=== PATIENT | male | born 1980 | race American Indian/Alaskan Native ===

== ENCOUNTER 2016-06-29 14:22 | Emergency (ER) | payer OTHER, MEDICAID ==
--- NOTE | 2016-06-29 14:24 | EDM.PDOC ---
[id number]: chest pain [id number] Time Seen by Provider: 06/29/16 14:24 Source of Information: Reports: Patient, RN, RN notes reviewed History Limitations: Reports: No limitations - History of Present Illness INITIAL COMMENTS - FREE TEXT/NARRATIVE: Complaining of sudden onset of sharp pain across the mid-chest at approximately 10 a.m. The sharp pain quickly faded to a dull ache and went away within a few minutes. Onset of pain was while at rest. The pain returned a couple hours later and patient called the ambulance to come and check him out. Paramedics told patient his EKG was normal and gave patient aspirin 324mg pox1. Patient declined ambulance transfer because the pain went away again. The pain returned a third time with more o fa pressure-like pain accompanied with SOB and did not go away. Symptom Onset Date: 06/30/16 Severity: severe Location, General: Reports: chest Quality: Reports: Ache Improves with: Reports: None Worsens with: Reports: None Context, General: Reports: Other (resting) Associated Symptoms (General): Reports: no other symptoms - Related Data Allergies/ADRs: Allergies Allergy/AdvReac Type Severity Reaction Status Date / Time amoxicillin Allergy Other Verified 06/29/16 14:52 Home Meds: Home Meds . [No Known Home Meds] 06/23/15 [History] Past Medical History HEENT History: Reports: Impaired vision Other HEENT History: wears corrective lenses Cardiovascular History: Reports: Other (see below) Other Cardiovascular History: Tachycardic episode about 6 years ago. Related it to caffiene. Had heart workup and angiogram. SVT. A-fib. Gastrointestinal History: Reports: GERD Dermatologic History: Reports: Other (see below) Other Dermatologic History: fatty tumor removed back of head - Past Surgical History Cardiovascular Surgical History: Reports: Other (see below) Other Cardiovascular Surgeries/Procedures: angiogram Social & Family History - Family History HEENT: Reports: None Cardiac: Reports: Other (see below) (Mother has some type of heart problem) - Tobacco Use Smoking Status *Q: Current Every Day Smoker Years of Tobacco use: 21 Packs/Tins Daily: 3 Used Tobacco, but Quit: No Second Hand Smoke Exposure: Yes - Caffeine Use Caffeine Use: Reports: Coffee, Soda - Recreational Drug Use Recreational Drug Use: No ED ROS GENERAL - Review of Systems Review Of Systems: ROS reveals no pertinent complaints other than HPI. ED EXAM, GENERAL - Physical Exam Exam: See Below Exam Limited By: No limitations General Appearance: alert, WD/WN, no apparent distress Eye Exam: bilateral eye: normal inspection Ears: normal external exam, normal canal, hearing grossly normal, normal TMs Nose: normal inspection, normal mucosa, no blood Throat/Mouth: Normal inspection, Normal lips, Normal teeth, Normal gums, Normal oropharynx, Normal voice, No airway compromise Head: atraumatic, normocephalic Neck: normal inspection, supple, non-tender, full range of motion Respiratory/Chest: no respiratory distress, lungs clear, normal breath sounds, no accessory muscle use, chest non-tender Cardiovascular: normal peripheral pulses, regular rate, rhythm, no edema, no gallop, no JVD, no murmur, no rub GI/Abdominal: normal bowel sounds, soft, non tender, no organomegaly, no distention, no abnormal bruit, no mass Back Exam: normal inspection, full range of motion, NT Extremities: normal inspection, normal range of motion, non-tender, normal capillary refill, no pedal edema Neurological: alert, oriented, CN II-XII intact, normal cognition, normal gait, normal reflexes, no motor/sensory deficits Psychiatric: normal affect, normal mood Skin Exam: Warm, Dry, Intact, Normal color, No rash Lymphatic: no adenopathy EKG INTERPRETATION EKG Date: 06/29/16 Time: 14:37 Rhythm: other (sinus rhythm) Rate (beats/min): 84 [place]: normal P-wave: present QRS: normal ST-T: normal QT: normal Course - Vital Signs Last Recorded V/S: Last Vital Signs Temp 36.7 C 06/29/16 15:53 Pulse 78 06/29/16 15:53 Resp 19 06/29/16 15:53 BP 111/47 L 06/29/16 15:53 Pulse Ox 96 06/29/16 15:53 - Orders/Labs/Meds Labs: Laboratory Tests 06/29/16 06/29/16 06/29/16 Range/Units 14:57 14:57 14:57 WBC 6.8 (5.0-10.0) 10^3/uL RBC 4.81 (4.6-6.2) 10^6/uL Hgb 15.5 (14.0-18.0) g/dL Hct 44.3 (40.0-54.0) % MCV 92.1 (80-100) fL MCH 32.2 (27.0-34.0) pg MCHC 35.0 (33.0-35.0) g/dL Plt Count 229 (150-450) 10^3/uL Neut % (Auto) 57.1 (42.2-75.2) % Lymph % (Auto) 26.0 (20.5-50.1) % [place] % (Auto) 9.2 H (2-8) % Eos % (Auto) 6.2 H (1.0-3.0) % Baso % (Auto) 1.5 H (0.0-1.0) % D-Dimer, Quantitative < 100 (0-400) ng/mL Sodium 141 (135-145) mmol/L Potassium 4.2 (3.6-5.0) mmol/L Chloride 106 (101-111) mmol/L Carbon Dioxide 27.0 (21.0-31.0) mmol/L Anion Gap 12.2 BUN 22 H (7-18) mg/dL Creatinine 1.3 (0.6-1.3) mg/dL Est Cr Clr Drug Dosing 79.31 mL/min Estimated GFR (MDRD) > 60 BUN/Creatinine Ratio 16.92 Glucose 108 H (74-105) mg/dL Calcium 9.0 (8.4-10.2) mg/dl Total Bilirubin 1.0 (0.2-1.0) mg/dL AST 24 (10-42) IU/L ALT 36 (10-60) IU/L Alkaline Phosphatase 46 (42-121) IU/L Creatine Kinase (26-174) IU/L Creatine Kinase Index (0-2.4) % CK-MB (CK-2) (0.4-4.7) ng/mL Troponin I 0.04 H* (0.00-0.02) ng/ml Total Protein 6.8 (6.7-8.2) g/dl Albumin 4.6 (3.2-5.5) g/dl Globulin 2.2 Albumin/Globulin Ratio 2.09 Amylase 65 (28-100) U/L Lipase 39 (22-51) U/L Urine Color (YELLOW) Urine Appearance (CLEAR) Urine pH (5.0-9.0) Ur Specific [place] (1.005-1.030) Urine Protein (NEGATIVE) Urine Glucose (UA) (NEGATIVE) Urine Ketones (NEGATIVE) Urine Occult Blood (NEGATIVE) Urine Nitrite (NEGATIVE) Urine Bilirubin (NEGATIVE) Urine Urobilinogen (0.2-1.0) mg/dL Ur Leukocyte Esterase (NEGATIVE) Urine RBC /HPF Urine WBC (0-5/HPF) /HPF Amorphous Sediment (0/HPF) /HPF Urine Opiates Screen (NEGATIVE) Ur Oxycodone Screen (NEGATIVE) Urine Methadone Screen (NEGATIVE) Ur Barbiturates Screen (NEGATIVE) U Tricyclic Antidepress (NEGATIVE) Ur Phencyclidine Scrn (NEGATIVE) Ur Amphetamine Screen (NEGATIVE) U Methamphetamines Scrn (NEGATIVE) Urine MDMA Screen (NEGATIVE) U Benzodiazepines Scrn (NEGATIVE) Urine Cocaine Screen (NEGATIVE) U Marijuana (THC) Screen (NEGATIVE) Ethyl Alcohol < 5 mg/dL 06/29/16 06/29/16 06/29/16 Range/Units 14:57 15:00 15:00 WBC (5.0-10.0) 10^3/uL RBC (4.6-6.2) 10^6/uL Hgb (14.0-18.0) g/dL Hct (40.0-54.0) % MCV (80-100) fL MCH (27.0-34.0) pg MCHC (33.0-35.0) g/dL Plt Count (150-450) 10^3/uL Neut % (Auto) (42.2-75.2) % Lymph % (Auto) (20.5-50.1) % [place] % (Auto) (2-8) % Eos % (Auto) (1.0-3.0) % Baso % (Auto) (0.0-1.0) % D-Dimer, Quantitative (0-400) ng/mL Sodium (135-145) mmol/L Potassium (3.6-5.0) mmol/L Chloride (101-111) mmol/L Carbon Dioxide (21.0-31.0) mmol/L Anion Gap BUN (7-18) mg/dL Creatinine (0.6-1.3) mg/dL Est Cr Clr Drug Dosing mL/min Estimated GFR (MDRD) BUN/Creatinine Ratio Glucose (74-105) mg/dL Calcium (8.4-10.2) mg/dl Total Bilirubin (0.2-1.0) mg/dL AST (10-42) IU/L ALT (10-60) IU/L Alkaline Phosphatase (42-121) IU/L Creatine Kinase 120 (26-174) IU/L Creatine Kinase Index 1.8 (0-2.4) % CK-MB (CK-2) 2.10 (0.4-4.7) ng/mL Troponin I (0.00-0.02) ng/ml Total Protein (6.7-8.2) g/dl Albumin (3.2-5.5) g/dl Globulin Albumin/Globulin Ratio Amylase (28-100) U/L Lipase (22-51) U/L Urine Color Yellow (YELLOW) Urine Appearance Clear (CLEAR) Urine pH 6.5 (5.0-9.0) Ur Specific [place] 1.010 (1.005-1.030) Urine Protein Negative (NEGATIVE) Urine Glucose (UA) Negative (NEGATIVE) Urine Ketones Negative (NEGATIVE) Urine Occult Blood Negative (NEGATIVE) Urine Nitrite Negative (NEGATIVE) Urine Bilirubin Negative (NEGATIVE) Urine Urobilinogen 0.2 (0.2-1.0) mg/dL Ur Leukocyte Esterase Negative (NEGATIVE) Urine RBC 0-5 /HPF Urine WBC Not seen (0-5/HPF) /HPF Amorphous Sediment Few (0/HPF) /HPF Urine Opiates Screen Negative (NEGATIVE) Ur Oxycodone Screen Negative (NEGATIVE) Urine Methadone Screen Negative (NEGATIVE) Ur Barbiturates Screen Negative (NEGATIVE) U Tricyclic Antidepress Negative (NEGATIVE) Ur Phencyclidine Scrn Negative (NEGATIVE) Ur Amphetamine Screen Negative (NEGATIVE) U Methamphetamines Scrn Negative (NEGATIVE) Urine MDMA Screen Negative (NEGATIVE) U Benzodiazepines Scrn Negative (NEGATIVE) Urine Cocaine Screen Negative (NEGATIVE) U Marijuana (THC) Screen Negative (NEGATIVE) Ethyl Alcohol mg/dL Meds: Medications Discontinued Medications Generic Name Dose Route Start Last Admin Trade Name Freq PRN Reason Stop Dose Admin Nitroglycerin 0.4 mg 06/29/16 14:53 06/29/16 15:13 Nitrostat SL 0.4 mg Q5M PRN Administration Chest Pain Sodium Chloride 10 ml 06/29/16 14:45 06/29/16 14:30 Saline Flush FLUSH 10 ml ASDIRECTED PRN Administration Keep Vein Open - Radiology Interpretation Free Text/Narrative:: Chest x-ray: Per rad report normal. Departure - Departure Time of Disposition: 15:49 Disposition: DC/Tfer to Acute Hospital 02 Reason for Transfer *Q: Primary PCI Indicated Condition: serious Clinical Impression: Non-STEMI (non-ST elevated myocardial infarction) Referrals: PCP,None [Ordering Only Provider] - Forms: ED Department Discharge, Interfacility Transfer CECILE
[2016-06-29] MEDS ORDERED: Sodium Chloride 0.9% 10 ML Syringe FLUSH PRN (14:45)
[2016-06-29] MEDS: Nitroglycerin 0.4 MG Tab.SL SL PRN ×2 (15:04→15:13)
[2016-06-29 15:30] LABS: CHLORIDE,CL 106 mmol/L (101-111); SODIUM,NA 141 mmol/L (135-145)
[2016-06-29 15:56] VITALS: BP 111/47
--- NOTE | 2016-07-21 13:20 | EKG ---
06/29/2016- CARLOS PEÑALOZA - This a standard 12-lead EKG showing normal sinus rhythm, with a heart rate of 84beats per minute. Normal PVR interval and QRS duration. Normal axis. Nosignificant ST-T changes. [facility] /[id number] [facility]
== END 2016-06-29 16:30 ==
LOC: DL.ED 14:22
DX: I21.4 Non-ST elevation (NSTEMI) myocardial infarction (principal); K21.9 Gastro-esophageal reflux disease without esophagitis; I48.91 Unspecified atrial fibrillation; F17.200 Nicotine dependence, unspecified, uncomplicated; Z88.1 Allergy status to other antibiotic agents
CPT/HCPCS: 36415; 71010; 80053; 80305; 81001; 82150; 82550; 82553; 83690; 84484; 85025; 85379; 93005; 99285; A9270; G0480; J7050

== ENCOUNTER 2017-04-17 23:22 | Emergency (ER) | payer OTHER, MEDICAID ==
--- NOTE | 2017-04-17 23:48 | EDM.PDOC ---
ED HPI GENERAL MEDICAL PROBLEM - General Chief Complaint: ENT Problem Stated Complaint: THROAT PAIN [id number] Time Seen by Provider: 04/17/17 23:47 Source of Information: Reports: Patient History Limitations: Reports: No Limitations - History of Present Illness INITIAL COMMENTS - FREE TEXT/NARRATIVE: 1 1/2 week h/o sore throat Throat Pain Score (Numeric/FACES): 9 - Related Data Allergies Allergy/AdvReac Type Severity Reaction Status Date / Time amoxicillin Allergy Other Verified 04/17/17 23:31 Home Meds: Home Meds . [No Known Home Meds] 06/23/15 [History] Past Medical History HEENT History: Reports: Impaired Vision Other HEENT History: wears corrective lenses Cardiovascular History: Reports: Other (See Below) Other Cardiovascular History: Tachycardic episode about 6 years ago. Related it to caffiene. Had heart workup and angiogram. SVT. A-fib. Respiratory History: Reports: None Gastrointestinal History: Reports: GERD Genitourinary History: Reports: None Musculoskeletal History: Reports: None Neurological History: Reports: None Psychiatric History: Reports: None Endocrine/Metabolic History: Reports: None Hematologic History: Reports: None Immunologic History: Reports: None Oncologic (Cancer) History: Reports: None Dermatologic History: Reports: Other (See Below) Other Dermatologic History: fatty tumor removed back of head - Infectious Disease History Infectious Disease History: Reports: Chicken Pox, Measles, Mumps - Past Surgical History Head Surgeries/Procedures: Reports: Other (See Below) HEENT Surgical History: Reports: Other (See Below) Cardiovascular Surgical History: Reports: Other (See Below) Social & Family History - Family History HEENT: Reports: None Cardiac: Reports: Other (See Below) - Tobacco Use Smoking Status *Q: Current Every Day Smoker Years of Tobacco use: 21 Packs/Tins Daily: 3 Used Tobacco, but Quit: No Second Hand Smoke Exposure: Yes - Caffeine Use Caffeine Use: Reports: Coffee, Soda - Recreational Drug Use Recreational Drug Use: No ED ROS ENT - Review of Systems Review Of Systems: ROS reveals no pertinent complaints other than HPI. ED EXAM, ENT - Physical Exam Exam: See Below Exam Limited By: No Limitations General Appearance: Alert, WD/WN, No Apparent Distress Ears: Hearing Grossly Normal Mouth/Throat: Pharyngeal Erythema, Tonsillar Erythema Head: Atraumatic Neck: Non-Tender, Full Range of Motion Respiratory/Chest: No Respiratory Distress Cardiovascular: Regular Rate, Rhythm GI/Abdominal: Soft, Non-Tender Neurological: Alert, Oriented, Normal Cognition, Normal Gait, No Motor/Sensory Deficits Psychiatric: Normal Affect, Normal Mood Skin: Warm, Dry, Normal Color Lymphatic: No Adenopathy Course - Vital Signs Last Recorded V/S: Last Vital Signs Temp 36.7 C 04/18/17 00:00 Pulse 90 04/18/17 00:00 Resp 20 04/18/17 00:00 BP 145/102 H 04/18/17 00:00 Pulse Ox 97 04/18/17 00:00 - Orders/Labs/Meds Orders: Active Orders 24 hr Category Date Time Status CULTURE STREP A CONFIRMATION [RM] Stat Lab 04/17/17 23:33 Results STREP SCRN A RAPID W CULT CONF [] Stat Lab 04/17/17 23:33 Results Meds: Medications Discontinued Medications Generic Name Dose Route Start Last Admin Trade Name Freq PRN Reason Stop Dose Admin Azithromycin 500 mg 04/18/17 00:21 Zithromax PO 04/18/17 00:22 ONETIME ONE - Re-Assessments/Exams Free Text/Narrative Re-Assessment/Exam: 04/18/17 00:23 results discussed with pt. Departure - Departure Time of Disposition: 00:23 Disposition: Home, Self-Care 01 Condition: Good Clinical Impression: Tonsillitis - Discharge Information Instructions: Tonsillitis, [id number] Forms: ED Department Discharge Additional Instructions: 1) avoid solid foods 2) have soft foods and liquids 3) try salt water gargle 4) take tylenol or motrin for fever 5) see clinic for BP check rx given; z-kaylyn - My Orders Last 24 Hours: My Active Orders 04/17/17 23:33 CULTURE STREP A CONFIRMATION [RM] Stat STREP SCRN A RAPID W CULT CONF [] Stat - Assessment/Plan Last 24 Hours: My Active Orders 04/17/17 23:33 CULTURE STREP A CONFIRMATION [RM] Stat STREP SCRN A RAPID W CULT CONF [RM] Stat
[2017-04-18 00:01] VITALS: BP 145/102
[2017-04-18] MEDS ORDERED: Azithromycin 250 MG Tab PO ONE (00:21)
[2017-04-18] MEDS ORDERED: Azithromycin 250 MG Tab ONE (00:29)
== END 2017-04-18 00:36 | disposition home or self-care (01) ==
LOC: DL.ED 23:22
DX: J03.90 Acute tonsillitis, unspecified (principal); F17.210 Nicotine dependence, cigarettes, uncomplicated; Z88.1 Allergy status to other antibiotic agents
CPT/HCPCS: 87081; 87430; 87804; 99282; A9270

== ENCOUNTER 2017-05-06 17:32 | Emergency (ER) | payer OTHER, MEDICAID ==
--- NOTE | 2017-05-06 17:37 | EDM.PDOC ---
<Ariel Stuart M - Last Filed: 05/06/17 18:36> ED HPI GENERAL MEDICAL PROBLEM - General Stated Complaint: CAME BY AMBULANCE, GENERAL Time Seen by Provider: 05/06/17 17:25 Source of Information: Reports: Patient History Limitations: Reports: No Limitations - History of Present Illness INITIAL COMMENTS - FREE TEXT/NARRATIVE: This 36 yo male patient was brought to the ED by [facility] due to left sided upper chest pain radiating down his right arm. The patient reports his pain started at about 1600 today. EMS has given the patient Aspirin and 2 doses of nitro with no change in symptoms. The patient reports his pain is currently a 7/10. The patient was sent to [place] about 1 month ago for a NSTEMI. The patient reports that he had an echo which demonstrated a "leaky" valve. The patient reports increased pain in the left anterior chest with inspiration and palpation of the left upper pectoral muscle. Onset: Today Onset Date: 05/06/17 Onset Time: 16:00 Duration: Constant Location: Reports: Chest (left upper chest) Quality: Reports: Ache Severity: Mild Improves with: Reports: None Worsens with: Reports: None Associated Symptoms: Reports: No Other Symptoms Treatments INSPECTOR INSULATION: Reports: Aspirin, Nitroglycerin (x2) Left Chest Pain Score (Numeric/FACES): 7 - Related Data Allergies Allergy/AdvReac Type Severity Reaction Status Date / Time amoxicillin Allergy Other Verified 05/06/17 17:32 Home Meds: Home Meds . [No Known Home Meds] 06/23/15 [History] Past Medical History HEENT History: Reports: Impaired Vision Other HEENT History: wears corrective lenses Cardiovascular History: Reports: Other (See Below) Other Cardiovascular History: Tachycardic episode about 6 years ago. Related it to caffiene. Had heart workup and angiogram. SVT. A-fib. Respiratory History: Reports: None Gastrointestinal History: Reports: GERD Genitourinary History: Reports: None Musculoskeletal History: Reports: None Neurological History: Reports: None Psychiatric History: Reports: None Endocrine/Metabolic History: Reports: None Hematologic History: Reports: None Immunologic History: Reports: None Oncologic (Cancer) History: Reports: None Dermatologic History: Reports: Other (See Below) Other Dermatologic History: fatty tumor removed back of head - Infectious Disease History Infectious Disease History: Reports: Chicken Pox, Measles, Mumps - Past Surgical History Head Surgeries/Procedures: Reports: Other (See Below) HEENT Surgical History: Reports: Other (See Below) Cardiovascular Surgical History: Reports: Other (See Below) Social & Family History - Family History HEENT: Reports: None Cardiac: Reports: Other (See Below) - Tobacco Use Smoking Status *Q: Current Every Day Smoker Years of Tobacco use: 21 Packs/Tins Daily: 3 Used Tobacco, but Quit: No Second Hand Smoke Exposure: Yes - Caffeine Use Caffeine Use: Reports: Coffee, Soda - Recreational Drug Use Recreational Drug Use: No ED ROS GENERAL - Review of Systems Review Of Systems: ROS reveals no pertinent complaints other than HPI. ED EXAM, GENERAL - Physical Exam Exam: See Below Exam Limited By: No Limitations General Appearance: Alert, WD/WN, Moderate Distress, Obese Eye Exam: Bilateral Eye: EOMI, Normal Inspection, PERRL Ears: Normal External Exam, Normal Canal, Hearing Grossly Normal, Normal TMs Nose: Normal Inspection, Normal Mucosa, No Blood Throat/Mouth: Normal Inspection, Normal Lips, Normal Teeth, Normal Gums, Normal Oropharynx, Normal Voice, No Airway Compromise Head: Atraumatic, Normocephalic Neck: Normal Inspection, Supple, Non-Tender, Full Range of Motion Respiratory/Chest: No Respiratory Distress, Lungs Clear, Normal Breath Sounds, No Accessory Muscle Use, Chest Non-Tender Cardiovascular: Normal Peripheral Pulses, Regular Rate, Rhythm, No Edema, No Gallop, No JVD, No Murmur, No Rub GI/Abdominal: Normal Bowel Sounds, Soft, Non-Tender, No Organomegaly, No Distention, No Abnormal Bruit, No Mass (Male) Exam: Deferred Rectal (Males) Exam: Deferred Extremities: Normal Inspection, Normal Range of Motion, Non-Tender, Normal Capillary Refill, No Pedal Edema Neurological: Alert, Oriented, CN II-XII Intact, Normal Cognition, Normal Gait, Normal Reflexes, No Motor/Sensory Deficits Psychiatric: Normal Affect, Normal Mood Skin Exam: Warm, Dry, Intact, Normal Color, No Rash Lymphatic: No Adenopathy Course - Vital Signs Last Recorded V/S: Last Vital Signs Temp 98.9 F 05/06/17 23:41 Pulse 70 05/06/17 23:41 Resp 14 05/06/17 23:41 BP 128/69 05/06/17 23:41 Pulse Ox 97 02/14/18 23:41 - Orders/Labs/Meds Orders: Active Orders 24 hr Category Date Time Status EKG Documentation Completion [RC] URGENT Care 05/06/17 17:29 Active Labs: Laboratory Tests 05/06/17 05/06/17 05/06/17 Range/Units 17:50 17:50 21:52 WBC 6.1 (5.0-10.0) 10^3/uL RBC 4.87 (4.6-6.2) 10^6/uL Hgb 15.3 (14.0-18.0) g/dL Hct 43.7 (40.0-54.0) % MCV 89.7 (80-100) fL MCH 31.4 (27.0-34.0) pg MCHC 35.0 (33.0-35.0) g/dL Plt Count 241 (150-450) 10^3/uL Neut % (Auto) 51.8 (42.2-75.2) % Lymph % (Auto) 32.0 (20.5-50.1) % [place] % (Auto) 9.9 H (2-8) % Eos % (Auto) 5.1 H (1.0-3.0) % Baso % (Auto) 1.2 H (0.0-1.0) % Sodium 139 (135-145) mmol/L Potassium 3.6 (3.6-5.0) mmol/L Chloride 106 (101-111) mmol/L Carbon Dioxide 25.0 (21.0-31.0) mmol/L Anion Gap 11.6 BUN 16 (7-18) mg/dL Creatinine 0.9 (0.6-1.3) mg/dL Est Cr Clr Drug Dosing 117.16 mL/min Estimated GFR (MDRD) > 60 BUN/Creatinine Ratio 17.77 Glucose 98 (74-105) mg/dL Calcium 9.1 (8.4-10.2) mg/dl Total Bilirubin 1.7 H (0.2-1.0) mg/dL AST 35 (10-42) IU/L ALT 46 (10-60) IU/L Alkaline Phosphatase 36 L (42-121) IU/L Troponin I < 0.02 < 0.02 (0.00-0.02) ng/ml Total Protein 6.6 L (6.7-8.2) g/dl Albumin 4.6 (3.2-5.5) g/dl Globulin 2.0 Albumin/Globulin Ratio 2.30 Departure - Departure Disposition: Home, Self-Care 01 Clinical Impression: Non-cardiac chest pain Instructions: Chest Wall Pain, [id number] Referrals: Christal Farrell MD [Primary Care Provider] - Forms: ED Department Discharge Additional Instructions: light diet avoid spicy food follow up in clinic 3-5 days <Diana Mejia - Last Filed: 05/07/17 05:10> Course - Re-Assessments/Exams Free Text/Narrative Re-Assessment/Exam: 05/07/17 03:01 Repeat troponin negative Departure - Departure Time of Disposition: 23:33 Condition: Good
[2017-05-06 18:16] LABS: CHLORIDE,CL 106 mmol/L (101-111); SODIUM,NA 139 mmol/L (135-145)
[2017-05-06 23:42] VITALS: BP 128/69
--- NOTE | 2017-05-07 23:04 | EKG ---
05/06/2017 - CARLOS PEÑALOZA I reviewed the EKG and agree with the machine's reading. [facility] /[id number]
== END 2017-05-06 23:40 | disposition home or self-care (01) ==
LOC: DL.ED 17:32
DX: R07.89 Other chest pain (principal); F17.210 Nicotine dependence, cigarettes, uncomplicated; Z88.1 Allergy status to other antibiotic agents
CPT/HCPCS: 36415; 71045; 80053; 84484; 85025; 93005; 99285

== ENCOUNTER 2017-07-05 23:22 | Emergency (ER) | payer MEDICAID, OTHER ==
[2017-07-05] MEDS ORDERED: Aspirin 81 MG Tab.Chew PO ONE (23:46)
[2017-07-05] MEDS ORDERED: Metoprolol Tartrate 5 MG/5 ML SDV IVPUSH ONE (23:49)
[2017-07-06 00:07] LABS: ANION GAP 13.8; CHLORIDE,CL 107 mmol/L (101-111); SODIUM,NA 139 mmol/L (135-145)
[2017-07-06] MEDS ORDERED: Sodium Chloride 0.9% 1,000 ML IV ONE (00:07)
[2017-07-06] MEDS ORDERED: Nitroglycerin 0.4 MG Tab.SL SL ONE ×2 (00:08→00:25)
[2017-07-06] MEDS ORDERED: Diltiazem 25 MG/5 ML SDV IVPUSH ONE (00:25)
[2017-07-06] MEDS ORDERED: Acetaminophen 325 MG Tab PO ONE (00:26)
[2017-07-06] MEDS ORDERED: Morphine 2 MG/ML Syringe IVPUSH ONE (00:41)
[2017-07-06] MEDS ORDERED: Ondansetron 4 MG/2 ML SDV IV ONE (00:42)
[2017-07-06] MEDS ORDERED: Enoxaparin 100 MG/1 ML Syringe SUBCUT ONE (01:41)
[2017-07-06] MEDS ORDERED: Diltiazem IR 30 MG Tab PO ONE (01:46)
--- NOTE | 2017-07-06 01:56 | EDM.PDOC ---
ED HPI GENERAL MEDICAL PROBLEM - General Chief Complaint: Chest Pain Stated Complaint: CHEST PAIN [id number] Time Seen by Provider: 07/05/17 23:30 Source of Information: Reports: Patient History Limitations: Reports: No Limitations - History of Present Illness INITIAL COMMENTS - FREE TEXT/NARRATIVE: C/O chest pain and feeling SOB with activity. Sudden onset of symptoms while at work. Has had similar symptoms in past. Denies prior LA but has had episodes of A-b. Is on no current medications. Reports last time he was transferred to was released following day and was told he had" leaky valve". Follow up with [facility] was attended and was told "he didn't need to follow again. Describes chesta pain as sharp ocassional radiation to left arm. No sweating, or nausea Anterior Chest Pain Score (Numeric/FACES): 5 - Related Data Allergies Allergy/AdvReac Type Severity Reaction Status Date / Time amoxicillin Allergy Other Verified 07/05/17 23:46 Home Meds: Home Meds . [No Known Home Meds] 06/23/15 [History] Past Medical History HEENT History: Reports: Impaired Vision Other HEENT History: wears corrective lenses Cardiovascular History: Reports: Hypertension, Other (See Below) Other Cardiovascular History: Tachycardic episode about 6 years ago. Related it to caffiene. Had heart workup and angiogram. SVT. A-fib. Respiratory History: Reports: None Gastrointestinal History: Reports: GERD Genitourinary History: Reports: None Musculoskeletal History: Reports: None Neurological History: Reports: None Psychiatric History: Reports: None, Anxiety Endocrine/Metabolic History: Reports: None, Diabetes, Type II Hematologic History: Reports: None Immunologic History: Reports: None Oncologic (Cancer) History: Reports: None Dermatologic History: Reports: Other (See Below) Other Dermatologic History: fatty tumor removed back of head - Infectious Disease History Infectious Disease History: Reports: Chicken Pox, Measles, Mumps - Past Surgical History Head Surgeries/Procedures: Reports: Other (See Below) HEENT Surgical History: Reports: Other (See Below) Cardiovascular Surgical History: Reports: Other (See Below) Social & Family History - Family History HEENT: Reports: None Cardiac: Reports: Other (See Below) - Tobacco Use Smoking Status *Q: Current Every Day Smoker Years of Tobacco use: 20 Packs/Tins Daily: 0.2 Used Tobacco, but Quit: No Second Hand Smoke Exposure: Yes - Caffeine Use Caffeine Use: Reports: Coffee Other Caffeine Use: 2cups/day - Recreational Drug Use Recreational Drug Use: No ED ROS GENERAL - Review of Systems Review Of Systems: ROS reveals no pertinent complaints other than HPI. ED EXAM, GENERAL - Physical Exam Exam: See Below Exam Limited By: No Limitations General Appearance: Alert, Mild Distress, Obese Eye Exam: Bilateral Eye: EOMI Ears: Normal External Exam Nose: Normal Inspection Throat/Mouth: Normal Inspection Head: Atraumatic, Normocephalic Neck: Normal Inspection Respiratory/Chest: Lungs Clear, Other (mild dyspnea with conversation noted when HR greater than 130.) Cardiovascular: No Edema, No JVD, No Murmur, Tachycardia, Irregularly Irregular GI/Abdominal: Normal Bowel Sounds, Soft Extremities: Normal Range of Motion Neurological: Alert, Normal Cognition Psychiatric: Normal Affect Skin Exam: Warm, Dry, Intact, Normal Color Course - Vital Signs Last Recorded V/S: Last Vital Signs Temp 97.8 F 07/06/17 02:03 Pulse 88 07/06/17 02:03 Resp 16 07/06/17 02:03 BP 125/75 07/06/17 02:03 Pulse Ox 93 L 07/06/17 02:03 - Orders/Labs/Meds Orders: Active Orders 24 hr Category Date Time Status EKG 12 Lead [EKG Documentation Completion] [RC] URGENT Care 07/06/17 00:05 Active EKG 12 Lead [EKG Documentation Completion] [RC] URGENT Care 07/06/17 00:47 Active UA W/MICROSCOPIC [URIN] Stat Lab 07/06/17 00:20 Ordered Labs: Laboratory Tests 07/05/17 07/05/17 07/05/17 Range/Units 23:35 23:35 23:35 WBC 7.4 (5.0-10.0) 10^3/uL RBC 5.09 (4.6-6.2) 10^6/uL Hgb 16.4 (14.0-18.0) g/dL Hct 46.2 (40.0-54.0) % MCV 90.8 (80-100) fL MCH 32.2 (27.0-34.0) pg MCHC 35.5 H (33.0-35.0) g/dL Plt Count 254 (150-450) 10^3/uL Neut % (Auto) 45.5 (42.2-75.2) % Lymph % (Auto) 31.4 (20.5-50.1) % Mccormick % (Auto) 11.9 H (2-8) % Eos % (Auto) 9.7 H (1.0-3.0) % Baso % (Auto) 1.5 H (0.0-1.0) % PT (9.0-12.0) SEC INR (0.9-1.2) D-Dimer, Quantitative (0-400) ng/mL Sodium 139 (135-145) mmol/L Potassium 3.8 (3.6-5.0) mmol/L Chloride 107 (101-111) mmol/L Carbon Dioxide 22.0 (21.0-31.0) mmol/L Anion Gap 13.8 BUN 28 H (7-18) mg/dL Creatinine 1.0 (0.6-1.3) mg/dL Est Cr Clr Drug Dosing 95.48 mL/min Estimated GFR (MDRD) > 60 BUN/Creatinine Ratio 28.00 Glucose 127 H (74-105) mg/dL Calcium 9.4 (8.4-10.2) mg/dl Total Bilirubin 1.5 H (0.2-1.0) mg/dL AST 35 (10-42) IU/L ALT 56 (10-60) IU/L Alkaline Phosphatase 43 (42-121) IU/L CK-MB (CK-2) 4.10 (0.4-4.7) ng/mL Troponin I < 0.02 (0.00-0.02) ng/ml Total Protein 7.4 (6.7-8.2) g/dl Albumin 4.8 (3.2-5.5) g/dl Globulin 2.6 Albumin/Globulin Ratio 1.85 Urine Color (YELLOW) Urine Appearance (CLEAR) Urine pH (5.0-9.0) Ur Specific Force (1.005-1.030) Urine Protein (NEGATIVE) Urine Glucose (UA) (NEGATIVE) Urine Ketones (NEGATIVE) Urine Occult Blood (NEGATIVE) Urine Nitrite (NEGATIVE) Urine Bilirubin (NEGATIVE) Urine Urobilinogen (0.2-1.0) mg/dL Ur Leukocyte Esterase (NEGATIVE) Urine RBC /HPF Urine WBC (0-5/HPF) /HPF Ur Epithelial Cells /HPF Urine Bacteria (0-FEW/HPF) /HPF 07/05/17 07/06/17 07/06/17 Range/Units 23:35 00:20 03:25 WBC (5.0-10.0) 10^3/uL RBC (4.6-6.2) 10^6/uL Hgb (14.0-18.0) g/dL Hct (40.0-54.0) % MCV (80-100) fL MCH (27.0-34.0) pg MCHC (33.0-35.0) g/dL Plt Count (150-450) 10^3/uL Neut % (Auto) (42.2-75.2) % Lymph % (Auto) (20.5-50.1) % Mccormick % (Auto) (2-8) % Eos % (Auto) (1.0-3.0) % Baso % (Auto) (0.0-1.0) % PT 10.1 (9.0-12.0) SEC INR 1.0 (0.9-1.2) D-Dimer, Quantitative < 100 (0-400) ng/mL Sodium (135-145) mmol/L Potassium (3.6-5.0) mmol/L Chloride (101-111) mmol/L Carbon Dioxide (21.0-31.0) mmol/L Anion Gap BUN (7-18) mg/dL Creatinine (0.6-1.3) mg/dL Est Cr Clr Drug Dosing mL/min Estimated GFR (MDRD) BUN/Creatinine Ratio Glucose (74-105) mg/dL Calcium (8.4-10.2) mg/dl Total Bilirubin (0.2-1.0) mg/dL AST (10-42) IU/L ALT (10-60) IU/L Alkaline Phosphatase (42-121) IU/L CK-MB (CK-2) 3.40 (0.4-4.7) ng/mL Troponin I (0.00-0.02) ng/ml Total Protein (6.7-8.2) g/dl Albumin (3.2-5.5) g/dl Globulin Albumin/Globulin Ratio Urine Color Yellow (YELLOW) Urine Appearance Clear (CLEAR) Urine pH 6.0 (5.0-9.0) Ur Specific Force 1.015 (1.005-1.030) Urine Protein Negative (NEGATIVE) Urine Glucose (UA) Negative (NEGATIVE) Urine Ketones Negative (NEGATIVE) Urine Occult Blood Negative (NEGATIVE) Urine Nitrite Negative (NEGATIVE) Urine Bilirubin Negative (NEGATIVE) Urine Urobilinogen 0.2 (0.2-1.0) mg/dL Ur Leukocyte Esterase Negative (NEGATIVE) Urine RBC 0-5 /HPF Urine WBC 0-5 (0-5/HPF) /HPF Ur Epithelial Cells Rare /HPF Urine Bacteria Few (0-FEW/HPF) /HPF / Range/Units 03:25 WBC (5.0-10.0) 10^3/uL RBC (4.6-6.2) 10^6/uL Hgb (14.0-18.0) g/dL Hct (40.0-54.0) % MCV (80-100) fL MCH (27.0-34.0) pg MCHC (33.0-35.0) g/dL Plt Count (150-450) 10^3/uL Neut % (Auto) (42.2-75.2) % Lymph % (Auto) (20.5-50.1) % Mccormick % (Auto) (2-8) % Eos % (Auto) (1.0-3.0) % Baso % (Auto) (0.0-1.0) % PT (9.0-12.0) SEC INR (0.9-1.2) D-Dimer, Quantitative (0-400) ng/mL Sodium (135-145) mmol/L Potassium (3.6-5.0) mmol/L Chloride (101-111) mmol/L Carbon Dioxide (21.0-31.0) mmol/L Anion Gap BUN (7-18) mg/dL Creatinine (0.6-1.3) mg/dL Est Cr Clr Drug Dosing mL/min Estimated GFR (MDRD) BUN/Creatinine Ratio Glucose (74-105) mg/dL Calcium (8.4-10.2) mg/dl Total Bilirubin (0.2-1.0) mg/dL AST (10-42) IU/L ALT (10-60) IU/L Alkaline Phosphatase (42-121) IU/L CK-MB (CK-2) (0.4-4.7) ng/mL Troponin I < 0.02 (0.00-0.02) ng/ml Total Protein (6.7-8.2) g/dl Albumin (3.2-5.5) g/dl Globulin Albumin/Globulin Ratio Urine Color (YELLOW) Urine Appearance (CLEAR) Urine pH (5.0-9.0) Ur Specific Force (1.005-1.030) Urine Protein (NEGATIVE) Urine Glucose (UA) (NEGATIVE) Urine Ketones (NEGATIVE) Urine Occult Blood (NEGATIVE) Urine Nitrite (NEGATIVE) Urine Bilirubin (NEGATIVE) Urine Urobilinogen (0.2-1.0) mg/dL Ur Leukocyte Esterase (NEGATIVE) Urine RBC /HPF Urine WBC (0-5/HPF) /HPF Ur Epithelial Cells /HPF Urine Bacteria (0-FEW/HPF) /HPF Meds: Medications Discontinued Medications Generic Name Dose Route Start Last Admin Trade Name Freq PRN Reason Stop Dose Admin Acetaminophen 650 mg 07/06/17 00:26 07/06/17 00:28 Tylenol PO 07/06/17 00:27 650 mg NOW ONE Administration Aspirin 325 mg 07/05/17 23:46 07/05/17 23:52 Aspirin PO 07/05/17 23:47 324 mg ONETIME ONE Administration Diltiazem HCl 10 mg 07/06/17 00:25 07/06/17 00:29 Diltiazem IVPUSH 07/06/17 00:26 10 mg ONETIME ONE Administration Diltiazem HCl 30 mg 07/06/17 01:46 07/06/17 01:51 Cardizem PO 07/06/17 01:47 30 mg ONETIME ONE Administration Enoxaparin Sodium 100 mg 07/06/17 01:41 07/06/17 01:59 Lovenox SUBCUT 07/06/17 01:42 100 mg ONETIME ONE Administration Sodium Chloride 1,000 mls @ 999 mls/hr 07/06/17 00:07 07/06/17 00:13 Normal Saline IV 07/06/17 01:07 999 mls/hr .BOLUS ONE Administration Metoprolol Tartrate 2.5 mg 07/05/17 23:49 07/05/17 23:53 Lopressor IVPUSH 07/05/17 23:50 2.5 mg ONETIME ONE Administration Morphine Sulfate 2 mg 07/06/17 00:41 07/06/17 00:50 Morphine IVPUSH 07/06/17 00:42 2 mg ONETIME ONE Administration Nitroglycerin 0.4 mg 07/06/17 00:08 07/06/17 00:13 Nitrostat SL 07/06/17 00:09 0.4 mg ONETIME ONE Administration Nitroglycerin 0.4 mg 07/06/17 00:25 07/06/17 00:27 Nitrostat SL 07/06/17 00:26 0.4 mg ONETIME ONE Administration Ondansetron HCl 4 mg 07/06/17 00:42 07/06/17 00:48 Zofran IV 07/06/17 00:43 4 mg ONETIME ONE Administration - Radiology Interpretation Free Text/Narrative:: normal cxr - Re-Assessments/Exams Free Text/Narrative Re-Assessment/Exam: 07/06/17 01:52 Minimal response t with lopressor, chest pain decreased to 5 with 2 nitro with drop in pressure. Morphine 2mg for pain, Cardiazem given with good response with conversion to NSR with rate in 80's. Patient pain free. TC consult with Dr. 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 Risk discussed with patient. Await repeat lab. Pos cardizem and lovenox one time. 07/06/17 04:11 Repeat troponin negative. Remains in NSR. Up walking HR sustained below 100. As patient refusing transfer to higher level of care for further evaluation patient to home. Has stated he will follow up in clinic with PCP in am for ongoing management. 07/06/17 04:27 Refusal for transfer form signed by patient. 07/06/17 04:35 Departure - Departure Time of Disposition: 04:38 Disposition: Home, Self-Care 01 Condition: Good Clinical Impression: Paroxysmal atrial fibrillation Instructions: Atrial Fibrillation, [id number] Referrals: Christal Farrell MD [Primary Care Provider] - Forms: ED Department Discharge Additional Instructions: Follow up in clinic in am Enteric Aspirin 325 one daily No smoking No caffeine Urgent follow up if racing heart or chest pain - My Orders Last 24 Hours: My Active Orders 07/06/17 00:05 EKG 12 Lead [EKG Documentation Completion] [RC] URGENT 07/06/17 00:20 UA W/MICROSCOPIC [URIN] Stat 07/06/17 00:47 EKG 12 Lead [EKG Documentation Completion] [RC] URGENT - Assessment/Plan Last 24 Hours: My Active Orders 07/06/17 00:05 EKG 12 Lead [EKG Documentation Completion] [RC] URGENT 07/06/17 00:20 UA W/MICROSCOPIC [URIN] Stat 07/06/17 00:47 EKG 12 Lead [EKG Documentation Completion] [RC] URGENT
[2017-07-06 02:05] VITALS: BP 125/75
--- NOTE | 2017-08-07 07:40 | EKG ---
07/06/2017- CARLOS PEÑALOZA - 2336 hours EKG is atrial fibrillation with a rate of 137. Oscar is within normal limits. IMPRESSION: Abnormal electrocardiogram compatible with atrial fibrillation with rapid ventricular response. [facility] /[id number]
--- NOTE | 2017-08-07 07:43 | EKG ---
07/06/2017 - JH CARLOS KARENA - 0055 hours EKG is sinus rhythm with a rate of 97. Normal MD interval. Normal axis. EKG is within normal limits. Comparing it to EKG on 07/05/2017, the rhythm has converted to sinus. [facility] /[id number]
== END 2017-07-06 04:31 | disposition home or self-care (01) ==
LOC: DL.ED 23:22
DX: I48.0 Paroxysmal atrial fibrillation (principal); I10 Essential (primary) hypertension; E11.9 Type 2 diabetes mellitus without complications; F17.210 Nicotine dependence, cigarettes, uncomplicated; Z88.1 Allergy status to other antibiotic agents
CPT/HCPCS: 36415; 71045; 80053; 81001; 82553; 84484; 85025; 85379; 85610; 93005; 96361; 96372; 96374; 96375; 99285; A9270; J1650; J2270; J2405; J3490; J7030

== ENCOUNTER 2017-10-08 00:19 | Emergency (ER) | payer MEDICAID ==
[2017-10-08 00:34] VITALS: BP 135/83
[2017-10-08] MEDS ORDERED: Lidocaine 1% 30 ML SDV INJECT ONE (00:36)
[2017-10-08] MEDS ORDERED: Bacitracin Oint 1 GM U/D Packet TOP ONE (00:36)
[2017-10-08] MEDS ORDERED: Doxycycline 100 MG Cap PO ONE (01:15)
--- NOTE | 2017-10-08 01:22 | EDM.PDOC ---
ED HPI GENERAL MEDICAL PROBLEM - General Chief Complaint: Bite:Animal, Insect Stated Complaint: SPIDER BITE [id number] Time Seen by Provider: 10/08/17 00:33 Source of Information: Reports: Patient History Limitations: Reports: No Limitations - History of Present Illness INITIAL COMMENTS - FREE TEXT/NARRATIVE: red area to right chest unsure if bug bite, draining when got out of shower, white pus type, area around increasing redness, tender. No hx skin infections No fever or chills. Right Chest Pain Score (Numeric/FACES): 2 - Related Data Allergies Allergy/AdvReac Type Severity Reaction Status Date / Time amoxicillin Allergy Other Verified 10/08/17 00:25 Home Meds: Home Meds . [No Known Home Meds] 06/23/15 [History] Past Medical History HEENT History: Reports: Impaired Vision Other HEENT History: wears corrective lenses Cardiovascular History: Reports: Hypertension, Other (See Below) Other Cardiovascular History: Tachycardic episode about 6 years ago. Related it to caffiene. Had heart workup and angiogram. SVT. A-fib. States he also has a "leaky heart valve" Respiratory History: Reports: None Gastrointestinal History: Reports: GERD Genitourinary History: Reports: None Musculoskeletal History: Reports: None Neurological History: Reports: None Psychiatric History: Reports: None, Anxiety Endocrine/Metabolic History: Reports: None, Diabetes, Type II Hematologic History: Reports: None Immunologic History: Reports: None Oncologic (Cancer) History: Reports: None Dermatologic History: Reports: Other (See Below) Other Dermatologic History: fatty tumor removed back of head - Infectious Disease History Infectious Disease History: Reports: Chicken Pox, Measles, Mumps - Past Surgical History Head Surgeries/Procedures: Reports: Other (See Below) Cardiovascular Surgical History: Reports: Other (See Below) Social & Family History - Family History Family Medical History: Noncontributory HEENT: Reports: None Cardiac: Reports: Other (See Below) - Tobacco Use Smoking Status *Q: Current Every Day Smoker Years of Tobacco use: 21 Packs/Tins Daily: 1 - Caffeine Use Caffeine Use: Reports: Coffee Other Caffeine Use: 2cups/day - Recreational Drug Use Recreational Drug Use: No ED ROS GENERAL - Review of Systems Review Of Systems: ROS reveals no pertinent complaints other than HPI. ED EXAM, ANIMAL BITE - Physical Exam Exam: See Below Exam Limited By: No Limitations General Appearance: Alert, No Apparent Distress Eye Exam: Bilateral Eye: EOMI Ears: Normal External Exam Throat/Mouth: Normal Inspection Head: Atraumatic, Normocephalic Neck: Normal Inspection. No: Lymphadenopathy (L), Lymphadenopathy (R) Respiratory/Chest: No Respiratory Distress, Lungs Clear, Other (red area upper right anterior chest) Cardiovascular: Regular Rate, Rhythm GI/Abdominal: Normal Bowel Sounds Extremities: Normal Inspection, Normal Range of Motion Neurological: Alert, Oriented, Normal Cognition Psychiatric: Normal Affect, Normal Mood Skin Exam: Other (5x4 red mildly indurated area, central punctate center with 1mm white center) ED ANIMAL BITE PROCEDURES - I&D Skin Prep: Providone-Iodine (Betadine) Local Anesthesia: Lidocaine: 1% Plain Local Anesthetic Volume: 1cc Area Incised With: 11 Blade Drainage: Purulent, Bloody, Small Amount Probed to Break Up Loculations: No Sterile Dressinx4(s) Complications: No Course - Vital Signs Last Recorded V/S: Last Vital Signs Temp 98.8 F 10/08/17 00:33 Pulse 84 10/08/17 00:33 Resp 20 10/08/17 00:33 BP 135/83 10/08/17 00:33 Pulse Ox 95 10/08/17 00:33 - Orders/Labs/Meds Orders: Active Orders 24 hr Category Date Time Status CULTURE WOUND [RM] Stat Lab 10/08/17 01:05 Received Meds: Medications Discontinued Medications Generic Name Dose Route Start Last Admin Trade Name Tena PRN Reason Stop Dose Admin Bacitracin 1 dose 10/08/17 00:36 10/08/17 01:09 Bacitracin Oint 1 Gm TOP 10/08/17 00:37 1 dose ONETIME ONE Administration Doxycycline Hyclate 100 mg 10/08/17 01:15 Vibramycin PO 10/08/17 01:16 ONETIME ONE Lidocaine HCl 30 ml 10/08/17 00:36 10/08/17 01:09 Xylocaine-Mpf 1% INJECT 10/08/17 00:37 30 ml ONETIME ONE Administration Departure - Departure Time of Disposition: 01:16 Disposition: Home, Self-Care 01 Condition: Good Clinical Impression: Abscess, Cellulitis of chest wall - Discharge Information Instructions: Cellulitis, Adult, [id number] Forms: ED Department Discharge Additional Instructions: warm pack to are 3 times daily 10minutes cover area with dressing if draining doxycycline 100mg one twice daily x 10 daysfollow up if increased redness or fevers tylenol or ibuprofen for discomfort - My Orders Last 24 Hours: My Active Orders 10/08/17 01:05 CULTURE WOUND [] Stat - Assessment/Plan Last 24 Hours: My Active Orders 10/08/17 01:05 CULTURE WOUND [RM] Stat
== END 2017-10-08 01:27 | disposition home or self-care (01) ==
LOC: DL.ED 00:19
DX: L03.313 Cellulitis of chest wall (principal); L02.213 Cutaneous abscess of chest wall; I10 Essential (primary) hypertension; E11.9 Type 2 diabetes mellitus without complications; F17.210 Nicotine dependence, cigarettes, uncomplicated
CPT/HCPCS: 10060; 87070; 87077; 87186; 99283; A9270

== ENCOUNTER 2019-03-15 18:26 | Emergency (ER) | payer MEDICAID, OTHER ==
[2019-03-15 18:38] VITALS: PULSE 88
[2019-03-15] MEDS ORDERED: Sodium Chloride 0.9% 10 ML Syringe FLUSH PRN (18:40)
[2019-03-15] MEDS ORDERED: Nitroglycerin 0.4 MG Tab.SL SL PRN (18:43)
[2019-03-15] MEDS ORDERED: Aspirin 81 MG Tab.Chew PO ONE (18:43)
[2019-03-15 18:55] VITALS: BP 133/62
--- NOTE | 2019-03-15 18:56 | EDM.PDOC ---
ED HPI GENERAL MEDICAL PROBLEM - General Chief Complaint: Cardiovascular Problem Stated Complaint: HEART FLUTTERING Time Seen by Provider: 03/15/19 19:07 Source of Information: Reports: Patient, RN, Other (Provider) History Limitations: Reports: No Limitations - History of Present Illness INITIAL COMMENTS - FREE TEXT/NARRATIVE: 38 year male who presents to the ER with complaints of chest pain x 9 hours and intermittently daily. He states he has been seen multiple times for complaints of the same. Admits he has Nitro but it has been missing for a couple of months and he could not get a refill. He has not been into the clinic for over a year for check. He states there is no triggers to his chest pain. Pain is 7/10 and constant with radiation into his left arm. He is currently on metoprolol and Lipitor which he admits he takes daily. He is also a smoking and states he smokes four cigarettes a day. He denies any chest injury, trauma or fall. Onset: Today Duration: Hour(s): (ten) Location: Reports: Chest Quality: Reports: Sharp (s) Severity: Moderate Improves with: Reports: None Worsens with: Reports: None Associated Symptoms: Reports: No Other Symptoms Treatments TAILOR'S AIDE: Reports: Aspirin (325) Left Anterior Chest Pain Score (Numeric/FACES): 7 - Related Data Allergies Allergy/AdvReac Type Severity Reaction Status Date / Time amoxicillin Allergy Other Verified 03/15/19 18:39 Home Meds: Home Meds Metoprolol Tartrate 25 mg PO BID 03/15/19 [History] atorvaSTATin [Lipitor] 20 mg PO DAILY 03/15/19 [History] Past Medical History HEENT History: Reports: Impaired Vision Other HEENT History: wears corrective lenses Cardiovascular History: Reports: Hypertension, Other (See Below) Other Cardiovascular History: Tachycardic episode about 6 years ago. Related it to caffiene. Had heart workup and angiogram. SVT. A-fib. States he also has a "leaky heart valve" Respiratory History: Reports: None Gastrointestinal History: Reports: GERD Genitourinary History: Reports: None Musculoskeletal History: Reports: None Neurological History: Reports: None Psychiatric History: Reports: None, Anxiety, Panic Attack Endocrine/Metabolic History: Reports: None Hematologic History: Reports: None Immunologic History: Reports: None Oncologic (Cancer) History: Reports: None Dermatologic History: Reports: Other (See Below) Other Dermatologic History: fatty tumor removed back of head - Infectious Disease History Infectious Disease History: Reports: Chicken Pox, Measles, Mumps - Past Surgical History Head Surgeries/Procedures: Reports: Other (See Below) Cardiovascular Surgical History: Reports: Other (See Below) Social & Family History - Family History Family Medical History: Noncontributory HEENT: Reports: None Cardiac: Reports: Other (See Below) - Tobacco Use Smoking Status *Q: Current Every Day Smoker Years of Tobacco use: 24 Packs/Tins Daily: 0.5 - Caffeine Use Caffeine Use: Reports: Coffee Other Caffeine Use: 2/day ED ROS GENERAL - Review of Systems Review Of Systems: See Below Constitutional: Reports: No Symptoms HEENT: Reports: No Symptoms Respiratory: Reports: No Symptoms Cardiovascular: Reports: Chest Pain Endocrine: Reports: No Symptoms GI/Abdominal: Reports: No Symptoms Musculoskeletal: Reports: No Symptoms Skin: Reports: No Symptoms Neurological: Reports: No Symptoms Psychiatric: Reports: No Symptoms Hematologic/Lymphatic: Reports: No Symptoms ED EXAM, GENERAL - Physical Exam Exam: See Below Exam Limited By: No Limitations General Appearance: Alert, WD/WN, No Apparent Distress Ears: Normal Canal, Hearing Grossly Normal, Normal TMs Throat/Mouth: Normal Inspection, Normal Lips, Normal Teeth, Normal Gums, Normal Oropharynx, Normal Voice, No Airway Compromise Neck: Normal Inspection, Supple, Non-Tender, Full Range of Motion Respiratory/Chest: No Respiratory Distress, Lungs Clear, Normal Breath Sounds, No Accessory Muscle Use, Chest Non-Tender Cardiovascular: Normal Peripheral Pulses, Regular Rate, Rhythm, No Edema, No Gallop, No JVD, No Murmur, No Rub Peripheral Pulses: 2+: Carotid (L), Carotid (R), Radial (L), Radial (R), Posterior Tibial (L), Posterior Tibial (R), Dorsalis Pedis (L), Dorsalis Pedis ( R) GI/Abdominal: Normal Bowel Sounds, Soft, Non-Tender, No Organomegaly, No Distention, No Abnormal Bruit, No Mass Extremities: Normal Inspection, Normal Range of Motion, Non-Tender, Normal Capillary Refill, No Pedal Edema Neurological: Alert, Oriented, CN II-XII Intact, Normal Cognition, Normal Gait, Normal Reflexes, No Motor/Sensory Deficits Psychiatric: Normal Affect, Normal Mood Skin Exam: Warm, Dry, Intact, Normal Color, No Rash Lymphatic: No Adenopathy EKG INTERPRETATION Rhythm: NSR Rate (Beats/Min): 69 [place]: Normal Course - Vital Signs Last Recorded V/S: Last Vital Signs Temp 95.5 F 03/15/19 18:30 Pulse 88 03/15/19 18:30 Resp 20 03/15/19 18:30 BP 133/62 03/15/19 18:53 Pulse Ox 96 03/15/19 18:30 - Orders/Labs/Meds Orders: Active Orders 24 hr Category Date Time Status EKG 12 Lead [EKG Documentation Completion] [] STAT Care 03/15/19 18:40 Inactive EKG 12 Lead [EKG Documentation Completion] [RC] URGENT Care 03/15/19 18:38 Active Peripheral IV Care [RC] . DIRECTED Care 03/15/19 18:40 Active Chest 1V Frontal [CR] Stat Exams 03/15/19 18:40 Taken DRUG SCREEN URINE BIORAD [URCHEM] Stat Lab 03/15/19 18:40 Ordered UA RFX WALDEMAR AND CULT IF INDIC [URIN] Stat Lab 03/15/19 18:40 Ordered Nitroglycerin [Nitrostat] Med 03/15/19 18:43 Active 0.4 mg SL Q5M PRN Sodium Chloride 0.9% [Saline Flush] Med 03/15/19 18:40 Active 10 ml FLUSH ASDIRECTED PRN Peripheral IV Insertion Adult [OM.PC] Stat Oth 03/15/19 18:40 Ordered Medication Orders Nitroglycerin (Nitrostat) 0.4 mg SL Q5M PRN PRN Reason: Chest Pain Last Admin: 03/15/19 18:53 Dose: 0.4 mg Sodium Chloride (Saline Flush) 10 ml FLUSH ASDIRECTED PRN PRN Reason: Keep Vein Open Last Admin: 03/15/19 18:55 Dose: 10 ml Labs: Laboratory Tests 03/15/19 03/15/19 03/15/19 Range/Units 18:40 18:40 18:40 WBC 6.0 (5.0-10.0) 10^3/uL RBC 4.83 (4.6-6.2) 10^6/uL Hgb 15.5 (14.0-18.0) g/dL Hct 44.1 (40.0-54.0) % MCV 91.3 (80-100) fL MCH 32.1 (27.0-34.0) pg MCHC 35.1 H (33.0-35.0) g/dL Plt Count 238 (150-450) 10^3/uL Neut % (Auto) 49.1 (42.2-75.2) % Lymph % (Auto) 31.9 (20.5-50.1) % [place] % (Auto) 11.2 H (2-8) % Eos % (Auto) 6.5 H (1.0-3.0) % Baso % (Auto) 1.3 H (0.0-1.0) % D-Dimer, Quantitative < 100 (0-400) ng/mL Sodium 140 (135-145) mmol/L Potassium 3.6 (3.6-5.0) mmol/L Chloride 108 (101-111) mmol/L Carbon Dioxide 24.0 (21.0-31.0) mmol/L Anion Gap 11.6 BUN 20 H (7-18) mg/dL Creatinine 1.0 (0.6-1.3) mg/dL Est Cr Clr Drug Dosing 100.16 mL/min Estimated GFR (MDRD) > 60 BUN/Creatinine Ratio 20.00 Glucose 111 H (74-105) mg/dL Calcium 8.5 (8.4-10.2) mg/dl Total Bilirubin 1.2 H (0.2-1.0) mg/dL AST 35 (10-42) IU/L ALT 55 (10-60) IU/L Alkaline Phosphatase 52 (42-121) IU/L Troponin I < 0.02 (0.00-0.02) ng/ml Total Protein 6.8 (6.7-8.2) g/dl Albumin 4.7 (3.2-5.5) g/dl Globulin 2.1 Albumin/Globulin Ratio 2.24 Lipase 47 (22-51) U/L Ethyl Alcohol < 5 mg/dL Meds: Medications Generic Name Dose Route Start Last Admin Trade Name Freq PRN Reason Stop Dose Admin Nitroglycerin 0.4 mg 03/15/19 18:43 03/15/19 18:53 Nitrostat SL 0.4 mg Q5M PRN Administration Chest Pain Sodium Chloride 10 ml 03/15/19 18:40 03/15/19 18:55 Saline Flush FLUSH 10 ml ASDIRECTED PRN Administration Keep Vein Open Discontinued Medications Generic Name Dose Route Start Last Admin Trade Name Tena PRN Reason Stop Dose Admin Aspirin 324 mg 03/15/19 18:43 03/15/19 18:51 Aspirin PO 03/15/19 18:44 324 mg ONETIME ONE Administration - Radiology Interpretation Free Text/Narrative:: PROCEDURE INFORMATION: Exam: XR Chest, 1 View Exam date and time: 03/15/2019 6:59 PM Age: 38 years old Clinical indication: Chest pain; Type not specified TECHNIQUE: Imaging protocol: XR of the chest Views: 1 view. COMPARISON: CR Chest 1V Frontal 02/07/2019 10:33 PM FINDINGS: Lungs: Unremarkable. No consolidation. Pleural space: Unremarkable. No pleural effusion. No pneumothorax. Heart/Mediastinum: Unremarkable. No cardiomegaly. Bones/joints: Unremarkable. IMPRESSION: No acute findings. Thank you for allowing us to participate in the care of your patient. Dictated and Authenticated by: Zeke Santiago DO 03/15/2019 7:15 PM Central Time ([place] & [place]) Departure - Departure Time of Disposition: 19:44 Disposition: Home, Self-Care 01 Condition: Fair Clinical Impression: Non-cardiac chest pain Instructions: Nonspecific Chest Pain, [id number] Forms: ED Department Discharge Additional Instructions: Follow up with PCP in the clinic for a cardiology referral. Strongly encouraged smoke cessation. Patient verbalized understanding. Sepsis Event Note - Evaluation Sepsis Screening Result: No Definite Risk - Focused Exam Vital Signs: Vital Signs Temp Pulse Resp BP BP Pulse Ox 03/15/19 18:53 133/62 03/15/19 18:30 95.5 F 88 20 133/76 96 Date Exam was Performed: 03/15/19 Time Exam was Performed: 19:30
[2019-03-15 19:08] LABS: ANION GAP 11.6; CHLORIDE,CL 108 mmol/L (101-111); SODIUM,NA 140 mmol/L (135-145)
[2019-03-15] MEDS ORDERED: Ketorolac 30 MG/ML SDV IVPUSH ONE (19:34)
== END 2019-03-15 20:05 | disposition home or self-care (01) ==
LOC: DL.ED 18:26
DX: R07.89 Other chest pain (principal); I10 Essential (primary) hypertension; F17.210 Nicotine dependence, cigarettes, uncomplicated; Z88.1 Allergy status to other antibiotic agents; Z79.899 Other long term (current) drug therapy
CPT/HCPCS: 36415; 71045; 80053; 80320; 83690; 84484; 85025; 85379; 93005; 96374; 99285; A9270; J1885; G0480

== ENCOUNTER 2020-02-11 22:08 | Emergency (ER) | payer MEDICAID, OTHER ==
[2020-02-11 22:45] VITALS: BP 172/89; PULSE 125
[2020-02-11 23:27] LABS: ANION GAP 15.6 mEq/L (7-13); CHLORIDE,CL 104 mmol/L (98-107); SODIUM,NA 140 mmol/L (136-145)
[2020-02-11] MEDS ORDERED: Iopamidol 612 MG/ML 100 ML Bottle IVPUSH ONE (23:42)
--- NOTE | 2020-02-12 00:31 | EDM.PDOC ---
ED HPI GENERAL MEDICAL PROBLEM - General Chief Complaint: Abdominal Pain Stated Complaint: SEVERE STOMACH PAINS Time Seen by Provider: 02/12/20 00:29 Source of Information: Reports: Patient History Limitations: Reports: No Limitations - History of Present Illness INITIAL COMMENTS - FREE TEXT/NARRATIVE: onset abd bloating today, been eating ok but less, no N/V but been having di arrhoea. Treatments PRESS CLEANER: Reports: Acetaminophen, Other (see below) Other Treatments PRESS CLEANER: Gas X Lower Abdomen Pain Score (Numeric/FACES): 9 - Related Data Allergies Allergy/AdvReac Type Severity Reaction Status Date / Time amoxicillin Allergy Other Verified 02/11/20 22:45 Home Meds: Home Meds Metoprolol Tartrate 25 mg PO BID 03/15/19 [History] atorvaSTATin [Lipitor] 20 mg PO DAILY 03/15/19 [History] metFORMIN [Glucophage] 500 mg PO BID 02/11/20 [History] Past Medical History HEENT History: Reports: Impaired Vision Other HEENT History: wears corrective lenses Cardiovascular History: Reports: Hypertension, Other (See Below) Other Cardiovascular History: Tachycardic episode about 6 years ago. Related it to caffiene. Had heart workup and angiogram. SVT. A-fib. States he also has a "leaky heart valve" Respiratory History: Reports: None Gastrointestinal History: Reports: GERD Genitourinary History: Reports: None Musculoskeletal History: Reports: None Neurological History: Reports: None Psychiatric History: Reports: None, Anxiety, Panic Attack Endocrine/Metabolic History: Reports: None Hematologic History: Reports: None Immunologic History: Reports: None Oncologic (Cancer) History: Reports: None Dermatologic History: Reports: Other (See Below) Other Dermatologic History: fatty tumor removed back of head - Infectious Disease History Infectious Disease History: Reports: Chicken Pox, Measles, Mumps - Past Surgical History Head Surgeries/Procedures: Reports: Other (See Below) HEENT Surgical History: Reports: Other (See Below) Other HEENT Surgeries/Procedures: surgical removal fatty tumor from posterior head Cardiovascular Surgical History: Reports: Other (See Below) Other Cardiovascular Surgeries/Procedures: angiogram Social & Family History - Family History Family Medical History: No Pertinent Family History HEENT: Reports: None Cardiac: Reports: Other (See Below) - Tobacco Use Tobacco Use Status *Q: Current Every Day Tobacco User Years of Tobacco use: 23 Packs/Tins Daily: 1 Second Hand Smoke Exposure: Yes - Caffeine Use Caffeine Use: Reports: Coffee Other Caffeine Use: 2/day - Recreational Drug Use Recreational Drug Use: No ED ROS GENERAL - Review of Systems Review Of Systems: Comprehensive ROS is negative, except as noted in HPI. ED EXAM, GI/ABD - Physical Exam Exam: See Below Exam Limited By: No Limitations General Appearance: Alert, WD/WN, Mild Distress, Other (discomfort). No: Active Emesis Ears: Hearing Grossly Normal Throat/Mouth: Normal Voice, No Airway Compromise Head: Atraumatic Neck: Non-Tender, Full Range of Motion Respiratory/Chest: No Respiratory Distress Cardiovascular: Regular Rate, Rhythm GI/Abdominal Exam: Soft, Distended, Tender, Other (periumb disomfort). No: Guarding, Rigid, Rebound (Male) Exam: Deferred Rectal (Males) Exam: Deferred Neurological: Alert, Oriented, Normal Cognition, Normal Gait, No Motor/Sensory D eficits Psychiatric: Normal Affect, Normal Mood Skin Exam: Warm, Dry, Normal Color Lymphatic: No Adenopathy Course - Vital Signs Last Recorded V/S: Last Vital Signs Temp 37.5 C 02/11/20 22:32 Pulse 125 H 02/11/20 22:32 Resp 19 02/11/20 22:32 BP 172/89 H 02/11/20 22:32 Pulse Ox 96 02/11/20 22:32 - Orders/Labs/Meds Orders: Active Orders 24 hr Category Date Time Status CULTURE BLOOD [BC] Stat Lab 02/12/20 01:35 Received metroNIDAZOLE/Normal Saline [Flagyl 500 MG in NS 100 ML Med 02/12/20 02:10 Ordered ] 500 mg Premix Bag 100 bag IV ONETIME Medication Orders Metronidazole 500 mg/ Premix 100 mls @ 100 mls/hr IV ONETIME ONE Stop: 02/12/20 03:09 Labs: Laboratory Tests 02/11/20 02/11/20 02/12/20 Range/Units 22:58 22:58 01:35 WBC 19.6 H (5.0-10.0) 10^3/uL RBC 5.08 (4.6-6.2) 10^6/uL Hgb 16.3 (14.0-18.0) g/dL Hct 46.4 (40.0-54.0) % MCV 91.3 (80-100) fL MCH 32.1 (27.0-34.0) pg MCHC 35.1 H (33.0-35.0) g/dL Plt Count 219 (150-450) 10^3/uL Neut % (Auto) 88.8 H (42.2-75.2) % Lymph % (Auto) 6.2 L (20.5-50.1) % [place] % (Auto) 3.5 (2-8) % Eos % (Auto) 1.0 (1.0-3.0) % Baso % (Auto) 0.5 (0.0-1.0) % Add Manual Diff Yes Neutrophils % (Manual) 84 H (42-75) % Lymphocytes % (Manual) 9 L (20-50) % Monocytes % (Manual) 6 (2-8) % Eosinophils % (Manual) 1 (1-3) % Sodium 140 (136-145) mmol/L Potassium 3.6 (3.5-5.1) mmol/L Chloride 104 (98-107) mmol/L Carbon Dioxide 24 (21-32) mmol/L Anion Gap 15.6 H (7-13) mEq/L BUN 20 H (7-18) mg/dL Creatinine 0.98 (0.70-1.30) mg/dL Est Cr Clr Drug Dosing 107.78 mL/min Estimated GFR (MDRD) > 60 BUN/Creatinine Ratio 20.4 (No establ ref range) Glucose 124 H (74-99) mg/dL Lactic Acid 0.6 (0.4-2.0) mmol/L Calcium 8.5 (8.5-10.1) mg/dL Total Bilirubin 1.1 H (0.2-1.0) mg/dL AST 12 L (15-37) U/L ALT 41 (16-63) U/L Alkaline Phosphatase 51 (46-116) U/L Total Protein 6.8 (6.4-8.2) g/dL Albumin 3.9 (3.4-5.0) g/dL Globulin 2.9 Albumin/Globulin Ratio 1.3 Amylase 309 H (25-115) U/L Lipase 2577 H (73-393) U/L Meds: Medications Generic Name Dose Route Start Last Admin Trade Name Freq PRN Reason Stop Dose Admin Metronidazole 500 mg/ Premix 100 mls @ 100 mls/hr 02/12/20 02:10 IV 02/12/20 03:09 ONETIME ONE Discontinued Medications Generic Name Dose Route Start Last Admin Trade Name Tena PRN Reason Stop Dose Admin Iopamidol 100 ml 02/11/20 23:42 02/11/20 23:54 Isovue-300 (61%) IVPUSH 02/11/20 23:43 100 ml ONETIME ONE Administration - Re-Assessments/Exams Free Text/Narrative Re-Assessment/Exam: 02/12/20 02:[address] Huynh @ who kindly accepted pt. Departure - Departure Time of Disposition: 02:17 Disposition: DC/Tfer to Acute Hospital 02 Condition: Good Clinical Impression: Diverticulitis - Discharge Information Forms: Interfacility Transfer [facility] Sepsis Event Note (ED) - Evaluation Sepsis Screening Result: No Definite Risk - Focused Exam Vital Signs: Vital Signs Temp Pulse Resp BP Pulse Ox 02/11/20 22:32 37.5 C 125 H 19 172/89 H 96 - My Orders Last 24 Hours: My Active Orders 02/12/20 01:35 CULTURE BLOOD [BC] Stat 02/12/20 02:10 metroNIDAZOLE/Normal Saline [Flagyl 500 MG in NS 100 ML] 500 mg Premix Bag 100 bag IV ONETIME - Assessment/Plan Last 24 Hours: My Active Orders 02/12/20 01:35 CULTURE BLOOD [BC] Stat 02/12/20 02:10 metroNIDAZOLE/Normal Saline [Flagyl 500 MG in NS 100 ML] 500 mg Premix Bag 100 bag IV ONETIME
--- NOTE | 2020-02-12 01:17 | CT ---
PROCEDURE INFORMATION: Exam: CT Abdomen And Pelvis With Contrast Exam date and time: 02/12/2020 12:28 AM Age: 39 years old Clinical indication: Other: Pain; Additional info: Pain bloating wbc 19,300 high amylase lipase TECHNIQUE: Imaging protocol: Computed tomography of the abdomen and pelvis with intravenous contrast. Radiation optimization: All CT scans at this facility use at least one of these dose optimization techniques: automated exposure control; mA and/or kV adjustment per patient size (includes targeted exams where dose is matched to clinical indication); or iterative reconstruction. Contrast material: [id number]; Contrast volume: 100 ml; Contrast route: INTRAVENOUS (IV); COMPARISON: No relevant prior studies available. FINDINGS: Liver: Mild fatty infiltration. No mass. Gallbladder and bile ducts: Normal. No calcified stones. No ductal dilation. Pancreas: No pancreatic edema or inflammatory changes. No acute pancreatitis evident. Spleen: Normal. No splenomegaly. Adrenal glands: Normal. No mass. Kidneys and ureters: Normal. No hydronephrosis. Stomach and bowel: Moderate edema of the right colon extending from the cecum to the hepatic flexure. There is also mild edema of the transverse colon and left colon. Findings are consistent with colitis. There is fatty stranding and edema of moderate severity surrounding the cecum and right colon. There is an inflamed diverticulum in the medial cecal region. See series 2, image 93. This suggests a component of acute diverticulitis with associated diffuse colitis. No acute small bowel edema or obstruction. Appendix: A normal appendix is visible which is non inflamed. See series 2, image 118. Intraperitoneal space: Minor free fluid in the right colic gutter and adjacent to the proximal sigmoid colon in the distal left colic gutter. Vasculature: Unremarkable. No abdominal aortic aneurysm. Lymph nodes: Unremarkable. No enlarged lymph nodes. Urinary bladder: Unremarkable as visualized. Reproductive: Unremarkable as visualized. Bones/joints: Unremarkable. No acute fracture. Soft tissues: Unremarkable. IMPRESSION: 1. Colitis from the cecum through the mid left colon. 2. Focal inflamed diverticulum in the region of the cecum suggesting focal diverticulitis. There is moderate surrounding fatty stranding and inflammation. Cecal edema is moderate to severe in nature. 3. Normal appendix. 4. No acute pancreatic edema. 5. Mild fatty liver change. 6. Minor free fluid in the colic gutters.
[2020-02-12] MEDS ORDERED: metroNIDAZOLE/Normal Saline 500 MG in Premix Bag 100 BAG IV ONE (02:10)
== END 2020-02-12 02:54 ==
LOC: DL.ED 22:08
DX: K57.32 Diverticulitis of large intestine without perforation or abscess without bleeding (principal); I10 Essential (primary) hypertension; F17.210 Nicotine dependence, cigarettes, uncomplicated; Z88.1 Allergy status to other antibiotic agents; Z79.899 Other long term (current) drug therapy
CPT/HCPCS: 36415; 74177; 80053; 82150; 83605; 83690; 85025; 87040; 96365; 99285; J3490; Q9967

== ENCOUNTER 2020-03-12 05:34 | Emergency (ER) | payer MEDICAID ==
[2020-03-12 05:52] VITALS: BP 143/90; PULSE 91
--- NOTE | 2020-03-12 06:02 | EDM.PDOC ---
ED HPI GENERAL MEDICAL PROBLEM - General Chief Complaint: General Stated Complaint: DOESNT FEEL RIGHT Time Seen by Provider: 03/12/20 05:58 Source of Information: Reports: Patient History Limitations: Reports: No Limitations - History of Present Illness INITIAL COMMENTS - FREE TEXT/NARRATIVE: states has head congestion and pos saida and employer sent him here for test. denies SOB/CP/F/C. Treatments CARPET SEWER: Reports: Acetaminophen - Related Data Allergies Allergy/AdvReac Type Severity Reaction Status Date / Time amoxicillin Allergy Other Verified 03/12/20 05:52 Home Meds: Home Meds Metoprolol Tartrate 25 mg PO BID 03/15/19 [History] atorvaSTATin [Lipitor] 20 mg PO DAILY 03/15/19 [History] metFORMIN [Glucophage] 500 mg PO BID 02/11/20 [History] Past Medical History HEENT History: Reports: Impaired Vision Other HEENT History: wears corrective lenses Cardiovascular History: Reports: Hypertension, Other (See Below) Other Cardiovascular History: Tachycardic episode about 6 years ago. Related it to caffiene. Had heart workup and angiogram. SVT. A-fib. States he also has a "leaky heart valve" Respiratory History: Reports: None Gastrointestinal History: Reports: GERD Genitourinary History: Reports: None Musculoskeletal History: Reports: None Neurological History: Reports: None Psychiatric History: Reports: None, Anxiety, Panic Attack Endocrine/Metabolic History: Reports: None Hematologic History: Reports: None Immunologic History: Reports: None Oncologic (Cancer) History: Reports: None Dermatologic History: Reports: Other (See Below) Other Dermatologic History: fatty tumor removed back of head - Infectious Disease History Infectious Disease History: Reports: Chicken Pox, Measles, Mumps - Past Surgical History Head Surgeries/Procedures: Reports: Other (See Below) HEENT Surgical History: Reports: Other (See Below) Other HEENT Surgeries/Procedures: surgical removal fatty tumor from posterior head Cardiovascular Surgical History: Reports: Other (See Below) Other Cardiovascular Surgeries/Procedures: angiogram Social & Family History - Family History Family Medical History: No Pertinent Family History HEENT: Reports: None Cardiac: Reports: Other (See Below) - Tobacco Use Tobacco Use Status *Q: Former Tobacco User Used Tobacco, but Quit: No Second Hand Smoke Exposure: No - Caffeine Use Caffeine Use: Reports: None Other Caffeine Use: 2/day - Recreational Drug Use Recreational Drug Use: No ED ROS GENERAL - Review of Systems Review Of Systems: Comprehensive ROS is negative, except as noted in HPI. ED EXAM, GENERAL - Physical Exam Exam: See Below Exam Limited By: No Limitations General Appearance: Alert, WD/WN, No Apparent Distress Ears: Hearing Grossly Normal Throat/Mouth: Normal Voice, No Airway Compromise Head: Atraumatic Neck: Non-Tender, Full Range of Motion Respiratory/Chest: No Respiratory Distress Cardiovascular: Regular Rate, Rhythm GI/Abdominal: Soft, Non-Tender (Male) Exam: Deferred Rectal (Males) Exam: Deferred Neurological: Alert, Oriented, Normal Cognition, Normal Gait, No Motor/Sensory Deficits Psychiatric: Normal Affect, Normal Mood Skin Exam: Warm, Dry, Normal Color Lymphatic: No Adenopathy Course - Vital Signs Last Recorded V/S: Last Vital Signs Temp 36.7 C 03/12/20 05:41 Pulse 91 03/12/20 05:41 Resp 19 03/12/20 05:41 BP 143/90 H 03/12/20 05:41 Pulse Ox 96 03/12/20 05:41 - Orders/Labs/Meds Orders: Active Orders 24 hr Category Date Time Status CORONAVIRUS COVID-19 MEREDITH [MOLEC] Routine Lab 03/12/20 05:56 Ordered Departure - Departure Time of Disposition: 05:59 Disposition: Home, Self-Care 01 Condition: Good Clinical Impression: URI (upper respiratory infection) Qualifiers: URI type: unspecified URI Qualified Code(s): J06.9 - Acute upper respiratory infection, unspecified - Discharge Information Instructions: COVID-19 Frequently Asked Questions Additional Instructions: 1) rest 2) self quarantine 3) follow up at clinic Sepsis Event Note (ED) - Evaluation Sepsis Screening Result: No Definite Risk - Focused Exam Vital Signs: Vital Signs Temp Pulse Resp BP Pulse Ox 03/12/20 05:41 36.7 C 91 19 143/90 H 96 - My Orders Last 24 Hours: My Active Orders 03/12/20 05:56 CORONAVIRUS COVID-19 MEREDITH [MOLEC] Routine - Assessment/Plan Last 24 Hours: My Active Orders 03/12/20 05:56 CORONAVIRUS COVID-19 MEREDITH [MOLEC] Routine
== END 2020-03-12 06:06 | disposition home or self-care (01) ==
LOC: DL.ED 05:34
DX: U07.1 COVID-19 (principal); J06.9 Acute upper respiratory infection, unspecified; I10 Essential (primary) hypertension; I48.91 Unspecified atrial fibrillation; Z87.891 Personal history of nicotine dependence; Z88.0 Allergy status to penicillin; Z79.899 Other long term (current) drug therapy
CPT/HCPCS: 99283; U0002

== ENCOUNTER 2020-05-08 18:09 | Emergency (ER) | payer MEDICAID ==
[2020-05-08 18:46] VITALS: BP 142/97; PULSE 117
--- NOTE | 2020-05-08 18:56 | EDM.PDOC ---
ED HPI GENERAL MEDICAL PROBLEM - General Chief Complaint: Skin Complaint Stated Complaint: LEFT THIGH, BOIL OR BITE COUPLE OF DAYS AGO Time Seen by Provider: 05/08/20 18:55 Source of Information: Reports: Patient, Family () History Limitations: Reports: No Limitations - History of Present Illness INITIAL COMMENTS - FREE TEXT/NARRATIVE: Patient presents to the ED via personal vehicle with for complaints of a bug bite to his right anterior thigh. The patient states he first noted a bump and erythema to this area last night, 05/07/20, prior to going to bed. The patient states he has noticed an increase in pain and redness to the area as the day has progressed. He has not used any medications for this problem. He denies fever, shaking chills, palpitations, loss of motor or sensory function to the area, loss of motor or sensory function to the distal extremity. Left Thigh Pain Score (Numeric/FACES): 6 - Related Data Allergies Allergy/AdvReac Type Severity Reaction Status Date / Time amoxicillin Allergy Other Verified 05/08/20 18:42 Home Meds: Home Meds Metoprolol Tartrate 25 mg PO BID 03/15/19 [History] atorvaSTATin [Lipitor] 20 mg PO DAILY 03/15/19 [History] metFORMIN [Glucophage] 500 mg PO BID 02/11/20 [History] Acetaminophen 325 - 650 mg PO Q8H PRN 04/02/20 [History] Nitroglycerin 0.4 mg SL ASDIRECTED PRN 04/02/20 [History] Sulfamethoxazole/Trimethoprim [Bactrim Ds Tablet] 1 each PO Q12H 7 Days #14 tablet 05/11/20 [Rx] oxyCODONE 5 mg PO Q8HR PRN 3 Days #9 tablet 05/11/20 [Rx] Past Medical History HEENT History: Reports: Impaired Vision Other HEENT History: wears corrective lenses Cardiovascular History: Reports: Afib, High Cholesterol, Hypertension, Other (See Below) Other Cardiovascular History: Tachycardic episode about 6 years ago. Related it to caffiene. Had heart workup and angiogram. SVT. A-fib. States he also has a "leaky heart valve" Respiratory History: Reports: None Gastrointestinal History: Reports: Diverticulosis, GERD, Other (See Below) Other Gastrointestinal History: HX OF DIVERTICULITIS Genitourinary History: Reports: Chronic Renal Insuffiency Musculoskeletal History: Reports: Back Pain, Chronic Neurological History: Reports: None Psychiatric History: Reports: None, Anxiety, Panic Attack Endocrine/Metabolic History: Reports: Diabetes, Type II, Hypothyroidism Hematologic History: Reports: None Immunologic History: Reports: None Oncologic (Cancer) History: Reports: None Dermatologic History: Reports: Other (See Below) Other Dermatologic History: fatty tumor removed back of head - Infectious Disease History Infectious Disease History: Reports: Chicken Pox, Measles, Mumps - Past Surgical History Head Surgeries/Procedures: Reports: Other (See Below) HEENT Surgical History: Reports: Other (See Below) Other HEENT Surgeries/Procedures: surgical removal fatty tumor from posterior head Cardiovascular Surgical History: Reports: Other (See Below) Other Cardiovascular Surgeries/Procedures: angiogram Neurological Surgical History: Reports: Other (See Below) Other Neurological Surgeries/Procedures: S/P SOFT TISSUE TUMOR EXCISION NECK Social & Family History - Family History Family Medical History: No Pertinent Family History HEENT: Reports: None Cardiac: Reports: Other (See Below) - Tobacco Use Tobacco Use Status *Q: Never Tobacco User - Caffeine Use Caffeine Use: Reports: None Other Caffeine Use: 2/day - Recreational Drug Use Recreational Drug Use: No ED ROS GENERAL - Review of Systems Review Of Systems: Comprehensive ROS is negative, except as noted in HPI. ED EXAM, SKIN/RASH Exam: See Below Exam Limited By: No Limitations General Appearance: Alert, No Apparent Distress Eye Exam: Bilateral Eye: EOMI, Normal Inspection, PERRL (4mm) Throat/Mouth: Normal Inspection, Normal Voice, No Airway Compromise Respiratory/Chest: No Respiratory Distress, Lungs Clear, Normal Breath Sounds, No Accessory Muscle Use, Chest Non-Tender Cardiovascular: Normal Peripheral Pulses, Regular Rate, Rhythm, No Edema, No Gallop, No JVD, No Murmur, No Rub Peripheral Pulses: 2+: Radial (L), Radial (R), Dorsalis Pedis (L), Dorsalis Pedis (R) Extremities: Normal Range of Motion, No Pedal Edema, Normal Capillary Refill, Leg Pain (To right anterior thigh), Increased Warmth (To right anterior thigh), Redness (To right anterior thigh). No: Joint Swelling, Limited Range of Motion Neurological: Alert, Oriented, CN II-XII Intact, Normal Cognition, Normal Gait, Normal Reflexes, No Motor/Sensory Deficits Psychiatric: Normal Affect, Normal Mood Skin: Warm, Dry, Intact, Normal Color, No Rash, Erythema (To right anterior thigh), Increased Warmth (To right anterior thigh), Wound/Incision (White papule noted to anterior thigh with erythema, warmth, and pain surrounding). No: Ecchymosis, Mottled, Pallor, Petechiae, Zoster-Like Rash Location, Skin: Lower Extremity, Right Characteristics: Papular, Erythematous Associated features: Warmth, Tenderness, Swelling, Inflammation. No: Induration, Scaling, Lymphangitis, Crusting, Weeping Course - Vital Signs Last Recorded V/S: Last Vital Signs Temp 97.2 F 05/08/20 18:43 Pulse 117 H 05/08/20 18:43 Resp 16 05/08/20 18:43 BP 142/97 H 05/08/20 18:43 Pulse Ox 100 05/08/20 18:43 - Re-Assessments/Exams Free Text/Narrative Re-Assessment/Exam: 05/08/20 No visual abscess to I&D. Will treat cellulitis with Clindamycin. Discussed supportive cares with patient and . Both verbalized understanding and agreement with the plan of care. Departure - Departure Time of Disposition: 18:49 Disposition: Home, Self-Care 01 Condition: Good Clinical Impression: Cellulitis Qualifiers: Site of cellulitis: extremity Site of cellulitis of extremity: lower extremity Laterality: left Qualified Code(s): L03.116 - Cellulitis of left lower limb - Discharge Information *PRESCRIPTION DRUG MONITORING PROGRAM REVIEWED*: Not Applicable *COPY OF PRESCRIPTION DRUG MONITORING REPORT IN PATIENT CHEN: Not Applicable Instructions: Cellulitis, Adult, [id number] Forms: ED Department Discharge Additional Instructions: Rx: Clindamycin 1.) Take all of your antibiotic until gone. 2.) You may take ibuprofen (Motrin/Advil) 400mg every six hours, as pain and swelling persists. You may also take acetaminophen (Tylenol) 650mg every six hours, as pain persists. You may stagger these medications so you are taking a dose every three hours. 3.) Apply cold compresses to anterior thigh, as swelling persists. Sepsis Event Note (ED) - Evaluation Sepsis Screening Result: No Definite Risk
== END 2020-05-08 19:02 | disposition home or self-care (01) ==
LOC: DL.ED 18:09
DX: L03.116 Cellulitis of left lower limb (principal); I48.91 Unspecified atrial fibrillation; E78.00 Pure hypercholesterolemia, unspecified; I12.9 Hypertensive chronic kidney disease with stage 1 through stage 4 chronic kidney disease, or unspecified chronic kidney disease; E11.22 Type 2 diabetes mellitus with diabetic chronic kidney disease; N18.9 Chronic kidney disease, unspecified; Z88.0 Allergy status to penicillin; Z79.899 Other long term (current) drug therapy
CPT/HCPCS: 99282; 99283

== ENCOUNTER 2020-05-09 22:05 | Observation (INO) | payer MEDICAID ==
[2020-05-09 23:36] LABS: ANION GAP 18.5 mEq/L (7-13); CHLORIDE,CL 102 mmol/L (98-107); SODIUM,NA 140 mmol/L (136-145)
[2020-05-09] MEDS ORDERED: Iopamidol 612 MG/ML 100 ML Bottle IVPUSH ONE (23:46)
--- NOTE | 2020-05-10 00:27 | CT ---
PROCEDURE INFORMATION: Exam: CT Left Lower Extremity With Contrast; Thigh Exam date and time: 05/09/2020 11:53 PM Age: 39 years old Clinical indication: Other: Cellulitis TECHNIQUE: Imaging protocol: CT of the Left lower extremity with intravenous contrast was performed. Exam focused on the thigh. Radiation optimization: All CT scans at this facility use at least one of these dose optimization techniques: automated exposure control; mA and/or kV adjustment per patient size (includes targeted exams where dose is matched to clinical indication); or iterative reconstruction. Contrast material: [id number]; Contrast volume: 100 ml; Contrast route: INTRAVENOUS (IV); COMPARISON: No relevant prior studies available. FINDINGS: Bones/joints: no evidence for osteomyelitis. Soft tissues: Diffuse subcutaneous edema involving the left thigh extending from the knee joint proximally to the hip joint consistent with cellulitis. This is greatest laterally. No discrete fluid collection or abscess. no evidence for deep infection or intramuscular abscess. No evidence for necrotizing infection. IMPRESSION: 1. Diffuse subcutaneous edema involving the left thigh extending from the knee joint proximally to the hip joint consistent with cellulitis. This is greatest laterally. No discrete fluid collection or abscess. 2. No evidence for deep infection or intramuscular abscess. 3. No evidence for necrotizing infection. 4. No evidence for osteomyelitis.
[2020-05-10] MEDS ORDERED: Acetaminophen 325 MG Tab PO PRN (00:35)
[2020-05-10] MEDS ORDERED: Ondansetron 4 MG/2 ML SDV IVPUSH PRN (00:35)
[2020-05-10] MEDS ORDERED: Nitroglycerin 0.4 MG Tab.SL SL PRN (00:40)
[2020-05-10] MEDS ORDERED: 50% Dextrose in Water 50 ML Syringe IV PRN ×2 (00:41→00:46)
[2020-05-10] MEDS ORDERED: Glucagon,Human Recombinant 1 MG Vial IM PRN ×2 (00:41→00:46)
[2020-05-10] MEDS ORDERED: Lactated Ringers 1,000 ML IV SCH (00:45)
--- NOTE | 2020-05-10 00:45 | PCM.HP ---
H&P History of Present Illness - General Date of Service: 05/10/20 Admit Problem/Dx: Admission Diagnosis/Problem Admission Diagnosis/Problem Cellulitis Source of Information: Patient History Limitations: Reports: No Limitations - History of Present Illness Initial Comments - Free Text/Narative: Jostin is 39-year-old male with history of diabetes on Metformin and insulin, obesity who presented to the ED for evaluation of increasing tender swelling and redness to the left thigh. Patient was seen in the ED a day prior for above. He received vancomycin and was discharged on clindamycin. He came back to the ED because of increasing pain and redness. He reports chills without fever. No nausea or vomiting. Denies trauma. In the ED vitals unremarkable. WBC 11.2. CT of the left leg consistent with cellulitis. No fluid collection. ED provider spoke with small pus from the swelling. He received IV vancomycin. Admission was requested for further management Onset of Symptoms: Reports: Gradual Duration of Symptoms: Reports: Day(s): Location: Reports: Lower Extremity, Left Quality: Reports: Stabbing Severity: Severe Improves with: Reports: None Worsens with: Reports: None Associated Symptoms: Reports: Fever/Chills Left Lower Anterior Thigh Pain Score (Numeric/FACES): 10 - Related Data Allergies/Adverse Reactions: Allergies Allergy/AdvReac Type Severity Reaction Status Date / Time amoxicillin Allergy Other Verified 05/08/20 18:42 Home Medications: Home Meds Metoprolol Tartrate 25 mg PO BID 03/15/19 [History] atorvaSTATin [Lipitor] 20 mg PO DAILY 03/15/19 [History] metFORMIN [Glucophage] 500 mg PO BID 02/11/20 [History] Acetaminophen 325 - 650 mg PO Q8H PRN 04/02/20 [History] Nitroglycerin 0.4 mg SL ASDIRECTED PRN 04/02/20 [History] Past Medical History HEENT History: Reports: Impaired Vision Other HEENT History: wears corrective lenses Cardiovascular History: Reports: Afib, High Cholesterol, Hypertension, Other (See Below) Other Cardiovascular History: Tachycardic episode about 6 years ago. Related it to caffiene. Had heart workup and angiogram. SVT. A-fib. States he also has a "leaky heart valve" Respiratory History: Reports: None Gastrointestinal History: Reports: Diverticulosis, GERD, Other (See Below) Other Gastrointestinal History: HX OF DIVERTICULITIS Genitourinary History: Reports: Chronic Renal Insuffiency Musculoskeletal History: Reports: Back Pain, Chronic Neurological History: Reports: None Psychiatric History: Reports: None, Anxiety, Panic Attack Endocrine/Metabolic History: Reports: Diabetes, Type II, Hypothyroidism Hematologic History: Reports: None Immunologic History: Reports: None Oncologic (Cancer) History: Reports: None Dermatologic History: Reports: Other (See Below) Other Dermatologic History: fatty tumor removed back of head - Infectious Disease History Infectious Disease History: Reports: Chicken Pox, Measles, Mumps - Past Surgical History Head Surgeries/Procedures: Reports: Other (See Below) HEENT Surgical History: Reports: Other (See Below) Other HEENT Surgeries/Procedures: surgical removal fatty tumor from posterior head Cardiovascular Surgical History: Reports: Other (See Below) Other Cardiovascular Surgeries/Procedures: angiogram Neurological Surgical History: Reports: Other (See Below) Other Neurological Surgeries/Procedures: S/P SOFT TISSUE TUMOR EXCISION NECK Social & Family History - Family History Family Medical History: No Pertinent Family History HEENT: Reports: None Cardiac: Reports: Other (See Below) - Tobacco Use Second Hand Smoke Exposure: No - Caffeine Use Caffeine Use: Reports: Soda Other Caffeine Use: 2/day - Recreational Drug Use Recreational Drug Use: No H&P Review of Systems - Review of Systems: Review Of Systems: See Below (As per HPI) General: Reports: Chills HEENT: Reports: No Symptoms Pulmonary: Reports: No Symptoms Cardiovascular: Reports: No Symptoms Gastrointestinal: Reports: No Symptoms Genitourinary: Reports: No Symptoms Musculoskeletal: Reports: No Symptoms Skin: Reports: No Symptoms Psychiatric: Reports: No Symptoms Neurological: Reports: No Symptoms Hematologic/Lymphatic: Reports: No Symptoms Immunologic: Reports: No Symptoms Exam - Exam Exam: See Below (As per HPI) - Vital Signs Vital Signs: Last Vital Signs Temp 99.3 F 05/09/20 22:51 Pulse 115 H 05/09/20 22:51 Resp 16 05/09/20 22:51 BP 158/88 H 05/09/20 22:51 Pulse Ox 96 05/09/20 22:51 Weight: 260 lb - Exam General: Alert, Oriented, 4 HEENT: PERRLA, Hearing Intact, Mucosa Moist & [place], Nares Patent, Normal Nasal Septum, Posterior Pharynx Clear, Conjunctiva Clear, EOMI, EACs Clear, TMs Clear Neck: Supple, Trachea Midline, 2 Lungs: Clear to Auscultation, Normal Respiratory Effort Cardiovascular: Regular Rate, Regular Rhythm GI/Abdominal Exam: Normal Bowel Sounds, Soft, Non-Tender, No Organomegaly, No Distention, No Abnormal Bruit, No Mass, Pelvis Stable (Male) Exam: No Hernia, Normal Inspection, Normal Prostate, Circumcised Rectal (Males) Exam: Normal Exam, Normal Rectal Tone, Prostate Normal Back Exam: Normal Inspection, Full Range of Motion, NT Extremities: Normal Range of Motion, Non-Tender, No Pedal Edema, Normal Capillary Refill, Other (Small area of tender swelling and redness to the lateral aspect of left) Skin: Warm, Dry, Intact Neurological: Cranial Nerves Intact, Reflexes Equal Bilateral Neuro Extensive - Mental Status: Alert, Oriented x3, Normal Mood/Affect, Normal Cognition Neuro Extensive - Motor, Sensory, Reflexes: CN II-XII Intact, Normal Gait, Normal Reflexes Psychiatric: Alert, Normal Affect, Normal Mood - Patient Data Lab Results Last 24 hrs: Laboratory Results - last 24 hr 05/09/20 05/09/20 05/09/20 Range/Units 23:10 23:10 23:10 WBC 11.9 H (5.0-10.0) 10^3/uL RBC 4.70 (4.6-6.2) 10^6/uL Hgb 15.2 (14.0-18.0) g/dL Hct 42.8 (40.0-54.0) % MCV 91.1 (80-100) fL MCH 32.3 (27.0-34.0) pg MCHC 35.5 H (33.0-35.0) g/dL Plt Count 236 (150-450) 10^3/uL Neut % (Auto) 75.4 H (42.2-75.2) % Lymph % (Auto) 14.5 L (20.5-50.1) % [place] % (Auto) 5.2 (2-8) % Eos % (Auto) 4.1 H (1.0-3.0) % Baso % (Auto) 0.8 (0.0-1.0) % Sodium 140 (136-145) mmol/L Potassium 3.5 (3.5-5.1) mmol/L Chloride 102 (98-107) mmol/L Carbon Dioxide 23 (21-32) mmol/L Anion Gap 18.5 H (7-13) mEq/L BUN 20 H (7-18) mg/dL Creatinine 0.94 (0.70-1.30) mg/dL Est Cr Clr Drug Dosing 102.07 mL/min Estimated GFR (MDRD) > 60 BUN/Creatinine Ratio 21.3 (No establ ref range) Glucose 218 H (74-99) mg/dL Lactic Acid 1.3 (0.4-2.0) mmol/L Calcium 7.6 L (8.5-10.1) mg/dL Total Bilirubin 0.9 (0.2-1.0) mg/dL Alkaline Phosphatase 80 (46-116) U/L Albumin 3.8 (3.4-5.0) g/dL Result Diagrams: 05/10/20 06:12 05/09/20 23:10 - Problem List (1) Obesity SNOMED Code(s): 925627315, 461839357 ICD Code: E66.9 - OBESITY, UNSPECIFIED Status: Acute Current Visit: Yes Problem List Initiated/Reviewed/Updated: Yes Orders Last 24hrs: Active Orders 24 hr Category Date Time Status Admission Diagnosis [ADT] Stat ADT 05/09/20 23:37 Ordered Admission Status [Patient Status] [ADT] Routine ADT 05/09/20 23:37 Active Ambulate [RC] ASDIRECTED Care 05/10/20 00:35 Ordered Intake and Output [RC] QSHIFT Care 05/10/20 00:36 Ordered Notify Provider Vital Signs [RC] ASDIRECTED Care 05/10/20 00:36 Ordered Oxygen Therapy [RC] PRN Care 05/10/20 00:35 Ordered VTE/DVT Education [RC] PER UNIT ROUTINE Care 05/10/20 00:35 Ordered Vital Signs [RC] Q4H Care 05/10/20 00:35 Ordered OT Evaluation and Treatment [CONS] Routine Cons 05/10/20 00:35 Ordered PT Evaluation and Treatment [CONS] Routine Cons 05/10/20 00:35 Ordered Regular Diet [DIET] Diet 05/10/20 Breakfast Ordered CBC W/O DIFF,HEMOGRAM [HEME] AM Lab 05/10/20 05:11 Ordered COMPREHENSIVE METABOLIC PN,CMP [CHEM] Stat Lab 05/09/20 23:10 Results CORONAVIRUS COVID-19 MEREDITH [MOLEC] Stat Lab 05/10/20 00:30 Ordered CULTURE BLOOD [BC] Stat Lab 05/09/20 23:10 Received CULTURE BLOOD [BC] Stat Lab 05/09/20 23:31 Received CULTURE WOUND [RM] Stat Lab 05/09/20 23:01 Received Acetaminophen [TylenoL] Med 05/10/20 00:35 Ordered 650 mg PO Q4H PRN Dextrose 50% in Water Med 05/10/20 00:41 Ordered 50 ml IV ASDIRECTED PRN Glucagon,Human Recombinant [GlucaGen] Med 05/10/20 00:41 Ordered 1 mg IM ASDIRECTED PRN Heparin Sodium Med 05/10/20 09:00 Ordered 5,000 units SUBCUT Q12HR Insulin Lispro [HumaLOG] Med 05/10/20 08:00 Ordered See Protocol SUBCUT WITHMEALSANDBED Lactated Ringers @ 125 MLS/HR(1000ml) Med 05/10/20 00:45 Ordered Lactated Ringers [Ringers, Lactated] 1,000 ml IV ASDIRECTED Metoprolol Tartrate [Lopressor] Med 05/10/20 09:00 Ordered 25 mg PO BID Nitroglycerin [Nitrostat] Med 05/10/20 00:40 Ordered 0.4 mg SL ASDIRECTED PRN Ondansetron [Zofran] Med 05/10/20 00:35 Ordered 4 mg IVPUSH Q6H PRN Vancomycin 1,500 mg Med 05/09/20 23:27 Active Sodium Chloride 0.9% [Normal Saline] 500 ml IV ONETIME atorvaSTATin [Lipitor] Med 05/10/20 09:00 Ordered 20 mg PO DAILY Blood Culture x2 Reflex Set [OM.PC] Stat Oth 05/09/20 23:09 Ordered Resuscitation Status Routine Resus Stat 05/10/20 00:35 Ordered Medication Orders Acetaminophen (Tylenol) 650 mg PO Q4H PRN PRN Reason: Pain (Mild 1-3)/fever Atorvastatin Calcium (Lipitor) 20 mg PO DAILY BRINDA Heparin Sodium (Porcine) (Heparin Sodium) 5,000 units SUBCUT Q12HR BRINDA Vancomycin HCl 1,500 mg/ (Sodium Chloride) 500 mls @ 333.333 mls/hr IV ONETIME ONE Stop: 05/10/20 00:56 Last Admin: 05/09/20 23:42 Dose: 333.333 mls/hr Documented by: YOLY Lactated Ringer's (Ringers, Lactated) 1,000 mls @ 125 mls/hr IV ASDIRECTED BRINDA Metoprolol Tartrate (Lopressor) 25 mg PO BID BRINDA Nitroglycerin (Nitrostat) 0.4 mg SL ASDIRECTED PRN PRN Reason: ANGINA Ondansetron HCl (Zofran) 4 mg IVPUSH Q6H PRN PRN Reason: Nausea/Vomiting Assessment/Plan Comment:: #Left thigh cellulitis Patient presented to the ED for evaluation of worsening left pain, swelling, redness Patient failed outpatient antibiotic therapy CT left thigh consistent to cellulitis Admit to medical floor IVF IV vanco Follow-up on wound culture and blood culture Pain control with oxycodone and fentanyl as needed Physical therapy #Type 2 diabetes Suboptimally controlled Patient on Metformin. Hold for now Sliding scale insulin Accu-Cheks Hypoglycemic protocol A1c #Obesity Weight loss advised #Diet Consistent carb diet #CODE STATUS Full
[2020-05-10] MEDS ORDERED: diphenhydrAMINE 25 MG Tab PO PRN (01:05)
[2020-05-10] MEDS: fentaNYL 100 MCG/2 ML SDV IVPUSH PRN ×3 (01:19→09:14)
[2020-05-10] MEDS: oxyCODONE 5 MG Tab PO PRN ×3 (04:13→20:31)
--- NOTE | 2020-05-10 05:37 | EDM.PDOC ---
ED HPI GENERAL MEDICAL PROBLEM - General Chief Complaint: Lower Extremity Injury/Pain Stated Complaint: LEFT LEG THIGH BOIL, MORE PAIN Time Seen by Provider: 05/09/20 22:50 Source of Information: Reports: Patient History Limitations: Reports: No Limitations - History of Present Illness INITIAL COMMENTS - FREE TEXT/NARRATIVE: ED with c/o increased pain redness and swelling of thigh. Patient seen in ED day prior given vanco and clindamycin. Chills no known fever. Tylenol not helpful without Left Lower Anterior Thigh Pain Score (Numeric/FACES): 10 - Related Data Allergies Allergy/AdvReac Type Severity Reaction Status Date / Time amoxicillin Allergy Other Verified 05/08/20 18:42 Home Meds: Home Meds Metoprolol Tartrate 25 mg PO BID 03/15/19 [History] atorvaSTATin [Lipitor] 20 mg PO DAILY 03/15/19 [History] metFORMIN [Glucophage] 500 mg PO BID 02/11/20 [History] Acetaminophen 325 - 650 mg PO Q8H PRN 04/02/20 [History] Nitroglycerin 0.4 mg SL ASDIRECTED PRN 04/02/20 [History] Past Medical History HEENT History: Reports: Impaired Vision Other HEENT History: wears corrective lenses Cardiovascular History: Reports: Afib, High Cholesterol, Hypertension, Other (See Below) Other Cardiovascular History: Tachycardic episode about 6 years ago. Related it to caffiene. Had heart workup and angiogram. SVT. A-fib. States he also has a "leaky heart valve" Respiratory History: Reports: None Gastrointestinal History: Reports: Diverticulosis, GERD, Other (See Below) Other Gastrointestinal History: HX OF DIVERTICULITIS Genitourinary History: Reports: Chronic Renal Insuffiency Musculoskeletal History: Reports: Back Pain, Chronic Neurological History: Reports: None Psychiatric History: Reports: None, Anxiety, Panic Attack Endocrine/Metabolic History: Reports: Diabetes, Type II, Hypothyroidism Hematologic History: Reports: None Immunologic History: Reports: None Oncologic (Cancer) History: Reports: None Dermatologic History: Reports: Other (See Below) Other Dermatologic History: fatty tumor removed back of head - Infectious Disease History Infectious Disease History: Reports: Chicken Pox, Measles, Mumps - Past Surgical History Head Surgeries/Procedures: Reports: Other (See Below) HEENT Surgical History: Reports: Other (See Below) Other HEENT Surgeries/Procedures: surgical removal fatty tumor from posterior head Cardiovascular Surgical History: Reports: Other (See Below) Other Cardiovascular Surgeries/Procedures: angiogram Neurological Surgical History: Reports: Other (See Below) Other Neurological Surgeries/Procedures: S/P SOFT TISSUE TUMOR EXCISION NECK Social & Family History - Family History Family Medical History: No Pertinent Family History HEENT: Reports: None Cardiac: Reports: Other (See Below) - Tobacco Use Tobacco Use Status *Q: Never Tobacco User Second Hand Smoke Exposure: No - Caffeine Use Caffeine Use: Reports: Soda Other Caffeine Use: 2/day - Recreational Drug Use Recreational Drug Use: No ED ROS GENERAL - Review of Systems Review Of Systems: Comprehensive ROS is negative, except as noted in HPI. ED EXAM, GENERAL - Physical Exam Exam: See Below Exam Limited By: No Limitations General Appearance: Alert, Mild Distress Ears: Normal External Exam, Hearing Grossly Normal Nose: Normal Inspection Throat/Mouth: Normal Inspection Head: Atraumatic, Normocephalic Neck: Normal Inspection, Full Range of Motion Respiratory/Chest: No Respiratory Distress, Lungs Clear, Normal Breath Sounds Cardiovascular: Regular Rate, Rhythm GI/Abdominal: Normal Bowel Sounds, Soft, Non-Tender Extremities: Other (left anter/ lateral thigh red indurated, centrail 2mm punctate center. initial marking during triage . increased area milder redness and induration at time of exam. Tender with light palpation. ) Neurological: Alert, Oriented, Normal Cognition, No Motor/Sensory Deficits Skin Exam: Warm, Dry, Erythema, Increased Warmth Course - Vital Signs Last Recorded V/S: Last Vital Signs Temp 97.8 F 05/10/20 00:35 Pulse 93 05/10/20 00:35 Resp 16 05/10/20 00:35 BP 149/76 H 05/10/20 00:35 Pulse Ox 97 05/10/20 00:35 - Orders/Labs/Meds Orders: Active Orders 24 hr Category Date Time Status CULTURE BLOOD [BC] Stat Lab 05/09/20 23:10 Received CULTURE BLOOD [BC] Stat Lab 05/09/20 23:31 Received CULTURE WOUND [RM] Stat Lab 05/09/20 23:01 Received Blood Culture x2 Reflex Set [OM.PC] Stat Oth 05/09/20 23:09 Ordered Medication Orders Acetaminophen (Tylenol) 650 mg PO Q4H PRN PRN Reason: Pain (Mild 1-3)/fever Atorvastatin Calcium (Lipitor) 20 mg PO DAILY [facility] Dextrose/Water (Dextrose 50% In Water) 50 ml IV ASDIRECTED PRN PRN Reason: Hypoglycemia Diphenhydramine HCl (Benadryl) 25 mg PO QID PRN PRN Reason: Itching Last Admin: 05/10/20 01:18 Dose: 25 mg Documented by: ERICA Fentanyl (Sublimaze) 50 mcg IVPUSH Q2H PRN PRN Reason: Pain (severe 7-10) Last Admin: 05/10/20 04:15 Dose: 50 mcg Documented by: Admin: 05/10/20 01:19 Dose: 50 mcg Documented by: ERICA Glucagon (Glucagen) 1 mg IM ASDIRECTED PRN PRN Reason: Hypoglycemia Heparin Sodium (Porcine) (Heparin Sodium) 5,000 units SUBCUT Q12HR [facility] Lactated Ringer's (Ringers, Lactated) 1,000 mls @ 125 mls/hr IV ASDIRECTED BRINDA Last Admin: 05/10/20 01:26 Dose: 125 mls/hr Documented by: ERICA Insulin Glargine (Lantus) 5 unit SUBCUT BEDTIME [facility] Insulin Human Lispro (Humalog) 0 unit SUBCUT WITHMEALSANDBED [facility]; Protocol Metoprolol Tartrate (Lopressor) 25 mg PO BID [facility] Nitroglycerin (Nitrostat) 0.4 mg SL ASDIRECTED PRN PRN Reason: ANGINA Ondansetron HCl (Zofran) 4 mg IVPUSH Q6H PRN PRN Reason: Nausea/Vomiting Oxycodone HCl (Oxycodone) 5 mg PO Q6H PRN PRN Reason: Pain Last Admin: 05/10/20 04:13 Dose: 5 mg Documented by: ERICA Labs: Laboratory Tests 05/09/20 05/09/20 05/09/20 Range/Units 23:10 23:10 23:10 WBC 11.9 H (5.0-10.0) 10^3/uL RBC 4.70 (4.6-6.2) 10^6/uL Hgb 15.2 (14.0-18.0) g/dL Hct 42.8 (40.0-54.0) % MCV 91.1 (80-100) fL MCH 32.3 (27.0-34.0) pg MCHC 35.5 H (33.0-35.0) g/dL Plt Count 236 (150-450) 10^3/uL Neut % (Auto) 75.4 H (42.2-75.2) % Lymph % (Auto) 14.5 L (20.5-50.1) % [place] % (Auto) 5.2 (2-8) % Eos % (Auto) 4.1 H (1.0-3.0) % Baso % (Auto) 0.8 (0.0-1.0) % Sodium 140 (136-145) mmol/L Potassium 3.5 (3.5-5.1) mmol/L Chloride 102 (98-107) mmol/L Carbon Dioxide 23 (21-32) mmol/L Anion Gap 18.5 H (7-13) mEq/L BUN 20 H (7-18) mg/dL Creatinine 0.94 (0.70-1.30) mg/dL Est Cr Clr Drug Dosing 102.07 mL/min Estimated GFR (MDRD) > 60 BUN/Creatinine Ratio 21.3 (No establ ref range) Glucose 218 H (74-99) mg/dL Lactic Acid 1.3 (0.4-2.0) mmol/L Calcium 7.6 L (8.5-10.1) mg/dL Total Bilirubin 0.9 (0.2-1.0) mg/dL AST 29 (15-37) U/L ALT 65 H (16-63) U/L Alkaline Phosphatase 80 (46-116) U/L Total Protein 6.4 (6.4-8.2) g/dL Albumin 3.8 (3.4-5.0) g/dL Globulin 2.6 Albumin/Globulin Ratio 1.46 Meds: Medications Generic Name Dose Route Start Last Admin Trade Name Freq PRN Reason Stop Dose Admin Acetaminophen 650 mg 05/10/20 00:35 Tylenol PO Q4H PRN Pain (Mild 1-3)/fever Atorvastatin Calcium 20 mg 05/10/20 09:00 Lipitor PO DAILY BRINDA Dextrose/Water 50 ml 05/10/20 00:46 Dextrose 50% In Water IV ASDIRECTED PRN Hypoglycemia Diphenhydramine HCl 25 mg 05/10/20 01:05 05/10/20 01:18 Benadryl PO 25 mg QID PRN Administration Itching Fentanyl 50 mcg 05/10/20 00:51 05/10/20 04:15 Sublimaze IVPUSH 50 mcg Q2H PRN Administration Pain (severe 7-10) Glucagon 1 mg 05/10/20 00:46 Glucagen IM ASDIRECTED PRN Hypoglycemia Heparin Sodium (Porcine) 5,000 units 05/10/20 09:00 Heparin Sodium SUBCUT Q12HR BRINDA Lactated Ringer's 1,000 mls @ 125 mls/hr 05/10/20 00:45 05/10/20 01:26 Ringers, Lactated IV 125 mls/hr ASDIRECTED BRINDA Administration Insulin Glargine 5 unit 05/10/20 21:00 Lantus SUBCUT BEDTIME BRINDA Insulin Human Lispro 0 unit 05/10/20 08:00 Humalog SUBCUT WITHMEALSANDBED [facility] Protocol Metoprolol Tartrate 25 mg 05/10/20 09:00 Lopressor PO BID [facility] Nitroglycerin 0.4 mg 05/10/20 00:40 Nitrostat SL ASDIRECTED PRN ANGINA Ondansetron HCl 4 mg 05/10/20 00:35 Zofran IVPUSH Q6H PRN Nausea/Vomiting Oxycodone HCl 5 mg 05/10/20 00:52 05/10/20 04:13 Oxycodone PO 5 mg Q6H PRN Administration Pain Discontinued Medications Generic Name Dose Route Start Last Admin Trade Name Freq PRN Reason Stop Dose Admin Dextrose/Water 50 ml 05/10/20 00:41 Dextrose 50% In Water IV ASDIRECTED PRN Hypoglycemia Glucagon 1 mg 05/10/20 00:41 Glucagen IM ASDIRECTED PRN Hypoglycemia Vancomycin HCl 1,500 mg/ 500 mls @ 333.333 mls/hr 05/09/20 23:27 05/09/20 23:42 Sodium Chloride IV 05/10/20 00:56 333.333 mls/hr ONETIME ONE Administration Iopamidol 100 ml 05/09/20 23:46 05/10/20 00:13 Isovue-300 (61%) IVPUSH 05/09/20 23:47 100 ml ONETIME ONE Administration - Re-Assessments/Exams Free Text/Narrative Re-Assessment/Exam: Central lesion cleansed with betadine, Lanced 18gu needle scant thick reddish brown purulent drainage, culture obtained. TC Dr Barrientos, agree for admission for cellulitis left thigh, with worsening past 24 hours despite curent home oral therapy. Departure - Departure Time of Disposition: 23:45 Disposition: Refer to Observation Condition: Good Clinical Impression: Cellulitis and abscess of left leg Diabetes Qualifiers: Diabetes mellitus type: type 2 Diabetes mellitus long term acute care registered nurse insulin use: without senior living use Diabetes mellitus complication status: with hyperglycemia Qualified Code(s): E11.65 - Type 2 diabetes mellitus with hyperglycemia - Discharge Information Sepsis Event Note (ED) - Evaluation Sepsis Screening Result: No Definite Risk - Focused Exam Vital Signs: Vital Signs Temp Pulse Resp BP Pulse Ox 05/09/20 22:51 99.3 F 115 H 16 158/88 H 96 - My Orders Last 24 Hours: My Active Orders 05/09/20 23:01 CULTURE WOUND [RM] Stat 05/09/20 23:09 Blood Culture x2 Reflex Set [OM.PC] Stat 05/09/20 23:10 CULTURE BLOOD [BC] Stat 05/09/20 23:31 CULTURE BLOOD [BC] Stat - Assessment/Plan Last 24 Hours: My Active Orders 05/09/20 23:01 CULTURE WOUND [RM] Stat 05/09/20 23:09 Blood Culture x2 Reflex Set [OM.PC] Stat 05/09/20 23:10 CULTURE BLOOD [BC] Stat 05/09/20 23:31 CULTURE BLOOD [BC] Stat
[2020-05-10] MEDS: Insulin Lispro 100 Units/ML 3 ML Vial SUBCUT SCH ×4 (09:13→20:28)
[2020-05-10] MEDS: Metoprolol Tartrate 25 MG Tab PO SCH ×2 (09:13→20:31)
[2020-05-10] MEDS: Heparin Sodium 5,000 Units/ML Vial SUBCUT SCH ×2 (09:14→20:30)
[2020-05-10] MEDS: atorvaSTATin 20 MG Tab PO SCH (09:14)
[2020-05-10] MEDS ORDERED: Sodium Chloride 0.9% 10 ML Syringe FLUSH PRN (10:54)
[2020-05-10] MEDS ORDERED: Insulin Glarg,Human.Rec.Analog 100 Unit/ML SUBCUT SCH (21:00)
[2020-05-11] MEDS: oxyCODONE 5 MG Tab PO PRN (04:35)
[2020-05-11 08:06] VITALS: BP 127/83; PULSE 84
[2020-05-11] MEDS: Insulin Lispro 100 Units/ML 3 ML Vial SUBCUT SCH (08:44)
[2020-05-11] MEDS: Metoprolol Tartrate 25 MG Tab PO SCH (08:45)
[2020-05-11] MEDS: Heparin Sodium 5,000 Units/ML Vial SUBCUT SCH (08:45)
[2020-05-11] MEDS: atorvaSTATin 20 MG Tab PO SCH (08:46)
--- NOTE | 2020-05-11 10:14 | PCM.DCSUM1 ---
Discharge Summary - Hospital Course Free Text/Narrative:: Jostin is 39-year-old male with history of diabetes on Metformin and insulin, obesity who presented to the ED for evaluation of increasing tender swelling and redness to the left thigh. Patient was seen in the ED a day prior for above. He received vancomycin and was discharged on clindamycin. He came back to the ED because of increasing pain and redness. CT of the left leg consistent with cellulitis. No fluid collection. Vascular ultrasound of left lower extremity was negative for DVT. He was admitted and started on IV antibiotics. Responded to IV antibiotic. Swelling, redness and pain improved. He was discharged in stable condition on oral Bactrim. He will follow-up with PCP. Diagnosis: Stroke: No - Discharge Data Discharge Date: 05/11/20 Discharge Disposition: Home, Self-Care 01 Condition: Stable - Referral to Home Health Primary Care Physician: Christal Portillo MD - Discharge Diagnosis/Problem(s) (1) Obesity SNOMED Code(s): 333561134, 478050688 ICD Code: E66.9 - OBESITY, UNSPECIFIED Status: Acute Current Visit: Yes - Patient Summary/Data Consults: Consultations 05/10/20 00:35 OT Evaluation and Treatment [CONS] Routine PT Evaluation and Treatment [CONS] Routine - Patient Instructions Diet: Diabetic Diet Activity: As Tolerated Driving: May Drive Today Showering/Bathing: May Shower Notify Provider of: Fever, Increased Pain, Swelling and Redness, Nausea and/or Vomiting - Discharge Plan *PRESCRIPTION DRUG MONITORING PROGRAM REVIEWED*: Not Applicable *COPY OF PRESCRIPTION DRUG MONITORING REPORT IN PATIENT CHEN: Not Applicable Prescriptions/Med Rec: Sulfamethoxazole/Trimethoprim [Bactrim Ds Tablet] 1 each PO Q12H 7 Days #14 tablet oxyCODONE 5 mg PO Q8HR PRN 3 Days #9 tablet PRN Reason: Pain Home Medications: Home Meds Metoprolol Tartrate 25 mg PO BID 03/15/19 [History] atorvaSTATin [Lipitor] 20 mg PO DAILY 03/15/19 [History] metFORMIN [Glucophage] 500 mg PO BID 02/11/20 [History] Acetaminophen 325 - 650 mg PO Q8H PRN 04/02/20 [History] Nitroglycerin 0.4 mg SL ASDIRECTED PRN 04/02/20 [History] Sulfamethoxazole/Trimethoprim [Bactrim Ds Tablet] 1 each PO Q12H 7 Days #14 tablet 05/11/20 [Rx] oxyCODONE 5 mg PO Q8HR PRN 3 Days #9 tablet 05/11/20 [Rx] Oxygen Therapy Mode: Room Air Patient Handouts: Oxycodone tablets or capsules, Hyperglycemia, [id number], Cellulitis, Adult, [id number], Sulfamethoxazole; Trimethoprim, SMX-TMP tablets, Blood Glucose Monitoring, Adult, Hypoglycemia, [id number] Referrals: Christal Farrell MD [Primary Care Provider] - - Discharge Summary/Plan Comment DC Time >30 min.: Yes - General Info Date of Service: 05/11/20 Admission Dx/Problem (Free Text: Admission Diagnosis/Problem Admission Diagnosis/Problem Cellulitis Functional Status: Reports: Pain Controlled - Review of Systems General: Reports: No Symptoms HEENT: Reports: No Symptoms Pulmonary: Reports: No Symptoms Cardiovascular: Reports: No Symptoms Gastrointestinal: Reports: No Symptoms Genitourinary: Reports: No Symptoms Musculoskeletal: Reports: No Symptoms Skin: Reports: No Symptoms Neurological: Reports: No Symptoms Psychiatric: Reports: No Symptoms - Patient Data Vitals - Most Recent: Last Vital Signs Temp 99.0 F 05/11/20 08:00 Pulse 84 05/11/20 08:45 Resp 22 H 05/11/20 08:00 BP 127/83 05/11/20 08:45 Pulse Ox 94 L 05/11/20 08:00 Weight - Most Recent: 268 lb I&O - Last 24 hours: Intake & Output 05/10/20 05/11/20 05/11/20 22:59 06:59 14:59 Intake Total 864 800 Balance 864 800 Lab Results - Last 24 hrs: Laboratory Results - last 24 hr 05/10/20 05/10/20 05/10/20 Range/Units 11:22 17:26 20:28 POC Glucose 106 H 115 H 109 H (70-105) mg/dl 05/11/20 Range/Units 07:27 POC Glucose 111 H (70-105) mg/dl [facility]ALDEMAR Results - Last 24 hrs: Microbiology 05/09/20 23:01 Wound Culture - Preliminary Thigh, Left 05/09/20 23:31 Aerobic Blood Culture - Preliminary Blood - Arm, Right NO GROWTH AFTER 1 DAY Anaerobic Blood Culture - Preliminary NO GROWTH AFTER 1 DAY 05/09/20 23:10 Aerobic Blood Culture - Preliminary Blood - Arm, Right NO GROWTH AFTER 1 DAY Anaerobic Blood Culture - Preliminary NO GROWTH AFTER 1 DAY Med Orders - Current: Current Medications Acetaminophen (Tylenol) 650 mg PO Q4H PRN PRN Reason: Pain (Mild 1-3)/fever Last Admin: 05/10/20 17:51 Dose: 650 mg Documented by: Atorvastatin Calcium (Lipitor) 20 mg PO DAILY [facility] Last Admin: 05/11/20 08:46 Dose: 20 mg Documented by: Dextrose/Water (Dextrose 50% In Water) 50 ml IV ASDIRECTED PRN PRN Reason: Hypoglycemia Diphenhydramine HCl (Benadryl) 25 mg PO QID PRN PRN Reason: Itching Last Admin: 05/10/20 01:18 Dose: 25 mg Documented by: Fentanyl (Sublimaze) 50 mcg IVPUSH Q2H PRN PRN Reason: Pain (severe 7-10) Last Admin: 05/10/20 09:14 Dose: 50 mcg Documented by: Glucagon (Glucagen) 1 mg IM ASDIRECTED PRN PRN Reason: Hypoglycemia Heparin Sodium (Porcine) (Heparin Sodium) 5,000 units SUBCUT Q12HR [facility] Last Admin: 05/11/20 08:45 Dose: 5,000 units Documented by: Vancomycin HCl 1.5 gm/ Premix 300 mls @ 200 mls/hr IV Q8H [facility] Insulin Glargine (Lantus) 5 unit SUBCUT BEDTIME [facility] Last Admin: 05/10/20 20:28 Dose: Not Given Documented by: Insulin Human Lispro (Humalog) 0 unit SUBCUT WITHMEALSANDBED [facility]; Protocol Last Admin: 05/11/20 08:44 Dose: Not Given Documented by: Metoprolol Tartrate (Lopressor) 25 mg PO BID [facility] Last Admin: 05/11/20 08:45 Dose: 25 mg Documented by: Nitroglycerin (Nitrostat) 0.4 mg SL ASDIRECTED PRN PRN Reason: ANGINA Ondansetron HCl (Zofran) 4 mg IVPUSH Q6H PRN PRN Reason: Nausea/Vomiting Last Admin: 05/10/20 17:51 Dose: 4 mg Documented by: Oxycodone HCl (Oxycodone) 5 mg PO Q6H PRN PRN Reason: Pain Last Admin: 05/11/20 04:35 Dose: 5 mg Documented by: Sodium Chloride (Saline Flush) 10 ml FLUSH ASDIRECTED PRN PRN Reason: Keep Vein Open Vancomycin HCl (Pharmacy To Dose - Vancomycin) 1 dose .XX ASDIRECTED BRINDA Discontinued Medications Dextrose/Water (Dextrose 50% In Water) 50 ml IV ASDIRECTED PRN PRN Reason: Hypoglycemia Glucagon (Glucagen) 1 mg IM ASDIRECTED PRN PRN Reason: Hypoglycemia Vancomycin HCl 1,500 mg/ (Sodium Chloride) 500 mls @ 333.333 mls/hr IV ONETIME ONE Stop: 05/10/20 00:56 Last Admin: 05/09/20 23:42 Dose: 333.333 mls/hr Documented by: Lactated Ringer's (Ringers, Lactated) 1,000 mls @ 125 mls/hr IV ASDIRECTED BRINDA Last Admin: 05/10/20 01:26 Dose: 125 mls/hr Documented by: Vancomycin HCl 1,500 mg/ (Sodium Chloride) 500 mls @ 333.333 mls/hr IV Q8H [facility] Last Infusion: 05/11/20 06:54 Dose: Infused Documented by: Iopamidol (Isovue-300 (61%)) 100 ml IVPUSH ONETIME ONE Stop: 05/09/20 23:47 Last Admin: 05/10/20 00:13 Dose: 100 ml Documented by: - Exam General: Reports: Alert, Oriented HEENT: Reports: Pupils Equal, Pupils Reactive, EOMI, Mucous Membr. Moist/[place] Neck: Reports: Supple Lungs: Reports: Clear to Auscultation, Normal Respiratory Effort Cardiovascular: Reports: Regular Rate, Regular Rhythm GI/Abdominal Exam: Normal Bowel Sounds, Soft, Non-Tender, No Organomegaly, No Distention, No Abnormal Bruit, No Mass, Pelvis Stable (Male) Exam: No Hernia, Normal Inspection, Normal Prostate, Circumcised Rectal (Males) Exam: Normal Exam, Normal Rectal Tone, Prostate Normal Back Exam: Reports: Normal Inspection, Full Range of Motion Extremities: Normal Inspection, Normal Range of Motion, Non-Tender, No Pedal Edema, Normal Capillary Refill Skin: Reports: Warm, Dry, Intact Wound/Incisions: Reports: Healing Well Neurological: Reports: No New Focal Deficit Psy/Mental Status: Reports: Alert, Normal Affect, Normal Mood
[2020-05-11] MEDS ORDERED: VANCOmycin 1.5 GM/300 ML 1.5 GM in Premix Bag 1 BAG IV SCH (13:00)
--- NOTE | 2020-05-11 14:12 | US ---
EXAMINATION: Venous Doppler Lwr Ext Lt SEX: Male AGE: 39 years CLINICAL HISTORY: 39-year-old obese hospitalized diabetic patient with focal area of swelling, laterally, upper left thigh who is complaining of pain, tenderness and swelling left calf. Rule out DVT left lower extremity of this patient being treated for "ingrown hair and cellulitis left lower extremity". INTERPRETATION: No sign of intraluminal echogenic thrombus and normal compressibility deep veins of the left groin, thigh and knee (peroneal and posterior tibial veins of the left calf not visualized). Satisfactory augmentation and venous waveforms demonstrated respectively in the common/superficial femoral veins of the left groin/thigh and popliteal vein behind the left knee. Deep veins of the swollen left calf not defined. No sign of popliteal or Weir's cyst. Note: Subcutaneous, triangular, collection of fluid measuring 1.1 x 2.3 by 2.1 Cm is demonstrated in the area of swelling, laterally left thigh. Sonographic differential is small abscess versus hematoma. No foreign bodies identified. CONCLUSION: No DVT left lower extremity. Probable small abscess left thigh "area of swelling".
== END 2020-05-11 12:00 | disposition home or self-care (01) ==
LOC: DL.ED 22:05 → DL.MS 23:37
PROVIDERS: ADMIT Student in an Organized Health Care Education/Training Program; ATTEND Student in an Organized Health Care Education/Training Program
DX: L03.116 Cellulitis of left lower limb (principal); I12.9 Hypertensive chronic kidney disease with stage 1 through stage 4 chronic kidney disease, or unspecified chronic kidney disease; E11.22 Type 2 diabetes mellitus with diabetic chronic kidney disease; N18.9 Chronic kidney disease, unspecified; E66.9 Obesity, unspecified; E78.00 Pure hypercholesterolemia, unspecified; I48.91 Unspecified atrial fibrillation; I47.1 Supraventricular tachycardia; Z20.822 Contact with and (suspected) exposure to COVID-19; Z79.4 Long term (current) use of insulin; Z88.0 Allergy status to penicillin; Z79.899 Other long term (current) drug therapy; Z98.890 Other specified postprocedural states; Z68.41 Body mass index [BMI] 40.0-44.9, adult
CPT/HCPCS: 10060; 36415; 73701; 80053; 82962; 83605; 85025; 85027; 87040; 87070; 87077; 87186; 87635; 93971; 96365; 96366; 96372; 96375; 96376; 97162; 97165; 99284; A9270; G0378; J1644; J1815; J2405; J3010; J3370; J7040; J7120; Q9967; 99217; 99219; U0002

== ENCOUNTER 2020-06-11 05:40 | Emergency (ER) | payer MEDICAID ==
[2020-06-11] MEDS ORDERED: Ibuprofen 400 MG Tab PO ONE (06:05)
--- NOTE | 2020-06-11 06:29 | EDM.PDOC ---
ED HPI GENERAL MEDICAL PROBLEM - General Chief Complaint: General Stated Complaint: left pain in ribs? coughed and heard a pop Time Seen by Provider: 06/11/20 05:55 Source of Information: Reports: Patient, RN, RN Notes Reviewed History Limitations: Reports: No Limitations - History of Present Illness INITIAL COMMENTS - FREE TEXT/NARRATIVE: Patient presents to the ED via personal vehicle with for complaints of pain to left lower ribs. The patient states he has experienced a harsh dry cough for approximately 2 weeks since he started smoking again. He states at 530 this morning he was coughing when he heard a "pop" in his left lower ribs and immediately started to feel pain. He characterizes the pain is sharp in nature and rates it at a 7 at rest and an 8 while breathing. He denies experiencing pain similar to this before. He is concerned he injured her ribs while coughing. He has not taken any medication for his dry cough or his pain. He denies fever, shaking chills, sinus pressure/pain, sore throat, chest pain, palpitations, shortness of breath, nausea, diarrhea, or constipation. He states he has been smoke-free for 6 months but recently restarted due to family stress. He denies alcohol or recreational drug use. Left Trunk Pain Score (Numeric/FACES): 9 - Related Data Allergies Allergy/AdvReac Type Severity Reaction Status Date / Time amoxicillin Allergy Other Verified 05/08/20 18:42 Home Meds: Home Meds Metoprolol Tartrate 25 mg PO BID 03/15/19 [History] atorvaSTATin [Lipitor] 20 mg PO DAILY 03/15/19 [History] metFORMIN [Glucophage] 500 mg PO BID 02/11/20 [History] Acetaminophen 325 - 650 mg PO Q8H PRN 04/02/20 [History] Nitroglycerin 0.4 mg SL ASDIRECTED PRN 04/02/20 [History] Sulfamethoxazole/Trimethoprim [Bactrim Ds Tablet] 1 each PO Q12H 7 Days #14 tablet 05/11/20 [Rx] oxyCODONE 5 mg PO Q8HR PRN 3 Days #9 tablet 05/11/20 [Rx] Past Medical History HEENT History: Reports: Impaired Vision Other HEENT History: wears corrective lenses Cardiovascular History: Reports: Afib, High Cholesterol, Hypertension, Other (See Below) Other Cardiovascular History: Tachycardic episode about 6 years ago. Related it to caffiene. Had heart workup and angiogram. SVT. A-fib. States he also has a "leaky heart valve" Respiratory History: Reports: None Gastrointestinal History: Reports: Diverticulosis, GERD, Other (See Below) Other Gastrointestinal History: HX OF DIVERTICULITIS Genitourinary History: Reports: Chronic Renal Insuffiency Musculoskeletal History: Reports: Back Pain, Chronic Neurological History: Reports: None Psychiatric History: Reports: None, Anxiety, Panic Attack Endocrine/Metabolic History: Reports: Diabetes, Type II, Hypothyroidism Hematologic History: Reports: None Immunologic History: Reports: None Oncologic (Cancer) History: Reports: None Dermatologic History: Reports: Other (See Below) Other Dermatologic History: fatty tumor removed back of head - Infectious Disease History Infectious Disease History: Reports: Chicken Pox, Measles, Mumps - Past Surgical History Head Surgeries/Procedures: Reports: Other (See Below) HEENT Surgical History: Reports: Other (See Below) Other HEENT Surgeries/Procedures: surgical removal fatty tumor from posterior head Cardiovascular Surgical History: Reports: Other (See Below) Other Cardiovascular Surgeries/Procedures: angiogram Neurological Surgical History: Reports: Other (See Below) Other Neurological Surgeries/Procedures: S/P SOFT TISSUE TUMOR EXCISION NECK Social & Family History - Family History Family Medical History: No Pertinent Family History HEENT: Reports: None Cardiac: Reports: Other (See Below) - Tobacco Use Tobacco Use Status *Q: Current Every Day Tobacco User Years of Tobacco use: 15 Packs/Tins Daily: 0.5 Second Hand Smoke Exposure: Yes - Caffeine Use Caffeine Use: Reports: Coffee, Soda Other Caffeine Use: 2/day - Recreational Drug Use Recreational Drug Use: No ED ROS GENERAL - Review of Systems Review Of Systems: Comprehensive ROS is negative, except as noted in HPI. ED EXAM, GENERAL - Physical Exam Exam: See Below Exam Limited By: No Limitations General Appearance: Alert, No Apparent Distress Eye Exam: Bilateral Eye: EOMI, Normal Inspection, PERRL (3mm) Ears: Normal External Exam, Normal Canal, Hearing Grossly Normal. No: Normal TMs (Right TM injected) Ear Exam: Right Ear: Erythema (Injected TM), TM Red (Injected TM), Left Ear: TM normal, Bilateral Ear: Auricle Normal, Canal Normal Nose: Normal Inspection, Normal Mucosa, No Blood Throat/Mouth: Normal Lips, Normal Teeth, Normal Gums, Normal Voice, No Airway Compromise. No: Normal Oropharynx (Dry mucous membranes) Head: Atraumatic, Normocephalic Neck: Normal Inspection, Supple, Non-Tender, Full Range of Motion. No: Lymphadenopathy (L), Lymphadenopathy (R) Respiratory/Chest: No Respiratory Distress, Lungs Clear, Normal Breath Sounds, No Accessory Muscle Use. No: Chest Non-Tender (Pain to palpation of left lateral thorax), Crackles, Rales, Rhonchi, Wheezing, Stridor Cardiovascular: Normal Peripheral Pulses, Regular Rate, Rhythm, No Edema, No Gallop, No JVD, No Murmur, No Rub Peripheral Pulses: 2+: Radial (L), Radial (R) GI/Abdominal: Normal Bowel Sounds, Soft, Non-Tender, No Distention, No Mass, Pelvis Stable (Male) Exam: Deferred Rectal (Males) Exam: Deferred Back Exam: Normal Inspection, Full Range of Motion Extremities: Normal Inspection, Normal Range of Motion, Non-Tender, Normal Capillary Refill, No Pedal Edema Neurological: Alert, Oriented, CN II-XII Intact, Normal Cognition, Normal Gait, No Motor/Sensory Deficits Psychiatric: Normal Affect, Normal Mood Skin Exam: Warm, Dry, Intact, Normal Color, No Rash. No: Ecchymosis, Erythema, Jaundice, Mottled, Pallor, Petechiae Course - Vital Signs Last Recorded V/S: Last Vital Signs Temp 98.5 F 06/11/20 05:49 Pulse 45 L 06/11/20 05:49 Resp 16 06/11/20 05:49 BP 134/88 06/11/20 05:49 Pulse Ox 96 06/11/20 05:49 - Orders/Labs/Meds Meds: Medications Discontinued Medications Generic Name Dose Route Start Last Admin Trade Name Freq PRN Reason Stop Dose Admin Ibuprofen 400 mg 06/11/20 06:05 06/11/20 06:07 Ibuprofen 400 Mg Tab PO 06/11/20 06:06 400 mg ONETIME ONE Administration - Radiology Interpretation Free Text/Narrative:: [facility] [place] [facility] Final Radiology Report Call: [phone] assistance Online chat: [email or web address] Name: CARLOS PEÑALOZA Age: 39Years M Date: 06/11/2020 SSN: -- : [id number] Study: CR RIBS 2V W CHEST LT Requesting Physician: Razia Rios Images: 3 Addl Studies: Provided Clinical History: Pain to left lower ribs Contrast: Contrast Medium: Contrast Amount: Contrast Method: CONFIDENTIALITY STATEMENT This report is intended only for use by the referring physician, and only in accordance with law. If you received this in error, call [phone]. Page 1 of 1 PROCEDURE INFORMATION: Exam: XR Left Ribs with PA Chest Exam date and time: 06/11/2020 6:27 AM Age: 39 years old Clinical indication: Other: Left rib pain; Additional info: Pain to left lower ribs TECHNIQUE: Imaging protocol: XR Left ribs with PA chest. Views: 3 views COMPARISON: CR Chest 1V Frontal 03/15/2019 6:59 PM FINDINGS: Lungs: There are some increased interstitial markings present in the lower hemithoraces bilaterally, left more prominent than right, findings could represent atelectasis versus pneumonitis. Pleural spaces: Unremarkable. No pleural effusion. No pneumothorax. Heart/Mediastinum: Unremarkable. No cardiomegaly. Bones/joints: Unremarkable. IMPRESSION: 1. There are no acute osseous findings. 2. Increased interstitial opacities in the lower hemithoraces, left more prominent than right likely represents atelectasis although a basilar pneumonitis cannot be entirely excluded. Thank you for allowing us to participate in the care of your patient. Dictated and Authenticated by: Tuan Greer MD 06/11/2020 6:53 AM Central Time ([place] & [place]) - Re-Assessments/Exams Free Text/Narrative Re-Assessment/Exam: 06/11/20 Xray of ribs/chest unremarkable for fracture or dislocation of the ribs; atelectasis vs basilar pneumonitis noted in the chest. Given lack of fever, weakness, and shortness of breath, will refrain from treating for pneumonia. Findings of examination and imaging discussed with patient. Watchful waiting, including red flag signs and symptoms which would warrant reevaluation, reviewed. Patient verbalized understanding and agreement with the plan of care. Departure - Departure Time of Disposition: 07:05 Disposition: Home, Self-Care 01 Condition: Good Clinical Impression: Mild bibasilar atelectasis, Rib pain on left side, Cough - Discharge Information *PRESCRIPTION DRUG MONITORING PROGRAM REVIEWED*: Not Applicable *COPY OF PRESCRIPTION DRUG MONITORING REPORT IN PATIENT CHEN: Not Applicable Instructions: Cough, Adult, [id number], Atelectasis, Adult Forms: ED Department Discharge Additional Instructions: Rx: Charmaine Macias 1.) You may take ibuprofen (Advil/Motrin) 400mg every six hours, as pain and swelling persists. You may also take acetaminophen (Tylenol) 650mg every six hours, as pain persists. You may stagger these medications so you are receiving a dose every three hours. 2.) You may apply ice to the affected area, as pain persists. 3.) Follow up with your primary care provider should you develop fever, shaking chills, productive cough, weakness/fatigue, or if pain to ribs worsens despite medications. 4.) Refrain from smoking cigarettes - even one less cigarette per day is progress! Sepsis Event Note (ED) - Evaluation Sepsis Screening Result: No Definite Risk - Focused Exam Vital Signs: Vital Signs Temp Pulse Resp BP Pulse Ox 06/11/20 05:49 98.5 F 45 L 16 134/88 96
--- NOTE | 2020-06-11 06:53 | CR ---
PROCEDURE INFORMATION: Exam: XR Left Ribs with PA Chest Exam date and time: 06/11/2020 6:27 AM Age: 39 years old Clinical indication: Other: Left rib pain; Additional info: Pain to left lower ribs TECHNIQUE: Imaging protocol: XR Left ribs with PA chest. Views: 3 views COMPARISON: CR Chest 1V Frontal 03/15/2019 6:59 PM FINDINGS: Lungs: There are some increased interstitial markings present in the lower hemithoraces bilaterally, left more prominent than right, findings could represent atelectasis versus pneumonitis. Pleural spaces: Unremarkable. No pleural effusion. No pneumothorax. Heart/Mediastinum: Unremarkable. No cardiomegaly. Bones/joints: Unremarkable. IMPRESSION: 1. There are no acute osseous findings. 2. Increased interstitial opacities in the lower hemithoraces, left more prominent than right likely represents atelectasis although a basilar pneumonitis cannot be entirely excluded.
[2020-06-11 07:20] VITALS: BP 134/88; PULSE 45
== END 2020-06-11 07:15 | disposition home or self-care (01) ==
LOC: DL.ED 05:40
DX: J98.11 Atelectasis (principal); I48.91 Unspecified atrial fibrillation; I10 Essential (primary) hypertension; E03.9 Hypothyroidism, unspecified; E78.00 Pure hypercholesterolemia, unspecified; Z79.899 Other long term (current) drug therapy; Z79.84 Long term (current) use of oral hypoglycemic drugs; Z88.1 Allergy status to other antibiotic agents
CPT/HCPCS: 71101; 99283; 99284; A9270

== ENCOUNTER 2020-06-29 21:03 | Inpatient (IN) | payer MEDICAID ==
--- NOTE | 2020-06-29 22:00 | EDM.PDOC ---
ED HPI GENERAL MEDICAL PROBLEM - General Chief Complaint: Skin Complaint Stated Complaint: RIGHT SIDE BOIL Time Seen by Provider: 06/29/20 21:56 Source of Information: Reports: Patient, Family (), RN, RN Notes Reviewed History Limitations: Reports: No Limitations - History of Present Illness INITIAL COMMENTS - FREE TEXT/NARRATIVE: Patient presents to the ED via personal vehicle for complaints of an open sore and significant redness to his right lower abdomen. The patient states the sore developed about three days ago after he began wearing a new belt. He notes the sore began to open and is now bloody. He characterizes the pain as sharp in nature and notes it radiates around the sore. The patient does attest to a history of non-healing wounds due to DM II; he was treated inpatient for a LLE cellulitis that failed OP antibiotics in April of 2020. He denies fever, shaking chills, palpitations, nausea, vomiting, or diarrhea. He denies other wounds and states "..my leg healed up just fine." Abdomen Pain Score (Numeric/FACES): 5 - Related Data Allergies Allergy/AdvReac Type Severity Reaction Status Date / Time amoxicillin Allergy Other Verified 06/29/20 21:22 Home Meds: Home Meds Metoprolol Tartrate 25 mg PO BID 03/15/19 [History] atorvaSTATin [Lipitor] 20 mg PO DAILY 03/15/19 [History] metFORMIN [Glucophage] 500 mg PO BID 02/11/20 [History] Nitroglycerin 0.4 mg SL ASDIRECTED PRN 04/02/20 [History] Acetaminophen [Tylenol] 650 mg PO Q4H PRN tablet 07/01/20 [Rx] Bacitracin [Bacitracin Oint] 28.35 gm .XX BID 10 Days #1 jar 07/01/20 [Rx] Clindamycin HCl 900 mg PO TID 10 Days #30 capsule 07/01/20 [Rx] oxyCODONE HCl/Acetaminophen [Oxycodone-Acetaminophen 5-300] 1 each PO QID PRN 4 Days #16 tablet 07/01/20 [Rx] Past Medical History HEENT History: Reports: Impaired Vision Other HEENT History: wears corrective lenses Cardiovascular History: Reports: Afib, High Cholesterol, Hypertension, OR, Other (See Below) Other Cardiovascular History: Tachycardic episode about 6 years ago. Related it to caffiene. Had heart workup and angiogram. SVT. A-fib. States he also has a "leaky heart valve" Respiratory History: Reports: None Gastrointestinal History: Reports: Diverticulosis, GERD, Other (See Below) Other Gastrointestinal History: HX OF DIVERTICULITIS Genitourinary History: Reports: Chronic Renal Insuffiency Musculoskeletal History: Reports: Back Pain, Chronic Neurological History: Reports: None Psychiatric History: Reports: Anxiety, Panic Attack Endocrine/Metabolic History: Reports: Diabetes, Type II, Hypothyroidism Hematologic History: Reports: None Immunologic History: Reports: None Oncologic (Cancer) History: Reports: None Dermatologic History: Reports: Cellulitis, Other (See Below) Other Dermatologic History: fatty tumor removed back of head - Infectious Disease History Infectious Disease History: Reports: Chicken Pox, Measles, Mumps, Novel Coronavirus - Past Surgical History Head Surgeries/Procedures: Reports: Other (See Below) HEENT Surgical History: Reports: Other (See Below) Other HEENT Surgeries/Procedures: surgical removal fatty tumor from posterior head Cardiovascular Surgical History: Reports: Other (See Below) Other Cardiovascular Surgeries/Procedures: angiogram Neurological Surgical History: Reports: Other (See Below) Other Neurological Surgeries/Procedures: S/P SOFT TISSUE TUMOR EXCISION NECK Social & Family History - Family History Family Medical History: No Pertinent Family History HEENT: Reports: None Cardiac: Reports: Other (See Below) - Tobacco Use Tobacco Use Status *Q: Current Every Day Tobacco User Years of Tobacco use: 15 Packs/Tins Daily: 0.5 - Caffeine Use Caffeine Use: Reports: Soda Other Caffeine Use: 2/day - Recreational Drug Use Recreational Drug Use: No ED ROS GENERAL - Review of Systems Review Of Systems: Comprehensive ROS is negative, except as noted in HPI. ED EXAM, SKIN/RASH Exam: See Below Exam Limited By: No Limitations General Appearance: Alert, No Apparent Distress Peripheral Pulses: 2+: Radial (L), Radial (R) GI/Abdominal: Normal Bowel Sounds, No Distention, No Abnormal Bruit, No Mass, Pelvis Stable, Tender (Surrounding sore to right lower quadrant), Other (Open, bloody sore to right lower pannus; Edema and erythema appreciated to right abdomen) (Male) Exam: Deferred Rectal (Males) Exam: Deferred Back Exam: Normal Inspection, Full Range of Motion Extremities: Normal Inspection, Normal Range of Motion, Non-Tender, No Pedal Edema, Normal Capillary Refill Neurological: Alert, Oriented, CN II-XII Intact, Normal Cognition, Normal Gait, No Motor/Sensory Deficits Psychiatric: Normal Affect, Normal Mood Skin: Erythema, Increased Warmth, Wound/Incision (Open, bloody sore to RLQ to inferior pannus), Other (+1 pitting edema to abdomen). No: Ecchymosis, Jaundice, Mottled, Pallor, Petechiae Location, Skin: Abdomen Characteristics: Erythematous Associated features: Warmth, Tenderness, Swelling, Inflammation, Weeping ED SKIN PROCEDURES - I&D Skin Prep: Chlorhexidine (Hibiciens), Sterile Drape Local Anesthesia: Lidocaine: 1% Plain Local Anesthetic Volume: Other (7cc) Area Incised With: 11 Blade Drainage: Bloody, Small Amount Probed to Break Up Loculations: Yes Packed With: None Sterile Dressinx4(s) Complications: No Course - Vital Signs Last Recorded V/S: Last Vital Signs Temp 97.8 F 07/01/20 08:14 Pulse 82 07/01/20 09:03 Resp 20 07/01/20 08:14 BP 141/82 H 07/01/20 09:03 Pulse Ox 98 07/01/20 08:14 - Orders/Labs/Meds Labs: Laboratory Tests 06/29/20 06/29/20 06/29/20 Range/Units 22:03 22:03 22:03 WBC 8.5 (5.0-10.0) 10^3/uL RBC 5.09 (4.6-6.2) 10^6/uL Hgb 15.7 D (14.0-18.0) g/dL Hct 46.6 (40.0-54.0) % MCV 91.6 (80-100) fL MCH 30.8 (27.0-34.0) pg MCHC 33.7 (33.0-35.0) g/dL Plt Count 244 (150-450) 10^3/uL Neut % (Auto) 67.8 (42.2-75.2) % Lymph % (Auto) 19.1 L (20.5-50.1) % Dickson % (Auto) 7.3 (2-8) % Eos % (Auto) 4.7 H (1.0-3.0) % Baso % (Auto) 1.1 H (0.0-1.0) % Sodium 142 (136-145) mmol/L Potassium 3.6 (3.5-5.1) mmol/L Chloride 104 (98-107) mmol/L Carbon Dioxide 26 (21-32) mmol/L Anion Gap 15.6 H (7-13) mEq/L BUN 21 H (7-18) mg/dL Creatinine 1.10 (0.70-1.30) mg/dL Est Cr Clr Drug Dosing 90.16 mL/min Estimated GFR (MDRD) > 60 BUN/Creatinine Ratio 19.1 (No establ ref range) Glucose 146 H (70-99) mg/dL Lactic Acid 0.6 (0.4-2.0) mmol/L Calcium 8.3 L (8.5-10.1) mg/dL Total Bilirubin 0.5 (0.2-1.0) mg/dL AST 13 L (15-37) U/L ALT 47 (16-63) U/L Alkaline Phosphatase 66 (46-116) U/L C-Reactive Protein < 0.2 (0.0-0.9) mg/dL Total Protein 6.8 (6.4-8.2) g/dL Albumin 3.9 (3.4-5.0) g/dL Globulin 2.9 Albumin/Globulin Ratio 1.3 Meds: Medications Discontinued Medications Generic Name Dose Route Start Last Admin Trade Name Freq PRN Reason Stop Dose Admin Acetaminophen 650 mg 06/30/20 03:21 07/01/20 04:23 Acetaminophen 325 Mg Tab PO 650 mg Q4H PRN Administration Pain (Mild 1-3)/fever Atorvastatin Calcium 20 mg 06/30/20 09:00 07/01/20 09:03 Atorvastatin 20 Mg Tab PO 20 mg DAILY BRINDA Administration Bisacodyl 5 mg 06/30/20 03:21 Bisacodyl 5 Mg Tab PO DAILY PRN Constipation Dextrose/Water 50 ml 06/30/20 03:45 50% Dextrose In Water 50 Ml Syringe IV Q15M PRN Hypoglycemia Diphenhydramine HCl 50 mg 06/29/20 23:22 06/29/20 23:28 Diphenhydramine 50 Mg/Ml Sdv IVPUSH 06/29/20 23:23 50 mg ONETIME ONE Administration Docusate Sodium 100 mg 06/30/20 03:21 Docusate Sodium 100 Mg Cap PO BID PRN Constipation Enoxaparin Sodium 40 mg 06/30/20 09:00 07/01/20 09:04 Enoxaparin 40 Mg/0.4 Ml Syringe SUBCUT 40 mg DAILY BRINDA Administration Glucagon 1 mg 06/30/20 03:45 Glucagon,Human Recombinant 1 Mg Vial IM Q15M PRN Hypoglycemia Vancomycin HCl 1,500 mg/ 500 mls @ 333.333 mls/hr 06/29/20 22:14 06/30/20 00:13 Sodium Chloride IV 06/29/20 23:43 Infused ONETIME ONE Infusion Vancomycin HCl 1.5 gm/ Sodium 250 mls @ 167 mls/hr 06/30/20 04:00 Chloride IV Q8H BRINDA Vancomycin HCl 1.5 gm/ Sodium 250 mls @ 167 mls/hr 06/30/20 06:00 06/30/20 06:05 Chloride IV 167 mls/hr Q8H BRINDA Administration Sterile Water Confirm 06/30/20 05:54 06/30/20 06:05 Sterile Water For Injection Administered 06/30/20 05:55 1 mls/hr Dose Administration 20 mls @ as directed .ROUTE .STK-MED ONE Vancomycin HCl 1.5 gm/ Sodium 250 mls @ 167.007 mls/hr 06/30/20 06:19 07/01/20 05:39 Chloride IV 167.007 mls/hr Q8H BRINDA Administration Vancomycin HCl 1.5 gm/ Sodium 250 mls @ 167.007 mls/hr 07/01/20 14:00 Chloride IV Q8H [facility] Ibuprofen 400 mg 06/30/20 03:21 Ibuprofen 400 Mg Tab PO Q6H PRN Pain (mild 1-3) Insulin Human Lispro 0 unit 06/30/20 08:00 07/01/20 13:03 Insulin Lispro 100 Units/Ml 3 Ml Vial SUBCUT Not Given WITHMEALSANDBED [facility] Protocol Lidocaine HCl 30 ml 06/29/20 23:23 06/29/20 23:28 Lidocaine 1% 30 Ml Sdv INJECT 06/29/20 23:24 30 ml ONETIME ONE Administration Lidocaine HCl 30 ml 06/30/20 11:13 06/30/20 11:23 Lidocaine 1% 30 Ml Sdv INJECT 06/30/20 11:14 30 ml ONETIME ONE Administration Metformin HCl 500 mg 06/30/20 09:00 07/01/20 09:03 Metformin 500 Mg Tab PO 500 mg BID BRINDA Administration Metoprolol Tartrate 25 mg 06/30/20 09:00 07/01/20 09:03 Metoprolol Tartrate 25 Mg Tab PO 25 mg BID BRINDA Administration Morphine Sulfate 4 mg 06/30/20 09:33 06/30/20 10:11 Morphine 4 Mg/Ml Syringe IVPUSH 06/30/20 09:34 4 mg ONETIME STA Administration Nitroglycerin 0.4 mg 06/30/20 03:25 Nitroglycerin 0.4 Mg Tab.Sl SL ASDIRECTED PRN ANGINA Ondansetron HCl 4 mg 06/30/20 03:21 Ondansetron 4 Mg/2 Ml Sdv IVPUSH Q6H PRN Nausea/Vomiting Oxycodone/Acetaminophen 1 tab 07/01/20 10:35 07/01/20 11:17 Acetaminophen/Oxycodone 325-5 Mg Tab PO 07/01/20 10:36 1 tab ONETIME ONE Administration Vancomycin HCl 1 dose 06/30/20 03:30 Pharmacy To Dose - Vancomycin .XX ASDIRECTED [facility] - Re-Assessments/Exams Free Text/Narrative Re-Assessment/Exam: 07/09/20 I&D of sore to RLQ of abdomen performed while labs pending. Wound culture sent. Vancomycin 1.5gm IV administered for cellulitis. Discussed need for possible admission d/t cellulitis and patient history of failed OP treatment; patient currently stating he does not want inpatient treatment. CBC appropriate, WBC currently 8.5 with no left shift. Kidney function and liver function appropriate via CMP, electrolytes WNL. No lactic acid elevation. Given significant pain to abdomen, extent of cellulitis to abdomen, and history of cellulitis refractory to OP abx case discussed with Dr. Grier who kindly a greed to accept patient for inpatient admission. Patient agreeable to hospitalization for IV antibiotics. Departure - Departure Time of Disposition: 00:49 Disposition: Admitted As Inpatient 66 Condition: Fair Clinical Impression: Cellulitis of right abdominal wall, History of infection not responsive to antibiotic therapy - Discharge Information Sepsis Event Note (ED) - Evaluation Sepsis Screening Result: No Definite Risk
[2020-06-29 22:36] LABS: ANION GAP 15.6 mEq/L (7-13); CHLORIDE,CL 104 mmol/L (98-107); SODIUM,NA 142 mmol/L (136-145)
[2020-06-29] MEDS ORDERED: diphenhydrAMINE 50 MG/ML SDV IVPUSH ONE (23:22)
[2020-06-29] MEDS ORDERED: Lidocaine 1% 30 ML SDV INJECT ONE (23:23)
[2020-06-30] MEDS ORDERED: Ondansetron 4 MG/2 ML SDV IVPUSH PRN (03:21)
[2020-06-30] MEDS ORDERED: Docusate Sodium 100 MG Cap PO PRN (03:21)
[2020-06-30] MEDS ORDERED: Bisacodyl 5 MG Tab PO PRN (03:21)
[2020-06-30] MEDS ORDERED: Ibuprofen 400 MG Tab PO PRN (03:21)
[2020-06-30] MEDS ORDERED: Nitroglycerin 0.4 MG Tab.SL SL PRN (03:25)
[2020-06-30] MEDS: Acetaminophen 325 MG Tab PO PRN ×3 (03:37→21:26)
--- NOTE | 2020-06-30 03:39 | PCM.HP ---
H&P History of Present Illness - General Date of Service: 06/30/20 Admit Problem/Dx: Admission Diagnosis/Problem Admission Diagnosis/Problem Cellulitis Source of Information: Patient, Provider (ER) History Limitations: Reports: No Limitations - History of Present Illness Initial Comments - Free Text/Narative: Patient presented to the ED for complaints of an open sore and significant redness to his right lower abdomen. The patient states the sore developed about three days ago after he began wearing a new belt. He notes the sore began to open and is now bloody. Pt was already initiated on Bactrim but his rash was getting worse. The patient does attest to a history of non-healing wounds due to DM II; he was treated inpatient for a cellulitis that failed OP antibiotics in April of 2020. He denies fever, shaking chills, palpitations, nausea, vomiting, or diarrhea. Pt was admitted for large size cellultis to abdominal wall. and started on Van comycin Onset of Symptoms: Reports: Gradual Duration of Symptoms: Reports: Day(s): (3) Location: Reports: Abdomen Abdomen Pain Score (Numeric/FACES): 3 - Related Data Allergies/Adverse Reactions: Allergies Allergy/AdvReac Type Severity Reaction Status Date / Time amoxicillin Allergy Other Verified 06/29/20 21:22 Home Medications: Home Meds Metoprolol Tartrate 25 mg PO BID 03/15/19 [History] atorvaSTATin [Lipitor] 20 mg PO DAILY 03/15/19 [History] metFORMIN [Glucophage] 500 mg PO BID 02/11/20 [History] Acetaminophen 325 - 650 mg PO Q8H PRN 04/02/20 [History] Nitroglycerin 0.4 mg SL ASDIRECTED PRN 04/02/20 [History] Sulfamethoxazole/Trimethoprim [Bactrim Ds Tablet] 1 each PO Q12H 7 Days #14 tabl et 05/11/20 [Rx] oxyCODONE 5 mg PO Q8HR PRN 3 Days #9 tablet 05/11/20 [Rx] Past Medical History HEENT History: Reports: Impaired Vision Other HEENT History: wears corrective lenses Cardiovascular History: Reports: Afib, High Cholesterol, Hypertension, Other (See Below) Other Cardiovascular History: Tachycardic episode about 6 years ago. Related it to caffiene. Had heart workup and angiogram. SVT. A-fib. States he also has a "leaky heart valve" Respiratory History: Reports: None Gastrointestinal History: Reports: Diverticulosis, GERD, Other (See Below) Other Gastrointestinal History: HX OF DIVERTICULITIS Genitourinary History: Reports: Chronic Renal Insuffiency Musculoskeletal History: Reports: Back Pain, Chronic, Other (See Below) Other Musculoskeletal History: patient states "once in awhile" Neurological History: Reports: None Psychiatric History: Reports: Anxiety Endocrine/Metabolic History: Reports: Diabetes, Type II, Hypothyroidism Hematologic History: Reports: None Immunologic History: Reports: None Oncologic (Cancer) History: Reports: None Dermatologic History: Reports: Cellulitis, Other (See Below) Other Dermatologic History: fatty tumor removed back of head - Infectious Disease History Infectious Disease History: Reports: Chicken Pox, Measles, MRSA, Mumps, Novel Coronavirus - Past Surgical History Head Surgeries/Procedures: Reports: Other (See Below) HEENT Surgical History: Reports: Other (See Below) Other HEENT Surgeries/Procedures: surgical removal fatty tumor from posterior head and also in [place] area Cardiovascular Surgical History: Reports: Other (See Below) Other Cardiovascular Surgeries/Procedures: angiogram Social & Family History - Family History Family Medical History: No Pertinent Family History HEENT: Reports: None Cardiac: Reports: Other (See Below) - Tobacco Use Tobacco Use Status *Q: Current Every Day Tobacco User Years of Tobacco use: 25 Packs/Tins Daily: 0.5 Used Tobacco, but Quit: No Second Hand Smoke Exposure: Yes - Caffeine Use Caffeine Use: Reports: Coffee Other Caffeine Use: 2/day - Recreational Drug Use Recreational Drug Use: No H&P Review of Systems - Review of Systems: Review Of Systems: Comprehensive ROS is negative, except as noted in HPI. General: Denies: Fever, Chills Pulmonary: Denies: Shortness of Breath Cardiovascular: Reports: Other. Denies: Chest Pain Skin: Reports: Other Psychiatric: Denies: Confusion Neurological: Denies: Confusion (skin rash to abdomen) Exam - Exam Exam: See Below - Vital Signs Vital Signs: Last Vital Signs Temp 98.9 F 06/30/20 00:58 Pulse 85 06/30/20 00:58 Resp 18 06/30/20 00:58 BP 148/91 H 06/30/20 00:58 Pulse Ox 98 06/30/20 00:58 Weight: 270 lb 6.4 oz - Exam Quality Assessment: No: Supplemental Oxygen General: Alert, Oriented HEENT: EOMI Neck: Supple Lungs: Clear to Auscultation, Normal Respiratory Effort Cardiovascular: Regular Rate, Regular Rhythm GI/Abdominal Exam: Normal Bowel Sounds, Soft (Male) Exam: Deferred Rectal (Males) Exam: Deferred Back Exam: Normal Inspection Extremities: Normal Range of Motion Skin: Other (skin abcess 2 X 2 Cm to RT lower Q . Erythema and tenderenss to about 1/3 of abdominal wall) Skin Alteration Location (Drawings Not To Scale): 1 - redenss and abcess to RT lower quadrent Neurological: Cranial Nerves Intact Neuro Extensive - Mental Status: Alert, Oriented x3 Neuro Extensive - Motor, Sensory, Reflexes: CN II-XII Intact, Normal Gait Psychiatric: Alert, Normal Affect - Patient Data Lab Results Last 24 hrs: Laboratory Results - last 24 hr 06/29/20 06/29/20 06/29/20 Range/Units 22:03 22:03 22:03 WBC 8.5 (5.0-10.0) 10^3/uL RBC 5.09 (4.6-6.2) 10^6/uL Hgb 15.7 D (14.0-18.0) g/dL Hct 46.6 (40.0-54.0) % MCV 91.6 (80-100) fL MCH 30.8 (27.0-34.0) pg MCHC 33.7 (33.0-35.0) g/dL Plt Count 244 (150-450) 10^3/uL Neut % (Auto) 67.8 (42.2-75.2) % Lymph % (Auto) 19.1 L (20.5-50.1) % [place] % (Auto) 7.3 (2-8) % Eos % (Auto) 4.7 H (1.0-3.0) % Baso % (Auto) 1.1 H (0.0-1.0) % Sodium 142 (136-145) mmol/L Potassium 3.6 (3.5-5.1) mmol/L Chloride 104 (98-107) mmol/L Carbon Dioxide 26 (21-32) mmol/L Anion Gap 15.6 H (7-13) mEq/L BUN 21 H (7-18) mg/dL Creatinine 1.10 (0.70-1.30) mg/dL Est Cr Clr Drug Dosing 90.16 mL/min Estimated GFR (MDRD) > 60 BUN/Creatinine Ratio 19.1 (No establ ref range) Glucose 146 H (70-99) mg/dL Lactic Acid 0.6 (0.4-2.0) mmol/L Calcium 8.3 L (8.5-10.1) mg/dL Total Bilirubin 0.5 (0.2-1.0) mg/dL AST 13 L (15-37) U/L ALT 47 (16-63) U/L Alkaline Phosphatase 66 (46-116) U/L C-Reactive Protein < 0.2 (0.0-0.9) mg/dL Total Protein 6.8 (6.4-8.2) g/dL Albumin 3.9 (3.4-5.0) g/dL Globulin 2.9 Albumin/Globulin Ratio 1.3 SARS-CoV-2 RNA ([facility]) (NEGATIVE) 06/30/20 Range/Units 00:50 WBC (5.0-10.0) 10^3/uL RBC (4.6-6.2) 10^6/uL Hgb (14.0-18.0) g/dL Hct (40.0-54.0) % MCV (80-100) fL MCH (27.0-34.0) pg MCHC (33.0-35.0) g/dL Plt Count (150-450) 10^3/uL Neut % (Auto) (42.2-75.2) % Lymph % (Auto) (20.5-50.1) % Sumner % (Auto) (2-8) % Eos % (Auto) (1.0-3.0) % Baso % (Auto) (0.0-1.0) % Sodium (136-145) mmol/L Potassium (3.5-5.1) mmol/L Chloride (98-107) mmol/L Carbon Dioxide (21-32) mmol/L Anion Gap (7-13) mEq/L BUN (7-18) mg/dL Creatinine (0.70-1.30) mg/dL Est Cr Clr Drug Dosing mL/min Estimated GFR (MDRD) BUN/Creatinine Ratio (No establ ref range) Glucose (70-99) mg/dL Lactic Acid (0.4-2.0) mmol/L Calcium (8.5-10.1) mg/dL Total Bilirubin (0.2-1.0) mg/dL AST (15-37) U/L ALT (16-63) U/L Alkaline Phosphatase (46-116) U/L C-Reactive Protein (0.0-0.9) mg/dL Total Protein (6.4-8.2) g/dL Albumin (3.4-5.0) g/dL Globulin Albumin/Globulin Ratio SARS-CoV-2 RNA ([facility]) Negative (NEGATIVE) Result Diagrams: 06/29/20 22:03 06/29/20 22:03 Problem List Initiated/Reviewed/Updated: Yes Orders Last 24hrs: Active Orders 24 hr Category Date Time Status Admission Diagnosis [ADT] Stat ADT 06/30/20 00:33 Ordered Admission Status [Patient Status] [ADT] Routine ADT 06/30/20 00:33 Active Blood Glucose Check, Bedside [RC] WITHMEALSANDBED Care 06/30/20 03:21 Ordered Height and Weight [RC] DAILY Care 06/30/20 03:21 Ordered Intake and Output [RC] QSHIFT Care 06/30/20 03:22 Ordered Oxygen Therapy [RC] PRN Care 06/30/20 03:21 Ordered Up ad Grazyna [RC] ASDIRECTED Care 06/30/20 03:21 Ordered VTE/DVT Education [RC] PER UNIT ROUTINE Care 06/30/20 03:21 Ordered Vital Signs [RC] Q4H Care 06/30/20 03:21 Ordered BASIC METABOLIC PANEL,BMP [CHEM] AM Lab 07/01/20 05:11 Ordered CBC WITH AUTO DIFF [HEME] AM Lab 07/01/20 05:11 Ordered CBC WITH AUTO DIFF [HEME] AM Lab 07/02/20 05:11 Ordered CBC WITH AUTO DIFF [HEME] AM Lab 07/03/20 05:11 Ordered CBC WITH AUTO DIFF [HEME] AM Lab 07/04/20 05:11 Ordered CBC WITH AUTO DIFF [HEME] AM Lab 07/05/20 05:11 Ordered CBC WITH AUTO DIFF [HEME] AM Lab 07/06/20 05:11 Ordered CBC WITH AUTO DIFF [HEME] AM Lab 07/07/20 05:11 Ordered CBC WITH AUTO DIFF [HEME] AM Lab 07/08/20 05:11 Ordered CBC WITH AUTO DIFF [HEME] AM Lab 07/09/20 05:11 Ordered CULTURE BLOOD [BC] Stat Lab 06/29/20 22:03 Received CULTURE WOUND [RM] Stat Lab 06/29/20 23:24 Received Acetaminophen [TylenoL] Med 06/30/20 03:21 Ordered 650 mg PO Q4H PRN Docusate Sodium [Colace] Med 06/30/20 03:21 Ordered 100 mg PO BID PRN Enoxaparin [Lovenox] Med 06/30/20 09:00 Ordered 40 mg SUBCUT DAILY Ibuprofen [Motrin] Med 06/30/20 03:21 Ordered 400 mg PO Q6H PRN Metoprolol Tartrate [Lopressor] Med 06/30/20 09:00 Ordered 25 mg PO BID Nitroglycerin [Nitrostat] Med 06/30/20 03:25 Ordered 0.4 mg SL ASDIRECTED PRN Ondansetron [Zofran] Med 06/30/20 03:21 Ordered 4 mg IVPUSH Q6H PRN Pharmacy to Dose - Vancomycin Med 06/30/20 03:30 Ordered 1 dose .XX ASDIRECTED Vancomycin 1.5 gm Med 06/30/20 03:30 Ordered Sodium Chloride 0.9% [Normal Saline (AdvBag)] 250 ml IV Q12H atorvaSTATin [Lipitor] Med 06/30/20 09:00 Ordered 20 mg PO DAILY bisacodyL [Dulcolax] Med 06/30/20 03:21 Ordered 5 mg PO DAILY PRN metFORMIN [Glucophage] Med 06/30/20 09:00 Ordered 500 mg PO BID Resuscitation Status Routine Resus Stat 06/30/20 03:21 Ordered Medication Orders Acetaminophen (Acetaminophen 325 Mg Tab) 650 mg PO Q4H PRN PRN Reason: Pain (Mild 1-3)/fever Atorvastatin Calcium (Atorvastatin 20 Mg Tab) 20 mg PO DAILY [facility] Bisacodyl (Bisacodyl 5 Mg Tab) 5 mg PO DAILY PRN PRN Reason: Constipation Docusate Sodium (Docusate Sodium 100 Mg Cap) 100 mg PO BID PRN PRN Reason: Constipation Enoxaparin Sodium (Enoxaparin 40 Mg/0.4 Ml Syringe) 40 mg SUBCUT DAILY [facility] Vancomycin HCl 1.5 gm/ Sodium (Chloride) 250 mls @ 167 mls/hr IV Q12H [facility] Ibuprofen (Ibuprofen 400 Mg Tab) 400 mg PO Q6H PRN PRN Reason: Pain (mild 1-3) Metformin HCl (Metformin 500 Mg Tab) 500 mg PO BID [facility] Metoprolol Tartrate (Metoprolol Tartrate 25 Mg Tab) 25 mg PO BID [facility] Nitroglycerin (Nitroglycerin 0.4 Mg Tab.Sl) 0.4 mg SL ASDIRECTED PRN PRN Reason: ANGINA Ondansetron HCl (Ondansetron 4 Mg/2 Ml Sdv) 4 mg IVPUSH Q6H PRN PRN Reason: Nausea/Vomiting Vancomycin HCl (Pharmacy To Dose - Vancomycin) 1 dose .XX ASDIRECTED [facility] Assessment/Plan Comment:: Cellulitis/ skin abscess to abdominal wall: failed outpt treatment. Vanco. dressing. Abscess is already draining. to be reevaluate in AM DM:A1C and Insulin sliding scale HTN and HLP: continue home medication DVT prophylaxis Full code
[2020-06-30] MEDS ORDERED: Glucagon,Human Recombinant 1 MG Vial IM PRN (03:45)
[2020-06-30] MEDS ORDERED: 50% Dextrose in Water 50 ML Syringe IV PRN (03:45)
[2020-06-30] MEDS ORDERED: Water For Injection, Sterile 20 ML ONE (05:54)
[2020-06-30] MEDS: Insulin Lispro 100 Units/ML 3 ML Vial SUBCUT SCH ×4 (09:07→21:29)
[2020-06-30] MEDS: metFORMIN 500 MG Tab PO SCH ×2 (09:27→21:26)
[2020-06-30] MEDS: Metoprolol Tartrate 25 MG Tab PO SCH ×2 (09:27→21:24)
[2020-06-30] MEDS: atorvaSTATin 20 MG Tab PO SCH (09:27)
[2020-06-30] MEDS: Enoxaparin 40 MG/0.4 ML Syringe SUBCUT SCH (09:28)
[2020-06-30] MEDS ORDERED: Morphine 4 MG/ML Syringe IVPUSH STA (09:33)
--- NOTE | 2020-06-30 10:42 | PCM.SN.2 ---
- Free Text/Narrative Note: see H/P from today doing better. No fever Continue with Vanco and dressing change
[2020-06-30] MEDS ORDERED: Lidocaine 1% 30 ML SDV INJECT ONE (11:13)
--- NOTE | 2020-06-30 11:47 | PCM.SN.2 ---
- Free Text/Narrative Note: simple I/D note procedure was explained to pt. consent obtained. Time out was performed. Lidocaine 1% was injected locally The abscess which was already opened in ER was drained again and the incision was mildly expanded. Packing dressing was applied. Pt tolerated well. no blood loss or complications.
[2020-07-01] MEDS: Acetaminophen 325 MG Tab PO PRN (04:23)
[2020-07-01 06:39] LABS: ANION GAP 16.1 mEq/L (7-13); CHLORIDE,CL 106 mmol/L (98-107); SODIUM,NA 144 mmol/L (136-145)
[2020-07-01 06:57] LABS: HEMOGLOBIN A1C 6.6 % (<5.7)
[2020-07-01 08:19] VITALS: BP 141/82
[2020-07-01] MEDS: metFORMIN 500 MG Tab PO SCH (09:03)
[2020-07-01] MEDS: Metoprolol Tartrate 25 MG Tab PO SCH (09:03)
[2020-07-01] MEDS: atorvaSTATin 20 MG Tab PO SCH (09:03)
[2020-07-01] MEDS: Enoxaparin 40 MG/0.4 ML Syringe SUBCUT SCH (09:04)
[2020-07-01 09:06] VITALS: PULSE 82
[2020-07-01] MEDS: Insulin Lispro 100 Units/ML 3 ML Vial SUBCUT SCH ×2 (09:33→13:03)
[2020-07-01] MEDS ORDERED: Acetaminophen/oxyCODONE 325-5 MG Tab PO ONE (10:35)
--- NOTE | 2020-07-01 10:50 | PCM.DCSUM1 ---
Discharge Summary - Hospital Course Free Text/Narrative:: Patient presented to the ED for complaints of an open sore and significant redness to his right lower abdomen. The patient states the sore developed about three days ago after he began wearing a new belt. He notes the sore began to open and is now bloody. Pt was already initiated on Bactrim but his rash was getting worse. The patient does attest to a history of non-healing wounds due to DM II; he was treated inpatient for a cellulitis that failed OP antibiotics in April of 2020. He denies fever, shaking chills, palpitations, nausea, vomiting, or diarrhea. Pt was admitted for large size cellulitis to abdominal wall. and started on Vancomycin Cellulitis/ skin abscess to abdominal wall: failed outpt treatment. Vanco. Skin abscess was I/D ed in ER dressing.Pt was treated with Vancomycin. His cellultis is much better and he had no more drainage out of the abscess. Pt remained afebrile and NL WBC. Pt would prefer to finish his treatment as out pt. Pt will be discharged on Clindamycin PO 900 mg TID for 10 days and to change his dressing daily at home. F/U with PCP next week. DM:A1C: 6.6 and to coontinue with home medications and to try to lose wt. F/U with PCP HTN and HLP: continue home medication - Discharge Data Discharge Date: 07/01/20 Discharge Disposition: Home, Self-Care 01 Condition: Good - Referral to Home Health Primary Care Physician: PCP None - Patient Instructions Diet: Diabetic Diet Wound/Incision Care: Keep Operative Site/Wound Site Clean and Dry Notify Provider of: Fever, Increased Pain, Swelling and Redness, Drainage, Nausea and/or Vomiting - Discharge Plan *PRESCRIPTION DRUG MONITORING PROGRAM REVIEWED*: No *COPY OF PRESCRIPTION DRUG MONITORING REPORT IN PATIENT CHEN: No Prescriptions/Med Rec: Bacitracin [Bacitracin Oint] 28.35 gm .XX BID 10 Days #1 jar Clindamycin HCl 900 mg PO TID 10 Days #30 capsule oxyCODONE HCl/Acetaminophen [Oxycodone-Acetaminophen 5-300] 1 each PO QID PRN 4 Days #16 tablet PRN Reason: Pain (Severe 7-10) Home Medications: Home Meds Metoprolol Tartrate 25 mg PO BID 03/15/19 [History] atorvaSTATin [Lipitor] 20 mg PO DAILY 03/15/19 [History] metFORMIN [Glucophage] 500 mg PO BID 02/11/20 [History] Nitroglycerin 0.4 mg SL ASDIRECTED PRN 04/02/20 [History] Acetaminophen [Tylenol] 650 mg PO Q4H PRN tablet 07/01/20 [Rx] Bacitracin [Bacitracin Oint] 28.35 gm .XX BID 10 Days #1 jar 07/01/20 [Rx] Clindamycin HCl 900 mg PO TID 10 Days #30 capsule 07/01/20 [Rx] oxyCODONE HCl/Acetaminophen [Oxycodone-Acetaminophen 5-300] 1 each PO QID PRN 4 Days #16 tablet 07/01/20 [Rx] Forms: ED Department Discharge Referrals: PCP,None [Primary Care Provider] - - Discharge Summary/Plan Comment DC Time >30 min.: No - General Info Date of Service: 07/01/20 Functional Status: Reports: Pain Controlled, Tolerating Diet - Review of Systems General: Denies: Fever Pulmonary: Denies: Shortness of Breath Cardiovascular: Denies: Chest Pain Gastrointestinal: Denies: Abdominal Pain Neurological: Denies: Confusion Psychiatric: Denies: Confusion - Patient Data Vitals - Most Recent: Last Vital Signs Temp 97.8 F 07/01/20 08:14 Pulse 82 07/01/20 09:03 Resp 20 07/01/20 08:14 BP 141/82 H 07/01/20 09:03 Pulse Ox 98 07/01/20 08:14 Weight - Most Recent: 270 lb 9.6 oz I&O - Last 24 hours: Intake & Output 06/30/20 07/01/20 07/01/20 22:59 06:59 14:59 Intake Total 750 450 Balance 750 450 Lab Results - Last 24 hrs: Laboratory Results - last 24 hr 06/30/20 06/30/20 06/30/20 Range/Units 11:47 16:40 20:54 WBC (5.0-10.0) 10^3/uL RBC (4.6-6.2) 10^6/uL Hgb (14.0-18.0) g/dL Hct (40.0-54.0) % MCV (80-100) fL MCH (27.0-34.0) pg MCHC (33.0-35.0) g/dL Plt Count (150-450) 10^3/uL Neut % (Auto) (42.2-75.2) % Lymph % (Auto) (20.5-50.1) % [place] % (Auto) (2-8) % Eos % (Auto) (1.0-3.0) % Baso % (Auto) (0.0-1.0) % Add Manual Diff Neutrophils % (Manual) (42-75) % Band Neutrophils % % Lymphocytes % (Manual) (20-50) % Monocytes % (Manual) (2-8) % Eosinophils % (Manual) (1-3) % Basophils % (Manual) Sodium (136-145) mmol/L Potassium (3.5-5.1) mmol/L Chloride (98-107) mmol/L Carbon Dioxide (21-32) mmol/L Anion Gap (7-13) mEq/L BUN (7-18) mg/dL Creatinine (0.70-1.30) mg/dL Est Cr Clr Drug Dosing mL/min Estimated GFR (MDRD) Glucose (70-99) mg/dL POC Glucose 97 125 H 137 H (70-105) mg/dl Hemoglobin A1c (<5.7) % Calcium (8.5-10.1) mg/dL 07/01/20 07/01/20 07/01/20 Range/Units 05:50 05:50 05:50 WBC 5.9 (5.0-10.0) 10^3/uL RBC 4.80 (4.6-6.2) 10^6/uL Hgb 14.7 (14.0-18.0) g/dL Hct 44.0 (40.0-54.0) % MCV 91.7 (80-100) fL MCH 30.6 (27.0-34.0) pg MCHC 33.4 (33.0-35.0) g/dL Plt Count 230 (150-450) 10^3/uL Neut % (Auto) 56.2 (42.2-75.2) % Lymph % (Auto) 27.9 (20.5-50.1) % [place] % (Auto) 9.8 H (2-8) % Eos % (Auto) 4.9 H (1.0-3.0) % Baso % (Auto) 1.2 H (0.0-1.0) % Add Manual Diff Yes Neutrophils % (Manual) 56 (42-75) % Band Neutrophils % 3 % Lymphocytes % (Manual) 27 (20-50) % Monocytes % (Manual) 10 H (2-8) % Eosinophils % (Manual) 3 (1-3) % Basophils % (Manual) 1 Sodium 144 (136-145) mmol/L Potassium 4.1 (3.5-5.1) mmol/L Chloride 106 (98-107) mmol/L Carbon Dioxide 26 (21-32) mmol/L Anion Gap 16.1 H (7-13) mEq/L BUN 19 H (7-18) mg/dL Creatinine 1.09 (0.70-1.30) mg/dL Est Cr Clr Drug Dosing 90.99 mL/min Estimated GFR (MDRD) > 60 Glucose 110 H (70-99) mg/dL POC Glucose (70-105) mg/dl Hemoglobin A1c 6.6 H (<5.7) % Calcium 8.2 L (8.5-10.1) mg/dL 07/01/20 Range/Units 08:02 WBC (5.0-10.0) 10^3/uL RBC (4.6-6.2) 10^6/uL Hgb (14.0-18.0) g/dL Hct (40.0-54.0) % MCV (80-100) fL MCH (27.0-34.0) pg MCHC (33.0-35.0) g/dL Plt Count (150-450) 10^3/uL Neut % (Auto) (42.2-75.2) % Lymph % (Auto) (20.5-50.1) % [place] % (Auto) (2-8) % Eos % (Auto) (1.0-3.0) % Baso % (Auto) (0.0-1.0) % Add Manual Diff Neutrophils % (Manual) (42-75) % Band Neutrophils % % Lymphocytes % (Manual) (20-50) % Monocytes % (Manual) (2-8) % Eosinophils % (Manual) (1-3) % Basophils % (Manual) Sodium (136-145) mmol/L Potassium (3.5-5.1) mmol/L Chloride (98-107) mmol/L Carbon Dioxide (21-32) mmol/L Anion Gap (7-13) mEq/L BUN (7-18) mg/dL Creatinine (0.70-1.30) mg/dL Est Cr Clr Drug Dosing mL/min Estimated GFR (MDRD) Glucose (70-99) mg/dL POC Glucose 127 H (70-105) mg/dl Hemoglobin A1c (<5.7) % Calcium (8.5-10.1) mg/dL [facility] Results - Last 24 hrs: Microbiology 06/30/20 00:24 Wound Culture - Preliminary Abdomen - Right Lower 06/29/20 22:03 Aerobic Blood Culture - Preliminary Blood - Venous - Iv Start NO GROWTH AFTER 1 DAY Anaerobic Blood Culture - Preliminary NO GROWTH AFTER 1 DAY Med Orders - Current: Current Medications Acetaminophen (Acetaminophen 325 Mg Tab) 650 mg PO Q4H PRN PRN Reason: Pain (Mild 1-3)/fever Last Admin: 07/01/20 04:23 Dose: 650 mg Documented by: Atorvastatin Calcium (Atorvastatin 20 Mg Tab) 20 mg PO DAILY [facility] Last Admin: 07/01/20 09:03 Dose: 20 mg Documented by: Bisacodyl (Bisacodyl 5 Mg Tab) 5 mg PO DAILY PRN PRN Reason: Constipation Dextrose/Water (50% Dextrose In Water 50 Ml Syringe) 50 ml IV Q15M PRN PRN Reason: Hypoglycemia Docusate Sodium (Docusate Sodium 100 Mg Cap) 100 mg PO BID PRN PRN Reason: Constipation Enoxaparin Sodium (Enoxaparin 40 Mg/0.4 Ml Syringe) 40 mg SUBCUT DAILY [facility] Last Admin: 07/01/20 09:04 Dose: 40 mg Documented by: Glucagon (Glucagon,Human Recombinant 1 Mg Vial) 1 mg IM Q15M PRN PRN Reason: Hypoglycemia Vancomycin HCl 1.5 gm/ Sodium (Chloride) 250 mls @ 167.007 mls/hr IV Q8H [facility] Ibuprofen (Ibuprofen 400 Mg Tab) 400 mg PO Q6H PRN PRN Reason: Pain (mild 1-3) Insulin Human Lispro (Insulin Lispro 100 Units/Ml 3 Ml Vial) 0 unit SUBCUT WITHMEALSANDBED [facility]; Protocol Last Admin: 07/01/20 09:33 Dose: Not Given Documented by: Metformin HCl (Metformin 500 Mg Tab) 500 mg PO BID [facility] Last Admin: 07/01/20 09:03 Dose: 500 mg Documented by: Metoprolol Tartrate (Metoprolol Tartrate 25 Mg Tab) 25 mg PO BID [facility] Last Admin: 07/01/20 09:03 Dose: 25 mg Documented by: Nitroglycerin (Nitroglycerin 0.4 Mg Tab.Sl) 0.4 mg SL ASDIRECTED PRN PRN Reason: ANGINA Ondansetron HCl (Ondansetron 4 Mg/2 Ml Sdv) 4 mg IVPUSH Q6H PRN PRN Reason: Nausea/Vomiting Oxycodone/Acetaminophen (Acetaminophen/Oxycodone 325-5 Mg Tab) 1 tab PO ONETIME ONE Stop: 07/01/20 10:36 Vancomycin HCl (Pharmacy To Dose - Vancomycin) 1 dose .XX ASDIRECTED [facility] Discontinued Medications Diphenhydramine HCl (Diphenhydramine 50 Mg/Ml Sdv) 50 mg IVPUSH ONETIME ONE Stop: 06/29/20 23:23 Last Admin: 06/29/20 23:28 Dose: 50 mg Documented by: Vancomycin HCl 1,500 mg/ (Sodium Chloride) 500 mls @ 333.333 mls/hr IV ONETIME ONE Stop: 06/29/20 23:43 Last Infusion: 06/30/20 00:13 Dose: Infused Documented by: Vancomycin HCl 1.5 gm/ Sodium (Chloride) 250 mls @ 167 mls/hr IV Q8H [facility] Vancomycin HCl 1.5 gm/ Sodium (Chloride) 250 mls @ 167 mls/hr IV Q8H [facility] Last Admin: 06/30/20 06:05 Dose: 167 mls/hr Documented by: Sterile Water (Sterile Water For Injection) Confirm Administered Dose 20 mls @ as directed .ROUTE .STK-MED ONE Stop: 06/30/20 05:55 Last Admin: 06/30/20 06:05 Dose: 1 mls/hr Documented by: Vancomycin HCl 1.5 gm/ Sodium (Chloride) 250 mls @ 167.007 mls/hr IV Q8H [facility] Last Admin: 07/01/20 05:39 Dose: 167.007 mls/hr Documented by: Lidocaine HCl (Lidocaine 1% 30 Ml Sdv) 30 ml INJECT ONETIME ONE Stop: 06/29/20 23:24 Last Admin: 06/29/20 23:28 Dose: 30 ml Documented by: Lidocaine HCl (Lidocaine 1% 30 Ml Sdv) 30 ml INJECT ONETIME ONE Stop: 06/30/20 11:14 Last Admin: 06/30/20 11:23 Dose: 30 ml Documented by: Morphine Sulfate (Morphine 4 Mg/Ml Syringe) 4 mg IVPUSH ONETIME STA Stop: 06/30/20 09:34 Last Admin: 06/30/20 10:11 Dose: 4 mg Documented by: - Exam Quality Assessment: Denies: Supplemental Oxygen General: Reports: Oriented, Cooperative Lungs: Reports: Normal Respiratory Effort Cardiovascular: Reports: Regular Rhythm GI/Abdominal Exam: Soft Rectal (Males) Exam: Deferred Back Exam: Reports: Full Range of Motion Extremities: Normal Range of Motion Skin: Reports: Other (redenss to abdominal wall is much improved and no more drainge out of abcess. ) Neurological: Reports: No New Focal Deficit Psy/Mental Status: Reports: Normal Affect
== END 2020-07-01 12:15 | disposition home or self-care (01) | DRG 603 ==
LOC: DL.ED 21:03 → DL.MS 06-30 00:33 → EEVIPCON 06-30 00:33 → DL.MS 06-30 00:46
PROVIDERS: ADMIT Internal Medicine; ATTEND Internal Medicine
DX: L03.311 Cellulitis of abdominal wall (principal); H54.7 Unspecified visual loss; I48.91 Unspecified atrial fibrillation; I10 Essential (primary) hypertension; E78.5 Hyperlipidemia, unspecified; E78.00 Pure hypercholesterolemia, unspecified; I25.2 Old myocardial infarction; K57.90 Diverticulosis of intestine, part unspecified, without perforation or abscess without bleeding; K21.9 Gastro-esophageal reflux disease without esophagitis; I12.9 Hypertensive chronic kidney disease with stage 1 through stage 4 chronic kidney disease, or unspecified chronic kidney disease; E11.22 Type 2 diabetes mellitus with diabetic chronic kidney disease; N18.9 Chronic kidney disease, unspecified; E11.9 Type 2 diabetes mellitus without complications; G89.29 Other chronic pain; F17.200 Nicotine dependence, unspecified, uncomplicated; Z88.0 Allergy status to penicillin; M54.9 Dorsalgia, unspecified; E03.9 Hypothyroidism, unspecified; F41.9 Anxiety disorder, unspecified; F17.210 Nicotine dependence, cigarettes, uncomplicated; Z88.1 Allergy status to other antibiotic agents; Z79.84 Long term (current) use of oral hypoglycemic drugs; Z79.899 Other long term (current) drug therapy; Z20.822 Contact with and (suspected) exposure to COVID-19
CPT/HCPCS: 36415; 80048; 80053; 82962; 83036; 83605; 85025; 86140; 87040; 87070; 87077; 87186; 99222; 99238; A9270-GY; J1200; J1650; J2270; J3370; J7040; J7050; U0002

== ENCOUNTER 2020-11-18 11:49 | Emergency (ER) | payer MEDICAID ==
[2020-11-18] MEDS ORDERED: Diltiazem 25 MG/5 ML SDV IVPUSH ONE (12:22)
[2020-11-18] MEDS ORDERED: Sodium Chloride 0.9% 1,000 ML IV SCH (12:30)
[2020-11-18 12:40] LABS: ANION GAP 16.7 mEq/L (7-13); CHLORIDE,CL 108 mmol/L (98-107); SODIUM,NA 145 mmol/L (136-145)
[2020-11-18 13:02] VITALS: BP 95/57; PULSE 166
--- NOTE | 2020-11-18 13:37 | CR ---
PROCEDURE INFORMATION: Exam: XR Chest Exam date and time: 11/18/2020 12:46 PM Age: 40 years old Clinical indication: Chest wall pain; Additional info: Chest pain TECHNIQUE: Imaging protocol: XR of the chest. Views: 1 view. COMPARISON: CR Ribs 2V w Chest Lt 06/11/2020 6:27 AM FINDINGS: Lungs: Unremarkable. No consolidation. Pleural spaces: Unremarkable. No pleural effusion. No pneumothorax. Heart/Mediastinum: Unremarkable. No cardiomegaly. Bones/joints: Unremarkable. IMPRESSION: No acute findings.
--- NOTE | 2020-11-18 13:44 | EDM.PDOC ---
Scribed by Rosa Isela Pena 11/18/20 0202 for Марина Odonnell NP ED HPI GENERAL MEDICAL PROBLEM - General Chief Complaint: Chest Pain Stated Complaint: CHEST PAIN, HEART BEATING FAST Time Seen by Provider: 11/18/20 12:12 Source of Information: Reports: Patient, RN, RN Notes Reviewed History Limitations: Reports: No Limitations - History of Present Illness INITIAL COMMENTS - FREE TEXT/NARRATIVE: Patient is a 40-year-old male who presents to ER with complaint of chest tightness and racing heart. This began around 7 A.M. and became lightheaded. Still somewhat lightheaded. No radiation of pain. States some discomfort in left arm but has been present for days--weeks. Admit to shortness of breath today. Denies nausea, vomiting, diarrhea, fever or chills. Supposed to be taking Metoprolol but hasn't taken x1 month. History of heart problems, rapid heart rate and NSTEMI. Onset: Today Duration: Constant Location: Reports: Other (heart) Quality: Reports: Ache Severity: Severe Improves with: Reports: None Worsens with: Reports: None Associated Symptoms: Reports: No Other Symptoms - Related Data Allergies Allergy/AdvReac Type Severity Reaction Status Date / Time amoxicillin Allergy Other Verified 06/29/20 21:22 Home Meds: Home Meds Metoprolol Tartrate 25 mg PO BID 03/15/19 [History] atorvaSTATin [Lipitor] 20 mg PO DAILY 03/15/19 [History] metFORMIN [Glucophage] 500 mg PO BID 02/11/20 [History] Nitroglycerin 0.4 mg SL ASDIRECTED PRN 04/02/20 [History] Acetaminophen [Tylenol] 650 mg PO Q4H PRN tablet 07/01/20 [Rx] Bacitracin [Bacitracin Oint] 28.35 gm .XX BID 10 Days #1 jar 07/01/20 [Rx] Clindamycin HCl 900 mg PO TID 10 Days #30 capsule 07/01/20 [Rx] oxyCODONE HCl/Acetaminophen [Oxycodone-Acetaminophen 5-300] 1 each PO QID PRN 4 Days #16 tablet 07/01/20 [Rx] Past Medical History HEENT History: Reports: Impaired Vision Other HEENT History: wears corrective lenses Cardiovascular History: Reports: Afib, High Cholesterol, Hypertension, Other (See Below) Other Cardiovascular History: Tachycardic episode about 6 years ago. Related it to caffiene. Had heart workup and angiogram. SVT. A-fib. States he also has a "leaky heart valve" Respiratory History: Reports: None Gastrointestinal History: Reports: Diverticulosis, GERD, Other (See Below) Other Gastrointestinal History: HX OF DIVERTICULITIS Genitourinary History: Reports: Chronic Renal Insuffiency Musculoskeletal History: Reports: Back Pain, Chronic, Other (See Below) Other Musculoskeletal History: patient states "once in awhile" Neurological History: Reports: None Psychiatric History: Reports: Anxiety Endocrine/Metabolic History: Reports: Diabetes, Type II, Hypothyroidism Hematologic History: Reports: None Immunologic History: Reports: None Oncologic (Cancer) History: Reports: None Dermatologic History: Reports: Cellulitis, Other (See Below) Other Dermatologic History: fatty tumor removed back of head - Infectious Disease History Infectious Disease History: Reports: Chicken Pox, Measles, MRSA, Mumps, Novel Coronavirus - Past Surgical History Head Surgeries/Procedures: Reports: Other (See Below) HEENT Surgical History: Reports: Other (See Below) Other HEENT Surgeries/Procedures: surgical removal fatty tumor from posterior head and also in [place] area Cardiovascular Surgical History: Reports: Other (See Below) Other Cardiovascular Surgeries/Procedures: angiogram Social & Family History - Family History Family Medical History: No Pertinent Family History HEENT: Reports: None Cardiac: Reports: Other (See Below) - Caffeine Use Caffeine Use: Reports: Coffee Other Caffeine Use: 2/day ED ROS GENERAL - Review of Systems Review Of Systems: Comprehensive ROS is negative, except as noted in HPI. ED EXAM, GENERAL - Physical Exam Exam: See Below Exam Limited By: No Limitations General Appearance: Alert, WD/WN, No Apparent Distress Eye Exam: Bilateral Eye: EOMI, Normal Inspection, PERRL Ears: Normal External Exam, Normal Canal, Hearing Grossly Normal, Normal TMs Nose: Normal Inspection, Normal Mucosa, No Blood Throat/Mouth: Normal Inspection, Normal Lips, Normal Teeth, Normal Gums, Normal Oropharynx, Normal Voice, No Airway Compromise Head: Atraumatic, Normocephalic Neck: Normal Inspection, Supple, Non-Tender, Full Range of Motion Respiratory/Chest: No Respiratory Distress, Lungs Clear, Normal Breath Sounds, No Accessory Muscle Use, Chest Non-Tender Cardiovascular: Tachycardia (--rapid) GI/Abdominal: Normal Bowel Sounds, Soft, Non-Tender, No Organomegaly, No Distention, No Abnormal Bruit, No Mass (Male) Exam: Deferred Rectal (Males) Exam: Deferred Back Exam: Normal Inspection, Full Range of Motion, NT Extremities: Normal Inspection, Normal Range of Motion, Non-Tender, Normal Capillary Refill, No Pedal Edema Neurological: Alert, Oriented, CN II-XII Intact, Normal Cognition, Normal Gait, Normal Reflexes, No Motor/Sensory Deficits Psychiatric: Normal Affect, Normal Mood Skin Exam: Warm, Dry, Intact, Normal Color, No Rash Lymphatic: No Adenopathy #1 Interpretation EKG Date: 11/18/20 Time: 12:06 Rhythm: Other (sinus or ectopic atrial fibrillation) Rate (Beats/Min): 158 EKG Interpretation Comments: ST depression, onsider ischemia, inferior leads. Borderline prolonged QT interval. Course - Vital Signs Last Recorded V/S: Last Vital Signs Temp 97.5 F 11/18/20 11:53 Pulse 166 H 11/18/20 11:53 Resp 18 11/18/20 11:53 BP 95/57 L 11/18/20 11:53 Pulse Ox 94 L 11/18/20 11:53 - Orders/Labs/Meds Orders: Active Orders 24 hr Category Date Time Status Chest 1V Frontal [CR] Stat Exams 11/18/20 12:12 Taken DRUG SCREEN URINE BIORAD [URCHEM] Stat Lab 11/18/20 12:12 Ordered UA RFX WALDEMAR AND CULT IF INDIC [URIN] Stat Lab 11/18/20 12:12 Ordered Labs: Laboratory Tests 11/18/20 11/18/20 11/18/20 Range/Units 12:12 12:12 12:12 WBC 7.0 (5.0-10.0) 10^3/uL RBC 5.18 (4.6-6.2) 10^6/uL Hgb 16.6 D (14.0-18.0) g/dL Hct 47.5 (40.0-54.0) % MCV 91.7 (80-100) fL MCH 32.0 (27.0-34.0) pg MCHC 34.9 (33.0-35.0) g/dL Plt Count 234 (150-450) 10^3/uL Neut % (Auto) 65.1 (42.2-75.2) % Lymph % (Auto) 23.0 (20.5-50.1) % Patrick % (Auto) 7.7 (2-8) % Eos % (Auto) 3.1 H (1.0-3.0) % Baso % (Auto) 1.1 H (0.0-1.0) % PT 10.5 (9.0-12.0) SEC INR 1.0 (0.9-1.2) Sodium 145 (136-145) mmol/L Potassium 3.7 (3.5-5.1) mmol/L Chloride 108 H (98-107) mmol/L Carbon Dioxide 24 (21-32) mmol/L Anion Gap 16.7 H (7-13) mEq/L BUN 19 H (7-18) mg/dL Creatinine 1.13 (0.70-1.30) mg/dL Est Cr Clr Drug Dosing TNP Estimated GFR (MDRD) > 60 BUN/Creatinine Ratio 16.8 (No establ ref range) Glucose 119 H (70-99) mg/dL Calcium 8.7 (8.5-10.1) mg/dL Magnesium 2.2 (1.8-2.4) mg/dL Total Bilirubin 1.0 (0.2-1.0) mg/dL AST 14 L (15-37) U/L ALT 44 (16-63) U/L Alkaline Phosphatase 53 (46-116) U/L Troponin I High Sens 5 (<=76) pg/mL Total Protein 6.8 (6.4-8.2) g/dL Albumin 4.3 (3.4-5.0) g/dL Globulin 2.5 Albumin/Globulin Ratio 1.7 Meds: Medications Discontinued Medications Generic Name Dose Route Start Last Admin Trade Name Freq PRN Reason Stop Dose Admin Diltiazem HCl 25 mg 11/18/20 12:22 11/18/20 12:30 Diltiazem 25 Mg/5 Ml Sdv IVPUSH 11/18/20 12:23 25 mg ONETIME ONE Administration - Re-Assessments/Exams Free Text/Narrative Re-Assessment/Exam: 11/18/20 13:37 After Cardizem injection patient denies having sharp stabbing pain in the chest or any pain at all. States he is feeling much better. Heart rate stays 80s to 90s, blood pressure has gone up to 1 teens to 120s over 80s. 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 Return to the ER with any worsening of symptoms Sepsis Event Note (ED) - Focused Exam Vital Signs: Vital Signs Temp Pulse Resp BP Pulse Ox 11/18/20 11:53 97.5 F 166 H 18 95/57 L 94 L - My Orders Last 24 Hours: My Active Orders 11/18/20 12:12 Chest 1V Frontal [CR] Stat DRUG SCREEN URINE BIORAD [URCHEM] Stat UA RFX WALDEMAR AND CULT IF INDIC [URIN] Stat - Assessment/Plan Last 24 Hours: My Active Orders 11/18/20 12:12 Chest 1V Frontal [CR] Stat DRUG SCREEN URINE BIORAD [URCHEM] Stat UA RFX WALDEMAR AND CULT IF INDIC [URIN] Stat I have read and agree with the documentation that has been completed regarding this visit. By signing this record, I attest that the documentation was completed in my physical presence and is an accurate record of the encounter.
== END 2020-11-18 13:51 | disposition home or self-care (01) ==
LOC: DL.ED 11:49
DX: I48.91 Unspecified atrial fibrillation (principal); E11.22 Type 2 diabetes mellitus with diabetic chronic kidney disease; E78.00 Pure hypercholesterolemia, unspecified; I12.9 Hypertensive chronic kidney disease with stage 1 through stage 4 chronic kidney disease, or unspecified chronic kidney disease; N18.9 Chronic kidney disease, unspecified; E03.9 Hypothyroidism, unspecified; Z79.84 Long term (current) use of oral hypoglycemic drugs; Z88.0 Allergy status to penicillin; Z79.899 Other long term (current) drug therapy
CPT/HCPCS: 36415; 71045; 80053; 83735; 84484; 85025; 85610; 93005; 96374; 99285; J3490; J7030

== ENCOUNTER 2021-07-18 09:14 | Emergency (ER) | payer MEDICAID ==
[2021-07-18 09:43] VITALS: BP 146/102; PULSE 100
[2021-07-18] MEDS ORDERED: Lidocaine 1% 30 ML SDV INJECT ONE (09:58)
== END 2021-07-18 10:44 | disposition home or self-care (01) ==
LOC: DL.ED 09:14
DX: S61.012A Laceration without foreign body of left thumb without damage to nail, initial encounter (principal); E78.00 Pure hypercholesterolemia, unspecified; I10 Essential (primary) hypertension; E11.9 Type 2 diabetes mellitus without complications; F17.210 Nicotine dependence, cigarettes, uncomplicated; Z86.16 Personal history of COVID-19; Z79.899 Other long term (current) drug therapy; Z79.84 Long term (current) use of oral hypoglycemic drugs; Z88.0 Allergy status to penicillin; W23.1XXA Caught, crushed, jammed, or pinched between stationary objects, initial encounter; Y99.0 Civilian activity done for income or pay
CPT/HCPCS: 12001; 99282-25; 99283

== ENCOUNTER 2021-07-27 18:59 | Emergency (ER) | payer MEDICAID ==
[2021-07-27] MEDS ORDERED: Sulfamethoxazole/Trimethoprim 800-160 MG Tab PO ONE ×2 (19:00→19:35)
[2021-07-27 19:39] VITALS: PULSE 94
[2021-07-27] MEDS ORDERED: Bacitracin Oint 1 GM U/D Packet TOP ONE (20:00)
[2021-07-27] MEDS ORDERED: Bacitracin Oint 1 GM U/D Packet ONE (20:08)
[2021-07-27] MEDS ORDERED: Sulfamethoxazole/Trimethoprim 800-160 MG Tab ONE (20:12)
[2021-07-27 20:26] VITALS: BP 141/93
== END 2021-07-27 20:26 | disposition home or self-care (01) ==
LOC: DL.ED 18:59
DX: L03.012 Cellulitis of left finger (principal); E78.00 Pure hypercholesterolemia, unspecified; I10 Essential (primary) hypertension; E11.9 Type 2 diabetes mellitus without complications; Z86.16 Personal history of COVID-19; Z79.899 Other long term (current) drug therapy; Z79.84 Long term (current) use of oral hypoglycemic drugs; Z88.0 Allergy status to penicillin
CPT/HCPCS: 99282; 99284; A9270-GY

== ENCOUNTER 2021-11-23 20:51 | Emergency (ER) | payer MEDICAID ==
[2021-11-23] MEDS ORDERED: Apixaban 5 MG Tab PO ONE (20:52)
[2021-11-23] MEDS ORDERED: Sodium Chloride 0.9% 10 ML Syringe FLUSH PRN (20:54)
[2021-11-23] MEDS ORDERED: Diltiazem 25 MG/5 ML SDV IVPUSH ONE (21:09)
[2021-11-23] MEDS ORDERED: Sodium Chloride 0.9% 1,000 ML IV ONE (21:09)
[2021-11-23 21:42] LABS: ANION GAP 14.6 mEq/L (7-13)
[2021-11-23] MEDS ORDERED: Apixaban 5 MG Tab ONE (22:44)
[2021-11-23 23:01] VITALS: BP 140/82; PULSE 113
== END 2021-11-23 23:04 | disposition left against medical advice (07) ==
LOC: DL.ED 20:51
DX: I48.91 Unspecified atrial fibrillation (principal); E11.9 Type 2 diabetes mellitus without complications; E78.00 Pure hypercholesterolemia, unspecified; I10 Essential (primary) hypertension; E03.9 Hypothyroidism, unspecified; Z20.822 Contact with and (suspected) exposure to COVID-19; Z86.16 Personal history of COVID-19; Z88.0 Allergy status to penicillin; Z79.899 Other long term (current) drug therapy; Z79.84 Long term (current) use of oral hypoglycemic drugs
CPT/HCPCS: 36415; 71045; 80053; 83690; 83735; 84443; 84484; 85025; 85610; 87635; 93005; 96361; 96374; 99285; J3490; J7030; A9270-GY; U0002

== ENCOUNTER 2022-01-08 23:51 | Emergency (ER) | payer MEDICAID ==
[2022-01-09 01:56] VITALS: BP 142/94; PULSE 77
[2022-01-09] MEDS: Clindamycin HCl 150 MG Cap PO ONE (02:02)
[2022-01-09] MEDS: Acetaminophen 325 MG Tab PO ONE (02:02)
== END 2022-01-09 02:20 | disposition home or self-care (01) ==
LOC: DL.ED 23:51
DX: E11.628 Type 2 diabetes mellitus with other skin complications (principal); L02.416 Cutaneous abscess of left lower limb; I10 Essential (primary) hypertension; E78.00 Pure hypercholesterolemia, unspecified; K21.9 Gastro-esophageal reflux disease without esophagitis; Z86.14 Personal history of Methicillin resistant Staphylococcus aureus infection; Z72.0 Tobacco use; Z79.899 Other long term (current) drug therapy
CPT/HCPCS: 82947; 87070; 87077; 87186; 87205; 99282; A9270; 99284

== ENCOUNTER 2022-01-24 17:52 | Emergency (ER) | payer MEDICAID ==
[~2022-01-24 17:52] MED LIST: Adenosine 12 MG/4 ML SDV ONE; Adenosine 6 MG/2 ML SDV IVPUSH ONE; Adenosine 6 MG/2 ML SDV ONE
[2022-01-24] MEDS ORDERED: Sodium Chloride 0.9% 10 ML Syringe FLUSH PRN (17:56)
[2022-01-24] MEDS ORDERED: Sodium Chloride 0.9% 1,000 ML IV ONE (18:05)
[2022-01-24 18:14] LABS: AMPHETAMINES,URINE NEGATIVE (NEGATIVE); BARBITURATES,URINE NEGATIVE (NEGATIVE); BENZODIAZEPINE,URINE NEGATIVE (NEGATIVE); MDMA (ECSTASY), URINE NEGATIVE (NEGATIVE); METHADONE,URINE NEGATIVE (NEGATIVE); METHAMPHETAMINES,URINE NEGATIVE (NEGATIVE); OPIATES,URINE NEGATIVE (NEGATIVE); OXYCODONE,URINE NEGATIVE (NEGATIVE); PHENCYCLIDINE,URINE NEGATIVE (NEGATIVE); TCA,URINE NEGATIVE (NEGATIVE)
[2022-01-24 18:15] VITALS: BP 111/72; PULSE 193
[2022-01-24 18:35] LABS: ANION GAP 13.8 mEq/L (7-13); CHLORIDE,CL 107 mmol/L (98-107); SODIUM,NA 145 mmol/L (136-145)
[2022-01-24 18:38] LABS: ESTIMATED GFR 86 mL/min (>=60)
== END 2022-01-24 20:45 | disposition home or self-care (01) ==
LOC: DL.ED 17:52
DX: I47.1 Supraventricular tachycardia (principal); E78.00 Pure hypercholesterolemia, unspecified; I10 Essential (primary) hypertension; E11.9 Type 2 diabetes mellitus without complications; Z88.0 Allergy status to penicillin; Z79.899 Other long term (current) drug therapy; Z79.84 Long term (current) use of oral hypoglycemic drugs; Z86.16 Personal history of COVID-19
CPT/HCPCS: 36415; 71045; 80053; 80305; 81003; 83605; 83735; 83880; 84484; 85025; 86140; 93005; 96361; 96374; 99285; J0153; J3490; J7030

== ENCOUNTER 2022-03-02 21:07 | Emergency (ER) | payer MEDICAID ==
[2022-03-02] MEDS ORDERED: Sodium Chloride 0.9% 10 ML Syringe FLUSH PRN (21:29)
[2022-03-02 21:51] VITALS: BP 151/93; PULSE 98
[2022-03-02 22:10] LABS: ANION GAP 14.6 mEq/L (7-13)
== END 2022-03-02 22:42 | disposition home or self-care (01) ==
LOC: DL.ED 21:07
DX: R07.89 Other chest pain (principal); I48.91 Unspecified atrial fibrillation; E78.00 Pure hypercholesterolemia, unspecified; I12.9 Hypertensive chronic kidney disease with stage 1 through stage 4 chronic kidney disease, or unspecified chronic kidney disease; E11.22 Type 2 diabetes mellitus with diabetic chronic kidney disease; N18.9 Chronic kidney disease, unspecified; E03.9 Hypothyroidism, unspecified; Z88.0 Allergy status to penicillin; Z79.899 Other long term (current) drug therapy
CPT/HCPCS: 36415; 80053; 84484; 85025; 93005; 99285; J3490

== ENCOUNTER 2023-04-18 15:41 | Emergency (ER) | payer MEDICAID, OTHER ==
[2023-04-18] MEDS ORDERED: Diphtheria,Pertussis(Acell),Tetanus Vaccine 0.5 ML Syringe IM ONE (17:07)
[2023-04-18] MEDS ORDERED: Lidocaine 2% with EPINEPHrine 1:200,000 20 ML SDV INJECT ONE (17:07)
[2023-04-18 17:11] VITALS: BP 165/99; PULSE 98
== END 2023-04-18 18:02 | disposition home or self-care (01) ==
LOC: DL.ED 15:41
DX: S61.011A Laceration without foreign body of right thumb without damage to nail, initial encounter (principal); I10 Essential (primary) hypertension; E78.00 Pure hypercholesterolemia, unspecified; E11.9 Type 2 diabetes mellitus without complications; Z79.84 Long term (current) use of oral hypoglycemic drugs; Z88.0 Allergy status to penicillin; Z86.16 Personal history of COVID-19; W20.8XXA Other cause of strike by thrown, projected or falling object, initial encounter; Z79.899 Other long term (current) drug therapy; Y92.89 Other specified places as the place of occurrence of the external cause; Y99.0 Civilian activity done for income or pay
CPT/HCPCS: 12001; 73120-RT; 90471; 90715; 99282; 99283-25; J3490

== ENCOUNTER 2023-04-26 19:00 | Emergency (ER) | payer OTHER ==
[2023-04-26 20:19] VITALS: BP 161/107; PULSE 98
[2023-04-26] MEDS: Doxycycline Monohydrate 100 MG Cap PO ONE (21:02)
== END 2023-04-26 21:07 | disposition home or self-care (01) ==
LOC: DL.ED 19:00
DX: L08.9 Local infection of the skin and subcutaneous tissue, unspecified (principal); S61.011D Laceration without foreign body of right thumb without damage to nail, subsequent encounter; F17.210 Nicotine dependence, cigarettes, uncomplicated; I10 Essential (primary) hypertension; E78.00 Pure hypercholesterolemia, unspecified; K21.9 Gastro-esophageal reflux disease without esophagitis; E11.9 Type 2 diabetes mellitus without complications; E03.9 Hypothyroidism, unspecified; Z86.16 Personal history of COVID-19; Z79.84 Long term (current) use of oral hypoglycemic drugs; Z79.899 Other long term (current) drug therapy; Z88.0 Allergy status to penicillin
CPT/HCPCS: 99282; 99284; A9270-GY

== ENCOUNTER 2023-10-15 22:16 | Emergency (ER) | payer OTHER ==
[2023-10-15 22:51] LABS: BASOPHILS PERCENT AUTO 1.7 % (0.0-1.0); EOSINOPHILS PERCENT AUTO 5.4 % (1.0-3.0); HEMATOCRIT 45.4 % (40.0-54.0); LYMPHOCYTES PERCENT AUTO 21.5 % (20.5-50.1); MEAN CORPUSCULAR HEMOGLOBIN 35.2 pg (27.0-34.0); MEAN CORPUSCULAR VOLUME 95.2 fL (80-100); MONOCYTES PERCENT AUTO 10.6 % (2-8); NEUTROPHILS PERCENT AUTO 60.8 % (42.2-75.2); PLATELET COUNT,PLT 261 10^3/uL (150-450); RED BLOOD CELL COUNT 4.77 10^6/uL (4.6-6.2); WHITE BLOOD CELL COUNT,WBC 6.3 10^3/uL (5.0-10.0)
[2023-10-15 23:02] LABS: ALBUMIN 4.1 g/dL (3.4-5.0); BILIRUBIN TOTAL 1.4 mg/dL (0.2-1.0); BLOOD UREA NITROGEN,BUN 24 mg/dL (7-18); BUN/CREATININE RATIO 20.5 (No establ ref range); CARBON DIOXIDE,CO2 24 mmol/L (21-32); CHLORIDE,CL 102 mmol/L (98-107); EST CRCL DRUG DOSING (CG) 81.41 mL/min; GLUCOSE RANDOM 186 mg/dL (70-99)
[2023-10-15 23:11] LABS: ESTIMATED GFR 79 mL/min (>=60)
[2023-10-15 23:13] LABS: SODIUM,NA 138 mmol/L (136-145)
[2023-10-15 23:16] LABS: HEMOGLOBIN 16.8 g/dL (14.0-18.0)
[2023-10-15 23:47] LABS: APPEARANCE,URINE CLEAR (CLEAR); BILIRUBIN,URINE NEGATIVE (NEGATIVE); COLOR,URINE YELLOW (YELLOW); GLUCOSE,URINE NEGATIVE (NEGATIVE); KETONES,URINE NEGATIVE (NEGATIVE); LEUKOCYTE ESTERASE,URINE NEGATIVE (NEGATIVE); NITRITE,URINE NEGATIVE (NEGATIVE); OCCULT BLOOD,URINE NEGATIVE (NEGATIVE); PH,URINE 6.5 (5.0-9.0); PROTEIN,URINE NEGATIVE (NEGATIVE)
[2023-10-15 23:54] LABS: ALKALINE PHOSPHATASE 82 U/L (46-116)
[2023-10-16 00:15] LABS: CREATININE 2.31 mg/dL (0.70-1.30)
[2023-10-16 00:23] VITALS: BP 167/89; PULSE 78
[2023-10-16 02:16] LABS: CALCIUM 9.2 mg/dL (8.5-10.1)
[2023-10-16 02:17] LABS: A/G RATIO 1.86
[2023-10-16 02:18] LABS: ALANINE AMINOTRANSFERASE,ALT < 6 U/L (16-63); ASPARTATE AMNIOTRANSFERASE,AST 5 U/L (15-37); PROTEIN TOTAL,TP 6.3 g/dL (6.4-8.2)
== END 2023-10-16 00:36 | disposition home or self-care (01) ==
LOC: DL.ED 22:16
DX: N28.9 Disorder of kidney and ureter, unspecified (principal); M54.50 Low back pain, unspecified; I10 Essential (primary) hypertension; E78.00 Pure hypercholesterolemia, unspecified; E11.9 Type 2 diabetes mellitus without complications; E03.9 Hypothyroidism, unspecified; Z86.16 Personal history of COVID-19; Z79.84 Long term (current) use of oral hypoglycemic drugs; Z79.899 Other long term (current) drug therapy; Z88.0 Allergy status to penicillin
CPT/HCPCS: 36415; 72100; 80053; 81003; 85025; 99283

== ENCOUNTER 2023-11-22 22:32 | Emergency (ER) | payer OTHER ==
[2023-11-22] MEDS: Ketorolac 30 MG/ML SDV IVPUSH ONE (23:02)
[2023-11-22 23:03] LABS: BASOPHILS PERCENT AUTO 1.1 % (0.0-1.0); HEMATOCRIT 44.6 % (40.0-54.0); HEMOGLOBIN 15.4 g/dL (14.0-18.0); LYMPHOCYTES PERCENT AUTO 17.3 % (20.5-50.1); MEAN CORPUSCULAR HEMOGLOBIN 32.2 pg (27.0-34.0); MEAN CORPUSCULAR HGB CONC 34.5 g/dL (33.0-35.0); MEAN CORPUSCULAR VOLUME 93.3 fL (80-100); MONOCYTES PERCENT AUTO 6.9 % (2-8); NEUTROPHILS PERCENT AUTO 71.7 % (42.2-75.2); PLATELET COUNT,PLT 217 10^3/uL (150-450); RED BLOOD CELL COUNT 4.78 10^6/uL (4.6-6.2); WHITE BLOOD CELL COUNT,WBC 9.7 10^3/uL (5.0-10.0)
[2023-11-22] MEDS: Clindamycin in 0.9 % Sod Chlor 900 MG in Premix Bag 1 BAG IV ONE (23:03)
[2023-11-22] MEDS: Iopamidol 612 MG/ML 100 ML Bottle IVPUSH ONE (23:07)
[2023-11-22 23:22] LABS: A/G RATIO 1.5; ANION GAP 14.5 mEq/L (7-13); BILIRUBIN TOTAL 0.7 mg/dL (0.2-1.0); BUN/CREATININE RATIO 26.1 (No establ ref range); CALCIUM 8.3 mg/dL (8.5-10.1); CREATININE 0.88 mg/dL (0.70-1.30); EST CRCL DRUG DOSING (CG) 111.76 mL/min; POTASSIUM,K 3.5 mmol/L (3.5-5.1); PROTEIN TOTAL,TP 6.7 g/dL (6.4-8.2)
[2023-11-22 23:25] LABS: LACTIC ACID 0.3 mmol/L (0.4-2.0)
[2023-11-22 23:27] VITALS: BP 171/109; PULSE 117
[2023-11-22] MEDS: Take Home: Clindamycin HCl 150 MG, 12 Cap Pack PO ONE (23:54)
== END 2023-11-23 00:21 | disposition home or self-care (01) ==
LOC: DL.ED 22:32
DX: K02.9 Dental caries, unspecified (principal); L03.211 Cellulitis of face; I12.9 Hypertensive chronic kidney disease with stage 1 through stage 4 chronic kidney disease, or unspecified chronic kidney disease; N18.9 Chronic kidney disease, unspecified; E78.00 Pure hypercholesterolemia, unspecified; E11.9 Type 2 diabetes mellitus without complications; Z86.16 Personal history of COVID-19; F17.210 Nicotine dependence, cigarettes, uncomplicated; Z79.4 Long term (current) use of insulin; Z79.899 Other long term (current) drug therapy; Z88.0 Allergy status to penicillin
CPT/HCPCS: 36415; 70487; 80053; 83605; 85025; 96365; 96375; 99284; 99284-25; A9270-GY; J1885; J3490; Q9967

== ENCOUNTER 2023-12-17 01:00 | Inpatient (IN) | payer MEDICAID, OTHER ==
[2023-12-17] MEDS ORDERED: Naloxone 2 MG/2 ML Syringe IVPUSH PRN (01:16)
[2023-12-17] MEDS: GI Cocktail Oral Solution 30 ML PO ONE (01:21)
[2023-12-17] MEDS: Aspirin 81 MG Tab.Chew PO ONE (01:21)
[2023-12-17 01:22] LABS: AMPHETAMINES,URINE NEGATIVE (NEGATIVE); BARBITURATES,URINE NEGATIVE (NEGATIVE); BENZODIAZEPINE,URINE NEGATIVE (NEGATIVE); MDMA (ECSTASY), URINE NEGATIVE (NEGATIVE); METHADONE,URINE NEGATIVE (NEGATIVE); METHAMPHETAMINES,URINE NEGATIVE (NEGATIVE); OPIATES,URINE NEGATIVE (NEGATIVE); OXYCODONE,URINE NEGATIVE (NEGATIVE); PHENCYCLIDINE,URINE NEGATIVE (NEGATIVE); TCA,URINE NEGATIVE (NEGATIVE)
[2023-12-17 01:22] LABS: APPEARANCE,URINE CLEAR (CLEAR); BILIRUBIN,URINE NEGATIVE (NEGATIVE); COLOR,URINE YELLOW (YELLOW); GLUCOSE,URINE NEGATIVE (NEGATIVE); KETONES,URINE NEGATIVE (NEGATIVE); LEUKOCYTE ESTERASE,URINE NEGATIVE (NEGATIVE); NITRITE,URINE NEGATIVE (NEGATIVE); OCCULT BLOOD,URINE NEGATIVE (NEGATIVE); PH,URINE 5.5 (5.0-9.0); PROTEIN,URINE NEGATIVE (NEGATIVE); UROBILINOGEN,URINE 0.2 mg/dL (0.2-1.0)
[2023-12-17] MEDS: Morphine 2 MG/ML SYRINGE IVPUSH ONE ×2 (01:22→02:14)
[2023-12-17 01:42] LABS: HEMOGLOBIN 16.2 g/dL (14.0-18.0); MEAN CORPUSCULAR HEMOGLOBIN 33.1 pg (27.0-34.0); MEAN CORPUSCULAR HGB CONC 35.2 g/dL (33.0-35.0); MEAN CORPUSCULAR VOLUME 93.9 fL (80-100); PLATELET COUNT,PLT 197 10^3/uL (150-450)
[2023-12-17 01:57] LABS: LYMPHOCYTES PERCENT AUTO 32.2 % (20.5-50.1); MONOCYTES PERCENT AUTO 15.7 % (2-8); NEUTROPHILS PERCENT AUTO 46.7 % (42.2-75.2)
[2023-12-17 01:58] LABS: BASOPHILS PERCENT AUTO 1.4 % (0.0-1.0); EOSINOPHILS PERCENT MAN 1 % (1-3); LYMPHOCYTES PERCENT MAN 37 % (20-50); MONOCYTES PERCENT MAN 13 % (2-8); SEG NEUTROPHILS PERCENT MAN 48 % (42-75)
[2023-12-17 01:59] LABS: BASOPHILS PERCENT MAN 1
[2023-12-17 02:00] LABS: PROTHROMBIN TIME 9.9 SEC (9.0-12.0); PTT,PARTIAL THROMBOPLSTIN TIME 22.6 SEC (22.0-34.0)
[2023-12-17 02:04] LABS: A/G RATIO 1.4; ALBUMIN 4.2 g/dL (3.4-5.0); ALKALINE PHOSPHATASE 68 U/L (46-116); ANION GAP 17.8 mEq/L (7-13); BILIRUBIN TOTAL 0.8 mg/dL (0.2-1.0); BLOOD UREA NITROGEN,BUN 14 mg/dL (7-18); BUN/CREATININE RATIO 13.2 (No establ ref range); CALCIUM 8.7 mg/dL (8.5-10.1); CARBON DIOXIDE,CO2 23 mmol/L (21-32); CHLORIDE,CL 102 mmol/L (98-107); CREATININE 1.06 mg/dL (0.70-1.30); EST CRCL DRUG DOSING (CG) 92.78 mL/min; GLUCOSE RANDOM 154 mg/dL (70-99); LIPASE 88 U/L (16-77); MAGNESIUM 2.4 mg/dL (1.8-2.4); POTASSIUM,K 3.8 mmol/L (3.5-5.1); PROTEIN TOTAL,TP 7.3 g/dL (6.4-8.2)
[2023-12-17 02:05] LABS: ESTIMATED GFR 89 mL/min (>=60); SODIUM,NA 139 mmol/L (136-145)
[2023-12-17 02:08] LABS: D-DIMER QUANTITATIVE < 100 ng/mL (0-400)
[2023-12-17 02:11] LABS: B-TYPE NATRIURETIC PEPTIDE,BNP < 5 pg/ml (0-100)
[2023-12-17] MEDS: Sodium Chloride 0.9% 1,000 ML IV ONE ×2 (02:16→03:55)
[2023-12-17] MEDS: Sodium Chloride 0.9% 10 ML Syringe FLUSH PRN (02:17)
[2023-12-17 02:18] LABS: ALANINE AMINOTRANSFERASE,ALT 66 U/L (16-63)
[2023-12-17 02:31] LABS: ASPARTATE AMNIOTRANSFERASE,AST 25 U/L (15-37)
[2023-12-17] MEDS: Iopamidol 612 MG/ML 100 ML Bottle IVPUSH ONE (02:53)
[2023-12-17 03:07] LABS: LACTIC ACID < 0.4 mmol/L (0.4-2.0)
[2023-12-17] MEDS ORDERED: Acetaminophen 325 MG Tab PO PRN (04:49)
[2023-12-17] MEDS ORDERED: Albuterol/Ipratropium 3.0-0.5 MG/3 ML Neb Soln NEB PRN ×2 (04:49→05:25)
[2023-12-17] MEDS ORDERED: Acetaminophen/oxyCODONE 325-5 MG Tab PO PRN (04:51)
[2023-12-17] MEDS ORDERED: HYDROmorphone 1 MG/ML Syringe IVPUSH PRN (04:52)
[2023-12-17] MEDS ORDERED: Melatonin 3 MG Tab PO PRN (04:55)
[2023-12-17] MEDS ORDERED: Acetaminophen/Butalbital/Caffeine 325-50-40 MG Tab PO PRN (04:55)
[2023-12-17] MEDS: Dextrose 5%-0.9% NaCl 1,000 ML IV SCH (05:11)
[2023-12-17] MEDS ORDERED: Polyethylene Glycol 3350 Powder 17 GM Packet PO PRN (05:25)
[2023-12-17] MEDS ORDERED: Sennosides/Docusate Sodium 50-8.6 MG Tab PO PRN (05:25)
[2023-12-17] MEDS ORDERED: Magnesium Hydroxide 400 MG/5 ML Susp 30 ML Cup PO PRN (05:25)
[2023-12-17] MEDS: Ondansetron 4 MG/2 ML SDV IVPUSH PRN (05:35)
[2023-12-17 06:22] LABS: LIPASE 72 U/L (16-77)
[2023-12-17 06:26] LABS: C-REACTIVE PROTEIN < 0.50 ng/dL (<=0.50)
[2023-12-17] MEDS: Enoxaparin 40 MG/0.4 ML Syringe SUBCUT SCH (13:54)
[2023-12-17] MEDS: Scopalamine 1mg/3day Transdermal Patch TOP ONE (20:59)
[2023-12-17] MEDS: diazePAM 5 MG/ML MDV IV ONE (21:06)
[2023-12-18 06:35] LABS: HEMOGLOBIN 14.4 g/dL (14.0-18.0); MEAN CORPUSCULAR HEMOGLOBIN 32.6 pg (27.0-34.0); MEAN CORPUSCULAR HGB CONC 34.3 g/dL (33.0-35.0); PLATELET COUNT,PLT 184 10^3/uL (150-450); RED BLOOD CELL COUNT 4.42 10^6/uL (4.6-6.2); WHITE BLOOD CELL COUNT,WBC 4.7 10^3/uL (5.0-10.0)
[2023-12-18 06:57] LABS: BASOPHILS PERCENT AUTO 1.3 % (0.0-1.0); EOSINOPHILS PERCENT AUTO 4.9 % (1.0-3.0); LYMPHOCYTES PERCENT AUTO 29.7 % (20.5-50.1); MONOCYTES PERCENT AUTO 13.4 % (2-8); NEUTROPHILS PERCENT AUTO 50.7 % (42.2-75.2)
[2023-12-18 07:24] LABS: A/G RATIO 1.4; ALANINE AMINOTRANSFERASE,ALT 46 U/L (16-63); ALBUMIN 3.4 g/dL (3.4-5.0); ALKALINE PHOSPHATASE 47 U/L (46-116); ANION GAP 8.8 mEq/L (7-13); ASPARTATE AMNIOTRANSFERASE,AST 23 U/L (15-37); BLOOD UREA NITROGEN,BUN 8 mg/dL (7-18); BUN/CREATININE RATIO 8.2 (No establ ref range); CALCIUM 8.1 mg/dL (8.5-10.1); CARBON DIOXIDE,CO2 29 mmol/L (21-32); CHLORIDE,CL 107 mmol/L (98-107); CREATININE 0.98 mg/dL (0.70-1.30); EST CRCL DRUG DOSING (CG) 100.35 mL/min; GLUCOSE RANDOM 115 mg/dL (70-99); MAGNESIUM 2.3 mg/dL (1.8-2.4); POTASSIUM,K 3.8 mmol/L (3.5-5.1); PROTEIN TOTAL,TP 5.9 g/dL (6.4-8.2); SODIUM,NA 141 mmol/L (136-145)
[2023-12-18 07:27] LABS: BAND PERCENT MAN 3 %; EOSINOPHILS PERCENT MAN 7 % (1-3); LYMPHOCYTES PERCENT MAN 30 % (20-50); MONOCYTES PERCENT MAN 11 % (2-8); SEG NEUTROPHILS PERCENT MAN 49 % (42-75)
[2023-12-18 07:30] LABS: ESTIMATED GFR 98 mL/min (>=60)
[2023-12-18 07:31] LABS: C-REACTIVE PROTEIN < 0.50 ng/dL (<=0.50)
[2023-12-18 16:07] VITALS: BP 137/83; PULSE 81
== END 2023-12-18 18:00 | disposition home or self-care (01) | DRG 439 ==
LOC: DL.ED 01:00 → DL.MS 03:53
PROVIDERS: ADMIT Internal Medicine; ATTEND Internal Medicine
DX: K85.20 Alcohol induced acute pancreatitis without necrosis or infection (principal); K86.2 Cyst of pancreas; H54.7 Unspecified visual loss; I48.91 Unspecified atrial fibrillation; E78.00 Pure hypercholesterolemia, unspecified; K21.9 Gastro-esophageal reflux disease without esophagitis; I12.9 Hypertensive chronic kidney disease with stage 1 through stage 4 chronic kidney disease, or unspecified chronic kidney disease; N18.9 Chronic kidney disease, unspecified; E11.22 Type 2 diabetes mellitus with diabetic chronic kidney disease; E03.9 Hypothyroidism, unspecified; F41.9 Anxiety disorder, unspecified; E66.9 Obesity, unspecified; F17.210 Nicotine dependence, cigarettes, uncomplicated; K29.20 Alcoholic gastritis without bleeding; F10.129 Alcohol abuse with intoxication, unspecified; E11.65 Type 2 diabetes mellitus with hyperglycemia; E27.8 Other specified disorders of adrenal gland; I25.2 Old myocardial infarction; Z88.0 Allergy status to penicillin; Z79.84 Long term (current) use of oral hypoglycemic drugs; Z79.899 Other long term (current) drug therapy; Z87.19 Personal history of other diseases of the digestive system; Z86.16 Personal history of COVID-19; Z68.37 Body mass index [BMI] 37.0-37.9, adult
CPT/HCPCS: 36415; 71046; 71260; 74177; 80053; 80305-QW; 80307; 81003; 83605; 83690; 83735; 83880; 84484; 85025; 85379; 85610; 85730; 86140; 87040; 93005; 96361; 96374; 99223; 99238; 99285-25; A9270-GY; J1650; J2270; J2405; J3360; J3490; J7030; J7042; Q9967

== ENCOUNTER 2023-12-24 01:31 | Emergency (ER) | payer MEDICAID, OTHER ==
[2023-12-24] MEDS: MVI, Adult with Vitamin K 10 ML, Folic Acid 1 MG, Thiamine 100 MG in Lactated Ringers 1... IV ONE (01:56)
[2023-12-24 02:02] LABS: HEMATOCRIT 46.2 % (40.0-54.0); MEAN CORPUSCULAR HEMOGLOBIN 32.6 pg (27.0-34.0); MEAN CORPUSCULAR HGB CONC 34.6 g/dL (33.0-35.0); MEAN CORPUSCULAR VOLUME 94.1 fL (80-100); PLATELET COUNT,PLT 260 10^3/uL (150-450); RED BLOOD CELL COUNT 4.91 10^6/uL (4.6-6.2); WHITE BLOOD CELL COUNT,WBC 8.9 10^3/uL (5.0-10.0)
[2023-12-24 02:07] LABS: APPEARANCE,URINE CLEAR (CLEAR); BILIRUBIN,URINE NEGATIVE (NEGATIVE); GLUCOSE,URINE NEGATIVE (NEGATIVE); KETONES,URINE NEGATIVE (NEGATIVE); LEUKOCYTE ESTERASE,URINE NEGATIVE (NEGATIVE); NITRITE,URINE NEGATIVE (NEGATIVE); OCCULT BLOOD,URINE NEGATIVE (NEGATIVE); PH,URINE 5.5 (5.0-9.0); PROTEIN,URINE NEGATIVE (NEGATIVE); UROBILINOGEN,URINE 0.2 mg/dL (0.2-1.0)
[2023-12-24 02:08] LABS: EOSINOPHILS PERCENT AUTO 2.3 % (1.0-3.0); LYMPHOCYTES PERCENT AUTO 30.2 % (20.5-50.1); MONOCYTES PERCENT AUTO 10.2 % (2-8); NEUTROPHILS PERCENT AUTO 56.2 % (42.2-75.2)
[2023-12-24 02:09] LABS: COLOR,URINE LIGHT YELLOW (YELLOW)
[2023-12-24 02:11] LABS: AMPHETAMINES,URINE NEGATIVE (NEGATIVE); BARBITURATES,URINE NEGATIVE (NEGATIVE); BENZODIAZEPINE,URINE NEGATIVE (NEGATIVE); MDMA (ECSTASY), URINE NEGATIVE (NEGATIVE); METHADONE,URINE NEGATIVE (NEGATIVE); METHAMPHETAMINES,URINE NEGATIVE (NEGATIVE); OPIATES,URINE NEGATIVE (NEGATIVE); OXYCODONE,URINE NEGATIVE (NEGATIVE); PHENCYCLIDINE,URINE NEGATIVE (NEGATIVE); TCA,URINE NEGATIVE (NEGATIVE)
[2023-12-24 02:22] LABS: CREATININE 1.01 mg/dL (0.70-1.30); EST CRCL DRUG DOSING (CG) 97.37 mL/min; POTASSIUM,K 3.4 mmol/L (3.5-5.1); PROTEIN TOTAL,TP 7.3 g/dL (6.4-8.2)
[2023-12-24 02:54] LABS: EOSINOPHILS PERCENT MAN 3 % (1-3); LYMPHOCYTES PERCENT MAN 28 % (20-50); MONOCYTES PERCENT MAN 17 % (2-8); SEG NEUTROPHILS PERCENT MAN 52 % (42-75)
[2023-12-24 02:55] LABS: A/G RATIO 1.4; ALBUMIN 4.2 g/dL (3.4-5.0); ANION GAP 19.4 mEq/L (7-13); BUN/CREATININE RATIO 14.9 (No establ ref range); CALCIUM 8.7 mg/dL (8.5-10.1)
[2023-12-24] MEDS: LORazepam 2 MG/ML SDV IVPUSH ONE (03:15)
[2023-12-24] MEDS: Potassium Chloride 10 MEQ Tab.ER PO ONE (03:17)
[2023-12-24 03:26] VITALS: BP 141/89; PULSE 104
== END 2023-12-24 07:40 ==
LOC: DL.ED 01:31
DX: R45.851 Suicidal ideations (principal); F10.120 Alcohol abuse with intoxication, uncomplicated; E86.0 Dehydration; I48.91 Unspecified atrial fibrillation; E78.00 Pure hypercholesterolemia, unspecified; I10 Essential (primary) hypertension; E11.9 Type 2 diabetes mellitus without complications; Z86.16 Personal history of COVID-19; F17.210 Nicotine dependence, cigarettes, uncomplicated; Z79.84 Long term (current) use of oral hypoglycemic drugs; Z88.0 Allergy status to penicillin
CPT/HCPCS: 36415; 80053; 80143; 80179; 80305; 80307; 81003; 84443; 85025; 93005; 99285; A9270; J2060; J3411; J7120; J3490

== ENCOUNTER 2024-01-09 00:23 | Emergency (ER) | payer MEDICAID ==
[2024-01-09] MEDS ORDERED: Sodium Chloride 0.9% 10 ML Syringe FLUSH PRN (00:35)
[2024-01-09 00:40] VITALS: BP 148/102; PULSE 106
[2024-01-09] MEDS: Aspirin 81 MG Tab.Chew PO ONE (00:45)
== END 2024-01-09 01:04 | disposition left against medical advice (07) ==
LOC: DL.ED 00:23
DX: R07.81 Pleurodynia (principal); I10 Essential (primary) hypertension; E78.00 Pure hypercholesterolemia, unspecified; E11.9 Type 2 diabetes mellitus without complications; E03.9 Hypothyroidism, unspecified; Z88.0 Allergy status to penicillin; Z79.84 Long term (current) use of oral hypoglycemic drugs; Z79.899 Other long term (current) drug therapy; Z86.16 Personal history of COVID-19
CPT/HCPCS: 99283; 99284; A9270

== ENCOUNTER 2024-01-12 11:44 | Emergency (ER) | payer MEDICAID ==
[2024-01-12] MEDS ORDERED: Sodium Chloride 0.9% 10 ML Syringe FLUSH PRN (11:57)
[2024-01-12 12:04] LABS: HEMATOCRIT 46.9 % (40.0-54.0); HEMOGLOBIN 16.2 g/dL (14.0-18.0); MEAN CORPUSCULAR HEMOGLOBIN 32.1 pg (27.0-34.0); MEAN CORPUSCULAR HGB CONC 34.5 g/dL (33.0-35.0); MEAN CORPUSCULAR VOLUME 93.1 fL (80-100); PLATELET COUNT,PLT 222 10^3/uL (150-450); RED BLOOD CELL COUNT 5.04 10^6/uL (4.6-6.2); WHITE BLOOD CELL COUNT,WBC 5.5 10^3/uL (5.0-10.0)
[2024-01-12 12:06] LABS: BASOPHILS PERCENT AUTO 1.6 % (0.0-1.0); EOSINOPHILS PERCENT AUTO 4.5 % (1.0-3.0); MONOCYTES PERCENT AUTO 12.1 % (2-8); NEUTROPHILS PERCENT AUTO 55.8 % (42.2-75.2)
[2024-01-12 12:10] VITALS: BP 154/96; PULSE 112
[2024-01-12] MEDS: Sodium Chloride 0.9% 1,000 ML IV ONE (12:10)
[2024-01-12 12:19] LABS: A/G RATIO 1.5; ALANINE AMINOTRANSFERASE,ALT 101 U/L (16-63); ALBUMIN 4.5 g/dL (3.4-5.0); ALKALINE PHOSPHATASE 70 U/L (46-116); ANION GAP 19.9 mEq/L (7-13); ASPARTATE AMNIOTRANSFERASE,AST 36 U/L (15-37); BILIRUBIN TOTAL 0.9 mg/dL (0.2-1.0); BLOOD UREA NITROGEN,BUN 15 mg/dL (7-18); BUN/CREATININE RATIO 15.6 (No establ ref range); C-REACTIVE PROTEIN < 0.50 ng/dL (<=0.50); CALCIUM 9.2 mg/dL (8.5-10.1); CARBON DIOXIDE,CO2 23 mmol/L (21-32); CHLORIDE,CL 103 mmol/L (98-107); CREATININE 0.96 mg/dL (0.70-1.30); EST CRCL DRUG DOSING (CG) 99.22 mL/min; ESTIMATED GFR 101 mL/min (>=60); GLUCOSE RANDOM 122 mg/dL (70-99); POTASSIUM,K 3.9 mmol/L (3.5-5.1); PROTEIN TOTAL,TP 7.5 g/dL (6.4-8.2); SODIUM,NA 142 mmol/L (136-145)
[2024-01-12 12:24] LABS: EOSINOPHILS PERCENT MAN 2 % (1-3); LYMPHOCYTES PERCENT MAN 25 % (20-50); MONOCYTES PERCENT MAN 12 % (2-8); SEG NEUTROPHILS PERCENT MAN 61 % (42-75)
== END 2024-01-12 12:35 | disposition home or self-care (01) ==
LOC: DL.ED 11:44
DX: R07.89 Other chest pain (principal); I10 Essential (primary) hypertension; E78.00 Pure hypercholesterolemia, unspecified; E11.9 Type 2 diabetes mellitus without complications; E03.9 Hypothyroidism, unspecified; F17.210 Nicotine dependence, cigarettes, uncomplicated; Z86.16 Personal history of COVID-19; Z79.899 Other long term (current) drug therapy; Z79.84 Long term (current) use of oral hypoglycemic drugs; Z88.0 Allergy status to penicillin
CPT/HCPCS: 36415; 71045; 80053; 84484; 85025; 86140; 93005; 93010; 99284; 99285; J7030

== ENCOUNTER 2024-03-18 20:15 | Emergency (ER) | payer MEDICAID ==
[2024-03-18 21:08] LABS: BASOPHILS PERCENT AUTO 1.9 % (0.0-1.0); EOSINOPHILS PERCENT AUTO 6.1 % (1.0-3.0); HEMOGLOBIN 15.8 g/dL (14.0-18.0); LYMPHOCYTES PERCENT AUTO 27.5 % (20.5-50.1); MEAN CORPUSCULAR HEMOGLOBIN 32.4 pg (27.0-34.0); MEAN CORPUSCULAR HGB CONC 34.3 g/dL (33.0-35.0); MEAN CORPUSCULAR VOLUME 94.3 fL (80-100); MONOCYTES PERCENT AUTO 7.4 % (2-8); NEUTROPHILS PERCENT AUTO 57.1 % (42.2-75.2); PLATELET COUNT,PLT 225 10^3/uL (150-450); RED BLOOD CELL COUNT 4.88 10^6/uL (4.6-6.2); WHITE BLOOD CELL COUNT,WBC 6.2 10^3/uL (5.0-10.0)
[2024-03-18 21:24] LABS: A/G RATIO 1.5; ALANINE AMINOTRANSFERASE,ALT 44 U/L (16-63); ALBUMIN 4.3 g/dL (3.4-5.0); ALKALINE PHOSPHATASE 64 U/L (46-116); ANION GAP 15.6 mEq/L (7-13); ASPARTATE AMNIOTRANSFERASE,AST 9 U/L (15-37); BILIRUBIN TOTAL 0.9 mg/dL (0.2-1.0); BLOOD UREA NITROGEN,BUN 22 mg/dL (7-18); BUN/CREATININE RATIO 20.2 (No establ ref range); C-REACTIVE PROTEIN < 0.50 ng/dL (<=0.50); CALCIUM 9.4 mg/dL (8.5-10.1); CARBON DIOXIDE,CO2 26 mmol/L (21-32); CHLORIDE,CL 107 mmol/L (98-107); CREATININE 1.09 mg/dL (0.70-1.30); EST CRCL DRUG DOSING (CG) 87.38 mL/min; ESTIMATED GFR 86 mL/min (>=60); GLUCOSE RANDOM 112 mg/dL (70-99); MAGNESIUM 2.4 mg/dL (1.8-2.4); POTASSIUM,K 3.6 mmol/L (3.5-5.1); PROTEIN TOTAL,TP 7.2 g/dL (6.4-8.2); SODIUM,NA 145 mmol/L (136-145)
[2024-03-18 21:50] VITALS: BP 141/90; PULSE 89
== END 2024-03-18 21:46 | disposition home or self-care (01) ==
LOC: DL.ED 20:15
DX: R07.2 Precordial pain (principal); I12.9 Hypertensive chronic kidney disease with stage 1 through stage 4 chronic kidney disease, or unspecified chronic kidney disease; N18.9 Chronic kidney disease, unspecified; E78.00 Pure hypercholesterolemia, unspecified; E11.9 Type 2 diabetes mellitus without complications; E03.9 Hypothyroidism, unspecified; Z88.0 Allergy status to penicillin; Z79.899 Other long term (current) drug therapy; Z86.16 Personal history of COVID-19
CPT/HCPCS: 36415; 80053; 83735; 84484; 85025; 86140; 93005; 93010; 99284; 99285

== ENCOUNTER 2024-04-26 17:06 | Emergency (ER) | payer MEDICAID, OTHER ==
[2024-04-26] MEDS: Aspirin 81 MG Tab.Chew PO ONE (17:35)
[2024-04-26 17:42] LABS: AMPHETAMINES,URINE NEGATIVE (NEGATIVE); BARBITURATES,URINE NEGATIVE (NEGATIVE); BENZODIAZEPINE,URINE NEGATIVE (NEGATIVE); MDMA (ECSTASY), URINE NEGATIVE (NEGATIVE); METHADONE,URINE NEGATIVE (NEGATIVE); METHAMPHETAMINES,URINE NEGATIVE (NEGATIVE); OPIATES,URINE NEGATIVE (NEGATIVE); OXYCODONE,URINE NEGATIVE (NEGATIVE); PHENCYCLIDINE,URINE NEGATIVE (NEGATIVE); TCA,URINE NEGATIVE (NEGATIVE)
[2024-04-26 17:43] LABS: APPEARANCE,URINE CLEAR (CLEAR); BILIRUBIN,URINE NEGATIVE (NEGATIVE); COLOR,URINE YELLOW (YELLOW); GLUCOSE,URINE NEGATIVE (NEGATIVE); KETONES,URINE NEGATIVE (NEGATIVE); LEUKOCYTE ESTERASE,URINE NEGATIVE (NEGATIVE); NITRITE,URINE NEGATIVE (NEGATIVE); OCCULT BLOOD,URINE NEGATIVE (NEGATIVE); PROTEIN,URINE TRACE (NEGATIVE)
[2024-04-26 17:47] LABS: HEMOGLOBIN 14.9 g/dL (14.0-18.0); MEAN CORPUSCULAR HEMOGLOBIN 32.4 pg (27.0-34.0); MEAN CORPUSCULAR HGB CONC 33.9 g/dL (33.0-35.0); MEAN CORPUSCULAR VOLUME 95.7 fL (80-100); PLATELET COUNT,PLT 255 10^3/uL (150-450); WHITE BLOOD CELL COUNT,WBC 6.5 10^3/uL (5.0-10.0)
[2024-04-26 17:52] LABS: BASOPHILS PERCENT AUTO 1.2 % (0.0-1.0); EOSINOPHILS PERCENT AUTO 4.6 % (1.0-3.0); LYMPHOCYTES PERCENT AUTO 23.9 % (20.5-50.1); MONOCYTES PERCENT AUTO 8.6 % (2-8); NEUTROPHILS PERCENT AUTO 61.7 % (42.2-75.2)
[2024-04-26 17:55] LABS: AMORPHOUS SEDIMENT,URINE FEW /HPF (NOT SEEN); BACTERIA,URINE RARE /HPF (0-FEW/HPF); EPITHELIAL CELLS,URINE FEW /HPF (NOT SEEN); MUCUS,URINE MODERATE /LPF (NOT SEEN); RBC,URINE 0-5 /HPF (0-5); WBC,URINE 0-5 /HPF (0-5/HPF)
[2024-04-26 18:11] LABS: A/G RATIO 1.4; ALANINE AMINOTRANSFERASE,ALT 44 U/L (16-63); ALKALINE PHOSPHATASE 75 U/L (46-116); ANION GAP 9.6 mEq/L (7-13); BILIRUBIN TOTAL 1.1 mg/dL (0.2-1.0); BLOOD UREA NITROGEN,BUN 15 mg/dL (7-18); BUN/CREATININE RATIO 15.2 (No establ ref range); CALCIUM 8.7 mg/dL (8.5-10.1); CARBON DIOXIDE,CO2 32 mmol/L (21-32); CHLORIDE,CL 106 mmol/L (98-107); CREATININE 0.99 mg/dL (0.70-1.30); EST CRCL DRUG DOSING (CG) 96.21 mL/min; ESTIMATED GFR 97 mL/min (>=60); ETHANOL BLOOD MEDICAL < 3 mg/dL (0); GLUCOSE RANDOM 126 mg/dL (70-99); LIPASE 44 U/L (16-77); MAGNESIUM 2.2 mg/dL (1.8-2.4); POTASSIUM,K 3.6 mmol/L (3.5-5.1); PROTEIN TOTAL,TP 6.8 g/dL (6.4-8.2); SODIUM,NA 144 mmol/L (136-145)
[2024-04-26 18:18] LABS: BAND PERCENT MAN 1 %; LYMPHOCYTES PERCENT MAN 20 % (20-50); SEG NEUTROPHILS PERCENT MAN 67 % (42-75)
[2024-04-26 18:19] LABS: EOSINOPHILS PERCENT MAN 4 % (1-3); MONOCYTES PERCENT MAN 8 % (2-8)
[2024-04-26] MEDS: Pantoprazole 40 MG Vial IVPUSH ONE (18:31)
[2024-04-26] MEDS: GI Cocktail Oral Solution 30 ML PO ONE (18:31)
[2024-04-26 19:04] LABS: ASPARTATE AMNIOTRANSFERASE,AST 27 U/L (15-37)
[2024-04-26 20:18] VITALS: BP 137/90; PULSE 88
== END 2024-04-26 20:13 | disposition home or self-care (01) ==
LOC: DL.ED 17:06
DX: K21.9 Gastro-esophageal reflux disease without esophagitis (principal); I12.9 Hypertensive chronic kidney disease with stage 1 through stage 4 chronic kidney disease, or unspecified chronic kidney disease; N18.9 Chronic kidney disease, unspecified; I48.91 Unspecified atrial fibrillation; E11.9 Type 2 diabetes mellitus without complications; F17.210 Nicotine dependence, cigarettes, uncomplicated; E03.9 Hypothyroidism, unspecified; E78.00 Pure hypercholesterolemia, unspecified; Z79.84 Long term (current) use of oral hypoglycemic drugs; Z79.899 Other long term (current) drug therapy; Z88.0 Allergy status to penicillin; Z86.16 Personal history of COVID-19
CPT/HCPCS: 36415; 71045; 80053; 80305; 80307; 81001; 83690; 83735; 84484; 85025; 85379; 87428; 93005; 96374; 99285; A9270; J2470

== ENCOUNTER 2024-04-30 15:37 | Emergency (ER) | payer MEDICAID ==
[2024-04-30 15:54] VITALS: BP 149/95; PULSE 115
[2024-04-30] MEDS: Take Home: Ondansetron 4 MG Tab.DIS, 5 Tab Pack PO ONE (16:27)
== END 2024-04-30 16:28 | disposition home or self-care (01) ==
LOC: DL.ED 15:37
DX: B34.9 Viral infection, unspecified (principal); I12.9 Hypertensive chronic kidney disease with stage 1 through stage 4 chronic kidney disease, or unspecified chronic kidney disease; N18.9 Chronic kidney disease, unspecified; E78.00 Pure hypercholesterolemia, unspecified; E11.22 Type 2 diabetes mellitus with diabetic chronic kidney disease; E03.9 Hypothyroidism, unspecified; F17.210 Nicotine dependence, cigarettes, uncomplicated; Z86.16 Personal history of COVID-19; Z88.0 Allergy status to penicillin; Z79.84 Long term (current) use of oral hypoglycemic drugs; Z79.899 Other long term (current) drug therapy
CPT/HCPCS: 99283; 99284; Q0162

== ENCOUNTER 2024-07-11 21:29 | Emergency (ER) | payer MEDICAID ==
[2024-07-11 22:15] VITALS: BP 156/96; PULSE 101
== END 2024-07-11 23:30 | disposition home or self-care (01) ==
LOC: DL.ED 21:29
DX: G56.01 Carpal tunnel syndrome, right upper limb (principal); I10 Essential (primary) hypertension; E78.00 Pure hypercholesterolemia, unspecified; K21.9 Gastro-esophageal reflux disease without esophagitis; E11.9 Type 2 diabetes mellitus without complications; Z86.16 Personal history of COVID-19; Z79.899 Other long term (current) drug therapy; Z79.84 Long term (current) use of oral hypoglycemic drugs; Z88.0 Allergy status to penicillin
CPT/HCPCS: 99283

== ENCOUNTER 2024-11-30 21:40 | Emergency (ER) | payer MEDICAID ==
[2024-11-30 21:58] LABS: PLATELET COUNT,PLT 236 10^3/uL (150-450); RED BLOOD CELL COUNT 4.51 10^6/uL (4.6-6.2); WHITE BLOOD CELL COUNT,WBC 6.4 10^3/uL (5.0-10.0)
[2024-11-30] MEDS: Ondansetron 4 MG/2 ML SDV IVPUSH ONE (22:00)
[2024-11-30 22:06] LABS: BASOPHILS PERCENT AUTO 1.6 % (0.0-1.0); EOSINOPHILS PERCENT AUTO 3.0 % (1.0-3.0); LYMPHOCYTES PERCENT AUTO 28.6 % (20.5-50.1); MONOCYTES PERCENT AUTO 8.4 % (2-8); NEUTROPHILS PERCENT AUTO 58.4 % (42.2-75.2)
[2024-11-30 22:22] LABS: A/G RATIO 1.5; ALANINE AMINOTRANSFERASE,ALT 73.0 U/L (16-63); ASPARTATE AMNIOTRANSFERASE,AST 31.0 U/L (15-37); BILIRUBIN TOTAL 0.5 mg/dL (0.2-1.0); BLOOD UREA NITROGEN,BUN 12.0 mg/dL (7-18); CARBON DIOXIDE,CO2 25.0 mmol/L (21-32); CHLORIDE,CL 105.0 mmol/L (98-107); CREATININE 0.85 mg/dL (0.70-1.30); EST CRCL DRUG DOSING (CG) 110.9 mL/min; GLUCOSE RANDOM 188.0 mg/dL (70-99); POTASSIUM,K 3.5 mmol/L (3.5-5.1); PROTEIN TOTAL,TP 6.8 g/dL (6.4-8.2); SODIUM,NA 143.0 mmol/L (136-145)
[2024-11-30 22:24] LABS: ESTIMATED GFR 110.0 mL/min (>=60)
[2024-11-30 22:26] LABS: LACTIC ACID 2.0 mmol/L (0.4-2.0)
[2024-11-30 23:12] LABS: BASOPHILS PERCENT MAN 1; EOSINOPHILS PERCENT MAN 1 % (1-3); LYMPHOCYTES PERCENT MAN 32 % (20-50); MONOCYTES PERCENT MAN 10 % (2-8); SEG NEUTROPHILS PERCENT MAN 56 % (42-75)
[2024-11-30] MEDS: GI Cocktail Oral Solution 30 ML PO ONE (23:40)
[2024-11-30 23:52] VITALS: BP 120/71; PULSE 80
== END 2024-12-01 00:08 | disposition home or self-care (01) ==
LOC: DL.ED 21:40
DX: K21.9 Gastro-esophageal reflux disease without esophagitis (principal); F10.120 Alcohol abuse with intoxication, uncomplicated; G56.01 Carpal tunnel syndrome, right upper limb; I12.9 Hypertensive chronic kidney disease with stage 1 through stage 4 chronic kidney disease, or unspecified chronic kidney disease; N18.9 Chronic kidney disease, unspecified; E11.22 Type 2 diabetes mellitus with diabetic chronic kidney disease; E03.9 Hypothyroidism, unspecified; Z86.16 Personal history of COVID-19; I48.91 Unspecified atrial fibrillation; E78.00 Pure hypercholesterolemia, unspecified; Z79.84 Long term (current) use of oral hypoglycemic drugs; Z88.0 Allergy status to penicillin; Z79.899 Other long term (current) drug therapy; Y90.9 Presence of alcohol in blood, level not specified
CPT/HCPCS: 36415; 71045; 80053; 80307; 83605; 83690; 83735; 84484; 85025; 93005; 96372; 96374; 96375; 99285; A9270; J2270; J2405

== ENCOUNTER 2024-12-02 14:52 | Emergency (ER) | payer MEDICAID ==
[2024-12-02 15:06] VITALS: BP 178/108; PULSE 99
== END 2024-12-02 15:08 | disposition home or self-care (01) ==
LOC: DL.ED 14:52
DX: G56.01 Carpal tunnel syndrome, right upper limb (principal); I48.91 Unspecified atrial fibrillation; E78.00 Pure hypercholesterolemia, unspecified; I12.9 Hypertensive chronic kidney disease with stage 1 through stage 4 chronic kidney disease, or unspecified chronic kidney disease; N18.9 Chronic kidney disease, unspecified; E11.22 Type 2 diabetes mellitus with diabetic chronic kidney disease; E03.9 Hypothyroidism, unspecified; Z86.16 Personal history of COVID-19; Z88.0 Allergy status to penicillin; Z79.84 Long term (current) use of oral hypoglycemic drugs; Z79.899 Other long term (current) drug therapy
CPT/HCPCS: 99283